=== PATIENT | female | born 2000 | race Caucasian/White ===

== ENCOUNTER 2020-09-11 11:35 | Emergency (ER) | payer MEDICAID, OTHER ==
[~2020-09-11] VITALS: Ht 157.5 cm; Wt 81.6 kg
[2020-09-11 12:52] LABS: Urine Bacteria NONE SEEN /hpf (None Seen); Urine Blood 3+ /uL (Negative); Urine Mucus FEW (None Seen); Urine Specific Gravity 1.015 (1.001-1.035); Urine WBC 3 /hpf (0 - 5)
[2020-09-11 12:57] LABS: Basophils # (auto) 0 10 ^3/uL (0-0.2); Basophils % (auto) 0.2 % (0.0-2.0); Eosinophils # (auto) 0.1 10 ^3/uL (0-0.8); Eosinophils % (auto) 0.6 % (0.0-7.0); Hematocrit 38.5 % (36.0-46.0); Hemoglobin 12.8 g/dL (12.2-16.2); Lymphocytes # (auto) 1.8 10 ^3/uL (0.4-5.4); Lymphocytes % (auto) 18.9 % (10.0-50.0); Mean Corpuscular Hemoglobin 28.5 pg (28.0-32.0); Mean Corpuscular Hgb Conc. 33.3 g/dL (32.0-36.0); Mean Corpuscular Volume 85.5 fL (80.0-100.0); Monocytes # (auto) 0.4 10 ^3/uL (0-1.3); Monocytes % (auto) 4.8 % (0.0-12.0); Neutrophils # (auto) 7.1 10 ^3/uL (1.6-8.6); Neutrophils % (auto) 75.5 % (37.0-80.0); Nucleated Red Blood Cells % 0.1 %; Platelet Count (auto) 277 10^3/uL (140-450); Red Cell Distribution Width 13.2 % (11.8-14.3); White Blood Cell 9.4 10^3/uL (4.4-10.8)
[2020-09-11 13:31] VITALS: BP 108/45
== END 2020-09-11 15:25 | disposition home or self-care (01) ==
LOC: ER 11:35
DX: O41.8X10 Other specified disorders of amniotic fluid and membranes, first trimester, not applicable or unspecified (principal); O46.8X1 Other antepartum hemorrhage, first trimester; Z3A.01 Less than 8 weeks gestation of pregnancy
CPT/HCPCS: 36415; 76801; 81001; 84702; 85025

== ENCOUNTER 2020-09-14 11:51 | Emergency (ER) | payer MEDICAID ==
[~2020-09-14] VITALS: Ht 157.5 cm; Wt 81.6 kg
[2020-09-14 12:23] VITALS: BP 124/66
== END 2020-09-14 13:55 | disposition home or self-care (01) ==
LOC: ER 11:51
DX: O20.8 Other hemorrhage in early pregnancy (principal); Z3A.01 Less than 8 weeks gestation of pregnancy
CPT/HCPCS: 76801

== ENCOUNTER 2021-02-21 12:39 | Observation (INO) | payer MEDICAID ==
[2021-02-21] MEDS ORDERED: PREN-96 PO (13:42)
[2021-02-21 14:26] LABS: Alcohol, Urine < 3.0 mg/dL (0-10); Barbiturate Scree,Urine NEGATIVE (NEGATIVE); Benzodiazephine Screen, Urine NEGATIVE (NEGATIVE); Cannabinoid Screen, Urine POSITIVE (NEGATIVE); Cocaine Screen, Urine NEGATIVE (NEGATIVE); Opiate Scree,Urine NEGATIVE (NEGATIVE); Phencyclidine Screen, Urine NEGATIVE (NEGATIVE)
[2021-02-21 14:34] LABS: Amphetamine Screen, Urine NEGATIVE (NEGATIVE)
== END 2021-02-21 15:48 | disposition home or self-care (01) ==
LOC: LDRP 12:39
PROVIDERS: ADMIT Obstetrics & Gynecology; ATTEND Obstetrics & Gynecology
DX: O26.853 Spotting complicating pregnancy, third trimester (principal); Z3A.32 32 weeks gestation of pregnancy; Z79.899 Other long term (current) drug therapy
CPT/HCPCS: 59025; 76805; 80307; 81002; G0378

== ENCOUNTER 2023-07-13 11:56 | Emergency (ER) | payer MEDICAID ==
[~2023-07-13] VITALS: Ht 157.5 cm; Wt 97.9 kg
[~2023-07-13 11:56] MED LIST: PREN-96 PO
[2023-07-13 12:01] VITALS: BP 106/77; PULSE 89; RESP 18; O2SAT 99
== END 2023-07-13 20:05 | disposition left against medical advice (07) ==
LOC: ER 11:56
DX: M79.675 Pain in left toe(s) (principal); M25.561 Pain in right knee; M25.562 Pain in left knee; Z53.21 Procedure and treatment not carried out due to patient leaving prior to being seen by health care provider

== ENCOUNTER 2025-03-27 11:12 | Emergency (ER) | payer MEDICAID ==
[~2025-03-27] VITALS: Ht 157.5 cm; Wt 72.5 kg
--- NOTE | 2025-03-27 12:12 | ED.PDOC ---
History of Present Illness HPI Comments This is a 24 year old female presenting to the ED with chief complaint of dizziness. Patient reports that she has been experiencing feelings of dizziness/lightheadedness when standing for a few days now along with associated blurred vision, hearing loss, frequent urination, rectal bleeding, leg numbness when sitting, and feeling like bearing down when trying to use the restroom. Patient relays that she is currently an unknown amount of weeks and she has not seen her OBGYN yet. Patient notes she was previously diagnosed last month with Hypokalemia, being prescribed Potassium supplements. Patient denies any nausea, vomiting, diarrhea, abdominal pain, vaginal bleeding, dysuria, headache, syncope, chest pain, SOB, or flank pain. Chief Complaint: Dizziness Time Seen by MD: 12:06 Primary Care Provider: UNKNOWN Reviewed Notes: Nurses Notes, Medications, Allergies Allergies: Coded Allergies: NO KNOWN ALLERGIES (Unverified , 09/14/20) Home Meds Active Scripts Nitrofurantoin Monohydrate Mac (Macrobid) 100 Mg Cap, 100 MG PO BID for 5 Days, #10 CAP Prov:DENILSON HUGHES MD 03/27/25 Reported Medications Vit W/ Ferrous Fumara ( One Daily) Daily Tab, 1 TAB PO DAILY, #90 TAB 3 Refills 02/21/21 Information Source: Patient Mode of Arrival: Ambulatory Severity: Moderate Timing: Days Duration: Since onset Prehospital treatment: None Past Medical History PAST MEDICAL HISTORY: Anxiety Past Medical History (Other): ADHD, PTSD Surgical History: Tonsillectomy POLICE DETECTIVE History: Denies all POLICE DETECTIVE Hx Family History Family History: Reviewed,noncontributory to illness, Family hx of HTN Social History Smoker: Cigarettes Alcohol: Denies ETOH Use Drugs: Marijuana Lives In: Home Constitutional: denies: chills, diaphoresis, fatigue, fever, malaise, sweats, weakness, others EENTM: reports: blurred vision, hearing loss; denies: double vision, ear bleeding, ear discharge, ear drainage, ear pain, ear ringing, eye pain, eye redness, mouth pain, mouth swelling, nasal discharge, nose bleeding, nose congestion, nose pain, photophobia, tearing, throat pain, throat swelling, voice changes, others Respiratory: denies: cough, hemoptysis, orthopnea, SOB at rest, shortness of breath, SOB with excertion, stridor, wheezing, others Cardiovascular: reports: lightheadedness; denies: chest pain, dizzy spells, diaphoresis, Dyspnea on exertion, edema, irregular heart beat, left arm pain, palpitations, PND, syncope, others Gastrointestinal: reports: rectal bleeding; denies: abdomen distended, abdominal pain, blood streaked bowels, constipated, diarrhea, dysphagia, difficulty swallowing, hematemesis, melena, nausea, poor appetite, poor fluid intake, rectal pain, vomiting, others Genitourinary: reports: frequency, ; denies: abnormal vagina bleeding, burning, dyspareunia, dysuria, flank pain, hematuria, incontinence, pain, vagina discharge, urgency, others Neurological: reports: dizziness, numbness; denies: fainting, headache, left sided numbness, left sided weakness, paresthesia, pre-existing deficit, right sided numbness, right sided weakness, seizure, speech problems, tingling, tremors, weakness, others Musculoskeletal: denies: back pain, gout, joint pain, joint swelling, muscle pain, muscle stiffness, neck pain, others Integumetry: denies: bruises, change in color, change in hair/nails, dryness, laceration, lesions, lumps, rash, wounds, others Allergic/Immunocompromised: denies: Difficulty Healing, Frequent Infections, Hives, Itching, others Hematologic/Lymphatic: denies: anemia, blood clots, easy bleeding, easy bruising, swollen glands, others Endocrine: denies: excessive hunger, excessive sweating, excessive thirst, excessive urination, flushing, intolerance to cold, intolerance to heat, unexplained weight gain, unexplained weight loss, others Psychiatric: denies: anxiety, bipolar disorder, depression, hopeless, panic disorder, schizophrenia, sleepless, suicidal, others All Other Systems: Reviewed and Negative Physical Exam General Appearance: Mild Distress HEENT: Normal ENT Inspection, Pharynx Normal, TMs Normal Neck: Full Range of Motion, Non-Tender, Normal, Normal Inspection Respiratory: Chest Non-Tender, Lungs Clear, No Accessory Muscle Use, No R espiratory Distress, Normal Breath Sounds Cardiovascular: No Edema, No JVD, No Murmur, No Gallop, Normal Peripheral Pulses, Regular Rate/Rhythm Breast Exam: Deferred Gastrointestinal: No Organomegaly, Non Tender, No Pulsatile Mass, Normal Bowel Sounds, Soft Genitalia: Deferred Pelvic: Deferred Rectal: Deferred Extremities: No calf tenderness, Normal capillary refill, Normal inspection, Normal range of motion, Non-tender, No pedal edema Musculoskeletal : Apperance: Normal Neurologic: Alert, 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 Was a procedure done?: No EKG EKG : Pulse Rate (adult): 82 [place]: Normal Cardiac Rhythm: NSR Block: None Hypertrophy: None ST: Normal Comments Low voltage Differential Dx Considerations may include: UTI in , generalized weakness X-Ray, Labs, Meds, VS Vital Signs Date Time Temp Pulse Resp B/P (MAP) Pulse Ox O2 Delivery O2 Flow Rate FiO2 03/27/25 13:39 97.9 76 18 103/64 (77) 98 97.9 03/27/25 12:48 82 03/27/25 12:44 82 03/27/25 11:12 98.6 84 16 110/72 (85) 99 98.6 Lab Test 03/27/25 13:59 03/27/25 13:02 03/27/25 12:08 Range/Units Sodium Level 139 136-145 mmol/L Potassium Level 3.7 3.5-5.1 mmol/L Chloride Level 109 H 98-107 mmol/L Carbon Dioxide Level 23 20-31 mmol/L Anion Gap 7 5-15 Blood Urea Nitrogen < 5 L 9-23 mg/dL Creatinine 0.48 L 0.550-1.02 mg/dL Glomerular Filtration Rate Calc 134 >90 mL/min BUN/Creatinine Ratio 10.4 10.0-20.0 Serum Glucose 82 74-106 mg/dL Calcium Level 10.1 8.7-10.4 mg/dL White Blood Count 8.2 4.4-10.8 10^3/uL Red Blood Count 4.67 4.0-5.20 10^6/uL Hemoglobin 13.5 12.2-16.2 g/dL Hematocrit 40.1 36.0-46.0 % Mean Corpuscular Volume 85.8 80.0-100.0 fL Mean Corpuscular Hemoglobin 28.8 28.0-32.0 pg Mean Corpuscular Hemoglobin Concent 33.6 32.0-36.0 g/dL Red Cell Distribution Width 13.8 11.8-14.3 % Platelet Count 315 140-450 10^3/uL Mean Platelet Volume 8.4 6.9-10.8 fL Neutrophils (%) (Auto) 65.9 37.0-80.0 % Lymphocytes (%) (Auto) 26.4 10.0-50.0 % Monocytes (%) (Auto) 5.8 0.0-12.0 % Eosinophils (%) (Auto) 1.6 0.0-7.0 % Basophils (%) (Auto) 0.3 0.0-2.0 % Neutrophils # (Auto) 5.4 1.6-8.6 10 ^3/uL Lymphocytes # (Auto) 2.2 0.4-5.4 10 ^3/uL Monocytes # (Auto) 0.5 0-1.3 10 ^3/uL Eosinophils # (Auto) 0.1 0-0.8 10 ^3/uL Basophils # (Auto) 0 0-0.2 10 ^3/uL Nucleated Red Blood Cells 0.0 % Beta HCG, Quantitative 002421.4 H 1.5-4.2 mIU/mL Urine Color Colorless Yellow Urine Clarity Turbid H Clear Urine pH 6.5 5.0-9.0 Urine Specific [place] 1.011 1.001-1.035 Urine Protein Negative Negative Urine Ketones Negative Negative Urine Blood Negative Negative /uL Urine Nitrite Negative Negative Urine Bilirubin Negative Negative Urine Urobilinogen Normal Negative mg/dL Urine Leukocyte Esterase 2+ Negative /uL Urine RBC 2 0 - 4 /hpf Urine Microscopic WBC 18 H 0-5 /HPF Urine Squamous Epithelial Cells Mod <5 /hpf Urine Bacteria Few H None Seen /hpf Urine Glucose Normal Normal mg/dL The urine test is positive for UTI The quantitative hCG is 307645 The patient's CBC and chemistry panel are within normal limits The pelvic ultrasound shows: IMPRESSION: 1. IUP single live fetus 9 weeks 3 days AUA corresponding to an MARY of 10/27/2025. 2. FHR: 175 beats per minute 3. Small subchorionic hemorrhage measuring 1.5 x 1.1 x 0.8 cm The patient's urine test is positive for UTI The patient is being discharged on Macrobid Patient will return the emergency department's condition worsens Images Reviewed?: Images reviewed and evaluated by me Time of 1ST Reevaluation: 15:51 Reevaluation 1ST: Improved Patient Education/Counseling: Diagnosis, Treatment, Prognosis, Need For Follow Up Family Education/Counseling: No Family Present Additional Information Reviewed patient's previous visit(s): 07/13/23 for left big toe pain The following tests were ordered, and results were reviewed by me: EKG Additional information was gathered from interviewing the following independent historian: I reviewed and agreed with the following test results read by other provider: I discussed treatments and results with medical personnel and: Patient Comprehensive systems review obtained and negative except for what is stated in the HPI. SEPSIS Sepsis Screen Physician Orders Heplock Iv (03/27/25 12:08) Ob Ultrasound Comp Less 14wks (03/27/25 12:08) Electrocardigram (03/27/25 13:02) Vital Signs Date Time Temp Pulse Resp B/P (MAP) Pulse Ox O2 Delivery O2 Flow Rate FiO2 03/27/25 13:39 97.9 76 18 103/64 (77) 98 97.9 03/27/25 12:48 82 03/27/25 12:44 82 03/27/25 11:12 98.6 84 16 110/72 (85) 99 98.6 Laboratory Tests Test 03/27/25 13:02 White Blood Count 8.2 10^3/uL (4.4-10.8) Departure 1 Departure Time of Disposition: 15:51 Impression: Primary Impression: UTI in Qualified Codes: O23.40 - Unspecified infection of urinary tract in preg lidya, unspecified trimester Additional Impression: Threatened Disposition: 01 HOME / SELF CARE / HOMELESS Condition: Fair e-Prescriptions Nitrofurantoin Monohydrate Mac (Macrobid) 100 Mg Cap 100 MG PO BID for 5 Days, #10 CAP Prov: DENILSON HUGHES MD 03/27/25 Discharged With: Self Critical Care Note Critical Care Time?: No Stability Stability form required: No Heart Score Heart Score: Heart Score Response (Comments) Value History N/A 0 EKG N/A 0 Age N/A 0 Risk Factors N/A 0 Troponin N/A 0 Total 0 I personally scribed for DENILSON HUGHES MD ([email or web address]) on 7/8/25 at 12:12. Electronically submitted by Jose Dumont ([email or web address]). I personally scribed for DENILSON HUGHES MD ([email or web address]) on 03/27/25 at 12:48. Electronically submitted by Jose Dumont ([email or web address]). DENILSON HUGHES MD Mar 27, 2025 12:12
[2025-03-27 13:05] LABS: Urine Protein, UAD Negative (Negative)
[2025-03-27 13:20] LABS: Hematocrit 40.1 % (36.0-46.0); Hemoglobin 13.5 g/dL (12.2-16.2); Mean Corpuscular Hemoglobin 28.8 pg (28.0-32.0); Mean Corpuscular Volume 85.8 fL (80.0-100.0); Nucleated Red Blood Cells % 0.0 %
[2025-03-27 13:39] VITALS: BP 103/64; PULSE 76; RESP 18; TEMP 97.9; O2SAT 98
[2025-03-27 14:21] LABS: Anion Gap 7 (5-15)
[2025-03-27 14:22] LABS: Carbon Dioxide 23 mmol/L (20-31); Chloride 109 mmol/L (98-107); Potassium 3.7 mmol/L (3.5-5.1); Sodium 139 mmol/L (136-145)
[2025-03-27 14:23] LABS: Calcium 10.1 mg/dL (8.7-10.4)
[2025-03-27 14:47] LABS: BUN/Creatinine Ratio 10.4 (10.0-20.0); Blood Urea Nitrogen < 5 mg/dL (9-23); Glucose 82 mg/dL (74-106)
--- NOTE | 2025-03-27 14:55 | DVH ---
OB ULTRASOUND <14 WEEKS: HISTORY: pain TECHNIQUE: Ultrasound OB complete <14 weeks. Multiple real-time grayscale sonographic images of the p dayanna with duplex Doppler color flow, spectral and M-mode analysis. TRANSDUCERS: Transabdominal FINDINGS: The uterus measures 9.8 x 7.2 x 8.7 The cervix not measured Right ovary measures 2.6 x 1.5 x 3.1 with normal Doppler color flow Left ovary measures 2.4 x 1.8 x 2.7 with normal Doppler color flow. 1.7 x 1.4 x 1.9 cm anechoic lesi on left ovary consistent with a small follicle. IUP single live fetus at 9 weeks 3 days average ultrasound age based on mean crown-rump length of 2.7 cm and gestational sac size of 3.9 cm heart rate detected at 175 beats per minute. Yolk sac visualized. Amniotic fluid adequate Martina-gestational space: There is a 1.5 x 1.1 x 0.8 cm subchorionic hemorrhage IMPRESSION: 1. IUP single live fetus 9 weeks 3 days AUA corresponding to an MARY of 10/27/2025. 2. FHR: 175 beats per minute 3. Small subchorionic hemorrhage measuring 1.5 x 1.1 x 0.8 cm
[2025-03-27] MEDS ORDERED: NITR-87 PO (15:12)
--- NOTE | 2025-03-28 07:23 | ECG ---
[facility] Test Date: 2025-03-27 Test Time: 12:44:54 Pat Name: DONALD CANTU Department: ER Room: Gender: F Legal Compliance Officer: SABRA : 2000 Requested By: DENILSON HUGHES Order Number: [id number] Reading MD: Micheal Ware Measurements Intervals [place] Rate: 82 P: 64 [place]: 135 QRS: 32 QRSD: 85 T: 12 QT: 368 QTc: 430 Interpretive Statements Sinus rhythm Low voltage, precordial leads Electronically Signed On 03-29-2025 19:03:01 PDT by Micheal Ware Please click the below link to view image of tracing.
== END 2025-03-27 16:33 | disposition home or self-care (01) ==
LOC: ER 11:12
DX: O20.0 Threatened abortion (principal); O23.41 Unspecified infection of urinary tract in pregnancy, first trimester; N39.0 Urinary tract infection, site not specified; F17.210 Nicotine dependence, cigarettes, uncomplicated; Z3A.09 9 weeks gestation of pregnancy; Z90.89 Acquired absence of other organs
CPT/HCPCS: 36415; 76801; 80048; 81001; 84702; 85025; 93005

== ENCOUNTER 2025-05-10 01:09 | Emergency (ER) | payer MEDICAID ==
[~2025-05-10] VITALS: Ht 157.5 cm; Wt 68.3 kg
[~2025-05-10 01:09] MED LIST changes: +NITR-87 PO
--- NOTE | 2025-05-10 02:06 | ED.PDOC ---
Back pain HPI HPI Comments 24-year-old female presents to ER with complaints of back pain x1 week. Patient reports that she has been experiencing intermittent lower back pain x 1 week that got worse with associated "low blood pressure" x 1 day. She rates her current lower back pain a 1/10 without radiation. Patient presents to ER norm otensive, ambulatory, with steady gait, in no distress and states that she did have a miscarriage on 04/14/2025. Denies fever, body aches, chills, shortness of breath, chest pain, palpitations, nausea/vomiting, abdominal/pelvic pain, flank pain, extremity weakness, hematuria/changes in urination, changes in bm or any further symptoms/complaints Chief Complaint: Back Pain Time Seen by MD: :26 Primary Care Provider: UNKNOWN Reviewed Notes: Nurses Notes, Medications, Allergies Allergies: Coded Allergies: NO KNOWN ALLERGIES (Unverified , 09/14/20) Home Meds Active Scripts Nitrofurantoin Monohydrate Mac (Macrobid) 100 Mg Cap, 100 MG PO BID for 5 Days, #10 CAP Prov:DENILSON HUGHES MD 03/27/25 Reported Medications Vit W/ Ferrous Fumara ( One Daily) Daily Tab, 1 TAB PO DAILY, #90 TAB 3 Refills 02/21/21 Information Source: Patient Mode of Arrival: Ambulatory Past Medical History PAST MEDICAL HISTORY: Anxiety Surgical History: Tonsillectomy OIL HEATERMAN History: Denies all OIL HEATERMAN Hx Family History Family History: Unknown Social History Smoker: Cigarettes, Less Than 1 Pack/Day Alcohol: Denies ETOH Use Drugs: Marijuana Lives In: Home Constitutional: denies: chills, diaphoresis, fatigue, fever, malaise, sweats, weakness, others EENTM: denies: blurred vision, double vision, ear bleeding, ear discharge, ear drainage, ear pain, ear ringing, eye pain, eye redness, hearing loss, mouth pain, mouth swelling, nasal discharge, nose bleeding, nose congestion, nose pain, photophobia, tearing, throat pain, throat swelling, voice changes, others Respiratory: denies: cough, hemoptysis, orthopnea, SOB at rest, shortness of breath, SOB with excertion, stridor, wheezing, others Cardiovascular: denies: chest pain, dizzy spells, diaphoresis, Dyspnea on exertion, edema, irregular heart beat, left arm pain, lightheadedness, palpitations, PND, syncope, others Gastrointestinal: denies: abdomen distended, abdominal pain, blood streaked bowels, constipated, diarrhea, dysphagia, difficulty swallowing, hematemesis, melena, nausea, poor appetite, poor fluid intake, rectal bleeding, rectal pain, vomiting, others Genitourinary: reports: others (As stated in HPI) Neurological: denies: dizziness, fainting, headache, left sided numbness, left sided weakness, numbness, paresthesia, pre-existing deficit, right sided numbness, right sided weakness, seizure, speech problems, tingling, tremors, weakness, others Musculoskeletal: reports: others (As stated in HPI) Integumetry: denies: bruises, change in color, change in hair/nails, dryness, laceration, lesions, lumps, rash, wounds, others Allergic/Immunocompromised: denies: Difficulty Healing, Frequent Infections, Hives, Itching, others Hematologic/Lymphatic: denies: anemia, blood clots, easy bleeding, easy bruising, swollen glands, others Endocrine: denies: excessive hunger, excessive sweating, excessive thirst, excessive urination, flushing, intolerance to cold, intolerance to heat, unexplained weight gain, unexplained weight loss, others Psychiatric: denies: anxiety, bipolar disorder, depression, hopeless, panic disorder, schizophrenia, sleepless, suicidal, others Physical Exam General Appearance: No Apparent Distress HEENT: Normal ENT Inspection, PERRL/EOMI, Pharynx Normal, TMs Normal Neck: Full Range of Motion, Non-Tender, Normal Respiratory: Chest Non-Tender, Lungs Clear, No Accessory Muscle Use, No Respira tory Distress, Normal Breath Sounds Cardiovascular: No Murmur, No Gallop, Regular Rate/Rhythm Breast Exam: Deferred Gastrointestinal: Non Tender, No Pulsatile Mass, Soft Genitalia: Deferred Pelvic: Deferred Rectal: Deferred Extremities: Normal capillary refill, Normal range of motion Musculoskeletal : Extremity Location: Back (No CVA tenderness/TTP to flanks noted bilaterally. 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 Was a procedure done?: No Sedation Sedation?: No EKG EKG : Pulse Rate (adult): 91 [place]: Normal Cardiac Rhythm: NSR (SR) Block: None Hypertrophy: None ST: Normal Back Pain Differential Dx Differential Diagnosis: AAA, Ectopic Pregnany, Fracture, Urolithiasis, Other (Neurovascular injury) X-Ray, Labs, Meds, VS Vital Signs Date Time Temp Pulse Resp B/P (MAP) Pulse Ox O2 Delivery O2 Flow Rate FiO2 05/10/25 03:00 Room Air 05/10/25 02:12 91 05/10/25 01:34 91 05/10/25 01:22 98.3 117 16 105/63 99 98.3 Lab Test 05/10/25 03:24 05/10/25 01:52 Range/Units Urine Color Colorless Yellow Urine Clarity Turbid H Clear Urine pH 6.0 5.0-9.0 Urine Specific [place] 1.004 1.001-1.035 Urine Protein Negative Negative Urine Ketones Negative Negative Urine Blood 1+ H Negative /uL Urine Nitrite Negative Negative Urine Bilirubin Negative Negative Urine Urobilinogen Normal Negative mg/dL Urine Leukocyte Esterase 3+ Negative /uL Urine RBC 9 0 - 4 /hpf Urine Microscopic WBC 12 H 0-5 /HPF Urine Squamous Epithelial Cells Mod <5 /hpf Urine Bacteria Few H None Seen /hpf Urine Glucose Normal Normal mg/dL Urine Test See comment A Negative White Blood Count 9.7 4.4-10.8 10^3/uL Red Blood Count 4.53 4.0-5.20 10^6/uL Hemoglobin 13.2 12.2-16.2 g/dL Hematocrit 39.4 36.0-46.0 % Mean Corpuscular Volume 87.0 80.0-100.0 fL Mean Corpuscular Hemoglobin 29.1 28.0-32.0 pg Mean Corpuscular Hemoglobin Concent 33.4 32.0-36.0 g/dL Red Cell Distribution Width 13.6 11.8-14.3 % Platelet Count 300 140-450 10^3/uL Mean Platelet Volume 8.6 6.9-10.8 fL Neutrophils (%) (Auto) 62.0 37.0-80.0 % Lymphocytes (%) (Auto) 30.0 10.0-50.0 % Monocytes (%) (Auto) 6.4 0.0-12.0 % Eosinophils (%) (Auto) 1.3 0.0-7.0 % Basophils (%) (Auto) 0.3 0.0-2.0 % Neutrophils # (Auto) 6.0 1.6-8.6 10 ^3/uL Lymphocytes # (Auto) 2.9 0.4-5.4 10 ^3/uL Monocytes # (Auto) 0.6 0-1.3 10 ^3/uL Eosinophils # (Auto) 0.1 0-0.8 10 ^3/uL Basophils # (Auto) 0 0-0.2 10 ^3/uL Nucleated Red Blood Cells 0.0 % Sodium Level 139 136-145 mmol/L Potassium Level 3.0 L 3.5-5.1 mmol/L Chloride Level 106 98-107 mmol/L Carbon Dioxide Level 25 20-31 mmol/L Anion Gap 8 5-15 Blood Urea Nitrogen < 5 L 9-23 mg/dL Creatinine 0.71 0.550-1.02 mg/dL Glomerular Filtration Rate Calc 120 >90 mL/min BUN/Creatinine Ratio 7.0 L 10.0-20.0 Serum Glucose 96 74-106 mg/dL Calcium Level 9.8 8.7-10.4 mg/dL Current Medications Medications (Trade) Dose Ordered Sig/Cornel Route Start Time Stop Time Status Last Admin Potassium Chloride (Klor-Con Tablet) 40 meq ONCE ONCE PO 05/10/25 02:45 05/10/25 02:46 DC 05/10/25 03:30 CBC reviewed-unremarkable BMP reviewed-potassium 3.0 Potassium 40 mEq p.o. ordered Urinalysis reviewed-urine blood 1+, urine leukocyte esterase 3+, urine nitrites negative Urine reviewed- weak positive - patient reports history of recent miscarriage Patient had improvement in symptoms, denied any pain and in no distress prior to discharge Advised to drink plenty of fluids Advised to follow up with PCP in 1-2 days Patient verbalized understanding and agreeable with current plan of care Advised to return to ER immediately if symptoms worsen Time of 1ST Reevaluation: 02:02 Reevaluation 1ST: N/A Patient Education/Counseling: Diagnosis, Treatment, Prognosis, Need For Follow Up Family Education/Counseling: No Family Present SEPSIS Sepsis Screen Date sepsis recognized/suspect: May 10, 2025 Time Sepsis recognized/suspect: 0122 Recent Procedure: No On Antibiotic Therapy: No Respiratory Rate >20: No Heart Rate >90: Yes Temp<36 C (96.8 F) or >38.3 C: No SBP <90 or MAP <65 mmHG: No New Acute Mental Status Change: No Is the patient on CPAP, BIPAP,: No Physician Orders Electrocardigram (05/10/25 01:29) Vital Signs Date Time Temp Pulse Resp B/P (MAP) Pulse Ox O2 Delivery O2 Flow Rate FiO2 05/10/25 03:00 Room Air 05/10/25 02:12 91 05/10/25 01:34 91 05/10/25 01:22 98.3 117 16 105/63 99 98.3 Laboratory Tests Test 05/10/25 01:52 White Blood Count 9.7 10^3/uL (4.4-10.8) Medications Medications Dose Ordered Sig/Cornel Route Start Time Stop Time Status Last Admin Dose Admin Potassium Chloride 40 meq ONCE ONCE PO 05/10/25 02:45 05/10/25 02:46 DC 05/10/25 03:30 Departure 1 Departure Time of Disposition: 04:32 Impression: Primary Impression: UTI (urinary tract infection) Qualified Codes: N30.01 - Acute cystitis with hematuria Disposition: 01 HOME / SELF CARE / HOMELESS Condition: Stable e-Prescriptions Acetaminophen (Acetaminophen) 500 Mg Tab 500 MG PO Q4HPRN, #30 TAB 0 Refills Prov: LEXI NOLASCO 05/10/25 Nitrofurantoin Monohydrate Mac (Macrobid) 100 Mg Cap 100 MG PO BID for 7 Days, #14 CAP 0 Refills Prov: LEXI NOLASCO 05/10/25 Critical Care Note Critical Care Time?: No Stability Stability form required: No Heart Score Heart Score: Heart Score Response (Comments) Value History N/A 0 EKG N/A 0 Age N/A 0 Risk Factors N/A 0 Troponin N/A 0 Total 0 LEXI NOLASCO May 10, 2025 02:06
[2025-05-10 02:27] LABS: Hematocrit 39.4 % (36.0-46.0); Hemoglobin 13.2 g/dL (12.2-16.2); Mean Corpuscular Hemoglobin 29.1 pg (28.0-32.0); Mean Corpuscular Volume 87.0 fL (80.0-100.0); Nucleated Red Blood Cells % 0.0 %
[2025-05-10 02:28] LABS: Chloride 106 mmol/L (98-107); Sodium 139 mmol/L (136-145)
[2025-05-10 02:29] LABS: Anion Gap 8 (5-15); Calcium 9.8 mg/dL (8.7-10.4); Carbon Dioxide 25 mmol/L (20-31)
[2025-05-10 02:31] LABS: Potassium 3.0 mmol/L (3.5-5.1)
[2025-05-10 02:34] LABS: Glucose 96 mg/dL (74-106)
[2025-05-10 02:38] LABS: BUN/Creatinine Ratio 7.0 (10.0-20.0); Blood Urea Nitrogen < 5 mg/dL (9-23)
[2025-05-10] MEDS: POTASSIUM CHL 20 Meq TABLET PO ONE (03:30)
[2025-05-10 04:29] LABS: Urine Protein, UAD Negative (Negative)
[2025-05-10] MEDS ORDERED: NITR-87 PO (04:37)
[2025-05-10] MEDS ORDERED: ACET500T58 PO (04:37)
[2025-05-10] MEDS: cefTRIAXone SOD 1,000 MG VL IM ONE (04:45)
[2025-05-10 06:04] VITALS: BP 112/73; PULSE 84; RESP 18; TEMP 98.9; O2SAT 98
--- NOTE | 2025-05-10 07:02 | ECG ---
[facility] Test Date: 2025-05-10 Test Time: 01:34:06 Pat Name: DONALD CANTU Department: ED Room: Gender: F No Experience: CINTHYA : 2000 Requested By: LEXI NOLASCO Order Number: [id number] Reading MD: Measurements Intervals [place] Rate: 91 P: 69 [place]: 135 QRS: 66 QRSD: 91 T: 35 QT: 354 QTc: 436 Interpretive Statements Sinus rhythm Please click the below link to view image of tracing.
== END 2025-05-10 06:51 | disposition home or self-care (01) ==
LOC: ER 01:09
DX: N39.0 Urinary tract infection, site not specified (principal); F17.210 Nicotine dependence, cigarettes, uncomplicated; F12.90 Cannabis use, unspecified, uncomplicated; F41.9 Anxiety disorder, unspecified; Z79.899 Other long term (current) drug therapy; Z90.89 Acquired absence of other organs
CPT/HCPCS: 36415; 80048; 81001; 81025; 85025; 93005; J0696

== ENCOUNTER 2025-05-18 12:36 | Emergency (ER) | payer MEDICAID ==
[~2025-05-18] VITALS: Ht 157.5 cm; Wt 70.2 kg
[~2025-05-18 12:36] MED LIST changes: +ACET500T58 PO
[2025-05-18 13:21] VITALS: BP 109/59; PULSE 56; RESP 14; TEMP 98.2; O2SAT 99
[2025-05-18 13:35] LABS: Hematocrit 41.8 % (36.0-46.0); Hemoglobin 13.9 g/dL (12.2-16.2); Mean Corpuscular Hemoglobin 28.9 pg (28.0-32.0); Mean Corpuscular Volume 86.9 fL (80.0-100.0); Nucleated Red Blood Cells % 0.1 %
[2025-05-18 13:49] LABS: Alanine Aminotransferase 15 U/L (7-40); Alkaline Phosphatase 68 U/L (46-116); Anion Gap 6 (5-15); Calcium 9.8 mg/dL (8.7-10.4); Carbon Dioxide 25 mmol/L (20-31); Glucose 82 mg/dL (74-106); Magnesium 2.1 mg/dL (1.6-2.6); Potassium 4.2 mmol/L (3.5-5.1); Sodium 143 mmol/L (136-145); Total Protein 7.6 g/dL (5.7-8.2)
[2025-05-18 13:50] LABS: Bilirubin, Total 0.3 mg/dL (0.2-1.0)
[2025-05-18 14:05] LABS: Albumin 5.0 g/dL (3.2-4.8); BUN/Creatinine Ratio 7.5 (10.0-20.0); Blood Urea Nitrogen < 5 mg/dL (9-23); Chloride 112 mmol/L (98-107)
[2025-05-18 14:11] LABS: Urine Protein, UAD Negative (Negative)
[2025-05-18] MEDS: LORazepam 0.5 MG TAB PO ONE (14:56)
--- NOTE | 2025-05-18 15:08 | DVH ---
EXAM DESCRIPTION: TRANSABDOMINAL PELVIC ULTRASOUND CLINICAL HISTORY: Hx of Miscarriage, vaginal bleeding COMPARISON: US OB ULTRASOUND COMP LESS 14WKS on DOS: 03/27/25, OB ULTRASOUND COMP GTR 14 WKS on DOS: 02/21/21 TECHNIQUE: Transabdominal ultrasound examination of the pelvis was performed. FINDINGS: Uterus: 8.9 X 7.3 X 5.5 Cm. No uterine masses. Endometrial echo complex: Small amount of free fluid in the endometrial canal. There is focal hetero genous thickening and vascularity of the endometrial complex at the fundus measuring 2.8 cm. Right ovary: 1.7 X 1.5 X 1.9 Cm. No right adnexal masses. Normal Doppler flow in the right ovary. Left ovary: 2.9 X 1.7 X 2.2 Cm. No left adnexal masses. Normal Doppler flow on the left ovary. Intrapelvic free fluid: None. IMPRESSION: 1. Focal endometrial thickening with vascularity at the uterine fundus, suspicious for retained produ cts of conception. Recommend OBGYN consultation.
[2025-05-18 15:11] LABS: Benzodiazephine Screen, Urine Neg (NEGATIVE); Cannabinoid Screen, Urine Pos (NEGATIVE)
[2025-05-18 15:13] LABS: Amphetamine Screen, Urine Neg (NEGATIVE); Barbiturate Scree,Urine Neg (NEGATIVE); Cocaine Screen, Urine Neg (NEGATIVE); Opiate Scree,Urine Neg (NEGATIVE); Phencyclidine Screen, Urine Neg (NEGATIVE)
--- NOTE | 2025-05-18 16:59 | ED.PDOC ---
History of Present Illness HPI Comments This is a 24-year-old female with past medical history of seizure, PTSD, and miscarriage (1 month back), came to the hospital due to restlessness and vaginal bleeding. Per patient, she had miscarriage 1 month back and subsequently had stopped bleeding but since 2 days she developed back vaginal bleeding. She also reports of lower abdominal pain. Per patient, she has history of anxiety (previously was using hydroxyzine, Ativan and clonidine), but recently has not been using any medicine. She she also reports that recently has been high stress (underwent to break ups within last month with boyfriend and girlfriend), last night went to crisis Center, by taking hydroxyzine was feeling better, today morning she was still feeling stress, was not able to see a psychiatrist and crisis Center, which prompted ER visit. She also reports of sleep disturbance, decreased oral intake, hopelessness, but denies suicidal ideation or hurting herself. PMHx: Miscarriage, anxiety, PTSD Social history: Smokes marijuana and cigarettes Home medication: Does not take any medicine Chief Complaint: Anxiety Time Seen by MD: 12:39 Primary Care Provider: UNKNOWN Allergies: Coded Allergies: NO KNOWN ALLERGIES (Unverified , 09/14/20) Home Meds Active Scripts Misoprostol (Cytotec) 200 Mcg Tab, 4 TAB VG ONCE, #4 TAB Prov:AIDA CASTILLO RESDIENT 05/18/25 Cephalexin Monohydrate (Cephalexin) 500 Mg Tab, 500 MG PO BID for 5 Days, #10 TAB Prov:HEAIDA MCCAIN RESDIENT 05/18/25 Ibuprofen Micronized (Ibuprofen) 400 Mg Tab, 400 MG PO BID for 5 Days, #10 TAB Prov:ALEXIS CASTILLOWAD RESDIENT 05/18/25 Acetaminophen (Acetaminophen) 500 Mg Tab, 500 MG PO Q4HPRN, #30 TAB 0 Refills Prov:LEXI NOLASCO 05/10/25 Nitrofurantoin Monohydrate Mac (Macrobid) 100 Mg Cap, 100 MG PO BID for 7 Days, #14 CAP 0 Refills Prov:LEXI NOLASCO 05/10/25 Nitrofurantoin Monohydrate Mac (Macrobid) 100 Mg Cap, 100 MG PO BID for 5 Days, #10 CAP Prov:DENILSON HUGHES MD 03/27/25 Reported Medications Vit W/ Ferrous Fumara ( One Daily) Daily Tab, 1 TAB PO DAILY, #90 TAB 3 Refills 02/21/21 Mode of Arrival: Ambulatory Severity: Mild Timing: Months Past Medical History PAST MEDICAL HISTORY: Anxiety Past Medical History (Other): PTSD, miscarriage Surgical History: Tonsillectomy FRINGE KNOTTER History: Denies all FRINGE KNOTTER Hx Family History Family History: Unknown Social History Smoker: Cigarettes, Less Than 1 Pack/Day Alcohol: Denies ETOH Use Drugs: Marijuana Lives In: Home Constitutional: denies: chills, diaphoresis, fatigue, fever, malaise, sweats, weakness, others EENTM: denies: blurred vision, double vision, ear bleeding, ear discharge, ear drainage, ear pain, ear ringing, eye pain, eye redness, hearing loss, mouth pain, mouth swelling, nasal discharge, nose bleeding, nose congestion, nose pa in, photophobia, tearing, throat pain, throat swelling, voice changes, others Respiratory: denies: cough, hemoptysis, orthopnea, SOB at rest, shortness of breath, SOB with excertion, stridor, wheezing, others Gastrointestinal: reports: abdominal pain; denies: abdomen distended, blood streaked bowels, constipated, diarrhea, dysphagia, difficulty swallowing, hematemesis, melena, nausea, poor appetite, poor fluid intake, rectal bleeding, rectal pain, vomiting, others Genitourinary: reports: abnormal vagina bleeding, vagina discharge Neurological: denies: dizziness, fainting, headache, left sided numbness, left sided weakness, numbness, paresthesia, pre-existing deficit, right sided numbness, right sided weakness, seizure, speech problems, tingling, tremors, w eakness, others Musculoskeletal: denies: back pain, gout, joint pain, joint swelling, muscle pain, muscle stiffness, neck pain, others Integumetry: denies: bruises, change in color, change in hair/nails, dryness, laceration, lesions, lumps, rash, wounds, others Allergic/Immunocompromised: denies: Difficulty Healing, Frequent Infections, Hives, Itching, others Hematologic/Lymphatic: denies: anemia, blood clots, easy bleeding, easy bruising, swollen glands, others Endocrine: denies: excessive hunger, excessive sweating, excessive thirst, excessive urination, flushing, intolerance to cold, intolerance to heat, unexplained weight gain, unexplained weight loss, others Psychiatric: denies: anxiety, bipolar disorder, depression, hopeless, panic disorder, schizophrenia, sleepless, suicidal, others Physical Exam General Appearance: No Apparent Distress, Normal HEENT: Normal ENT Inspection, Pharynx Normal, TMs Normal Neck: Full Range of Motion, Non-Tender, Normal, Normal Inspection Respiratory: Chest Non-Tender, Lungs Clear, No Accessory Muscle Use, No Respiratory Distress, Normal Breath Sounds Cardiovascular: No Edema, No JVD, No Murmur, No Gallop, Normal Peripheral Pulses, Regular Rate/Rhythm Breast Exam: Deferred Gastrointestinal: Tenderness Genitalia: Deferred Pelvic: Deferred Rectal: Deferred Extremities: No calf tenderness, Normal capillary refill, Normal inspection, Normal range of motion, Non-tender, No pedal edema Neurologic: Alert, dehydration plant operator II-XII 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 Was a procedure done?: No Differential Dx Considerations may include: Miscarriage Anxiety PTSD UTI X-Ray, Labs, Meds, VS Vital Signs Date Time Temp Pulse Resp B/P (MAP) Pulse Ox O2 Delivery O2 Flow Rate FiO2 05/18/25 13:24 Room Air* 0 21 05/18/25 13:21 98.2 56 14 109/59 (76) 99 98.2 05/18/25 12:38 98.2 76 16 113/77 100 98.2 Lab Test 05/18/25 13:40 05/18/25 13:39 05/18/25 13:17 Range/Units Urine Opiates Screen Neg NEGATIVE Urine Fentanyl Screen Neg NEGATIVE Urine Barbiturates Screen Neg NEGATIVE Urine Phencyclidine Screen Neg NEGATIVE Urine Amphetamines Screen Neg NEGATIVE Urine Benzodiazepines Screen Neg NEGATIVE Urine Cocaine Screen Neg NEGATIVE Urine Cannabinoids Screen Pos NEGATIVE Urine Color Colorless Yellow Urine Clarity Turbid H Clear Urine pH 6.5 5.0-9.0 Urine Specific [place] 1.004 1.001-1.035 Urine Protein Negative Negative Urine Ketones Negative Negative Urine Blood 3+ H Negative /uL Urine Nitrite Negative Negative Urine Bilirubin Negative Negative Urine Urobilinogen Normal Negative mg/dL Urine Leukocyte Esterase 3+ Negative /uL Urine RBC 20 0 - 4 /hpf Urine Microscopic WBC 40 H 0-5 /HPF Urine Squamous Epithelial Cells Mod <5 /hpf Urine Bacteria Few H None Seen /hpf Urine Glucose Normal Normal mg/dL White Blood Count 7.2 4.4-10.8 10^3/uL Red Blood Count 4.81 4.0-5.20 10^6/uL Hemoglobin 13.9 12.2-16.2 g/dL Hematocrit 41.8 36.0-46.0 % Mean Corpuscular Volume 86.9 80.0-100.0 fL Mean Corpuscular Hemoglobin 28.9 28.0-32.0 pg Mean Corpuscular Hemoglobin Concent 33.2 32.0-36.0 g/dL Red Cell Distribution Width 13.8 11.8-14.3 % Platelet Count 283 140-450 10^3/uL Mean Platelet Volume 8.5 6.9-10.8 fL Neutrophils (%) (Auto) 67.0 37.0-80.0 % Lymphocytes (%) (Auto) 23.6 10.0-50.0 % Monocytes (%) (Auto) 7.3 0.0-12.0 % Eosinophils (%) (Auto) 1.9 0.0-7.0 % Basophils (%) (Auto) 0.2 0.0-2.0 % Neutrophils # (Auto) 4.8 1.6-8.6 10 ^3/uL Lymphocytes # (Auto) 1.7 0.4-5.4 10 ^3/uL Monocytes # (Auto) 0.5 0-1.3 10 ^3/uL Eosinophils # (Auto) 0.1 0-0.8 10 ^3/uL Basophils # (Auto) 0 0-0.2 10 ^3/uL Nucleated Red Blood Cells 0.1 % Sodium Level 143 136-145 mmol/L Potassium Level 4.2 3.5-5.1 mmol/L Chloride Level 112 H 98-107 mmol/L Carbon Dioxide Level 25 20-31 mmol/L Anion Gap 6 5-15 Blood Urea Nitrogen < 5 L 9-23 mg/dL Creatinine 0.67 0.550-1.02 mg/dL Glomerular Filtration Rate Calc 124 >90 mL/min BUN/Creatinine Ratio 7.5 L 10.0-20.0 Serum Glucose 82 74-106 mg/dL Calcium Level 9.8 8.7-10.4 mg/dL Magnesium Level 2.1 1.6-2.6 mg/dL Total Bilirubin 0.3 0.2-1.0 mg/dL Aspartate Amino Transferase (AST) 19 13-40 U/L Alanine Aminotransferase (ALT) 15 7-40 U/L Alkaline Phosphatase 68 46-116 U/L Total Protein 7.6 5.7-8.2 g/dL Albumin 5.0 H 3.2-4.8 g/dL Beta HCG, Quantitative 27.0 H 1.5-4.2 mIU/mL Current Medications Medications (Trade) Dose Ordered Sig/Cornel Route Start Time Stop Time Status Last Admin Lorazepam (Ativan Tablet) 0.5 mg ONCE ONCE PO 05/18/25 13:45 05/18/25 14:22 DC 05/18/25 14:56 Time of 1ST Reevaluation: 16:00 Reevaluation 1ST: Unchanged Time of 2ND Reevaluation: 17:00 Reevaluation 2ND: Unchanged Patient Education/Counseling: Diagnosis, Treatment, Prognosis, Need For Follow Up, Other Family Education/Counseling: No Family Present Comments Patient came to the hospital due to anxiety and vaginal bleeding. CBC and CMP ordered, and within normal limit Pelvic ultrasound performed, showed focal endometrial thickening 4, shows possible retained products of conception. Spoken with gynecology (Dr. Yepez) on phone, recommended misoprostol stool 800 mcg vaginal 1 time, Keflex and pain killer and outpatient follow up. For the anxiety patient is given Benadryl 25 mg during the night for 5 days. Patient was consulted regarding the plan and recommended outpatient follow up. Patient discharged home. SEPSIS Sepsis Screen Date sepsis recognized/suspect: May 18, 2025 Time Sepsis recognized/suspect: 1240 Recent Procedure: No On Antibiotic Therapy: No Respiratory Rate >20: No Heart Rate >90: No Temp<36 C (96.8 F) or >38.3 C: No SBP <90 or MAP <65 mmHG: No New Acute Mental Status Change: No Is the patient on CPAP, BIPAP,: No Physician Orders Pelvic (05/18/25 12:42) Vital Signs Date Time Temp Pulse Resp B/P (MAP) Pulse Ox O2 Delivery O2 Flow Rate FiO2 05/18/25 13:24 Room Air* 0 21 05/18/25 13:21 98.2 56 14 109/59 (76) 99 98.2 05/18/25 12:38 98.2 76 16 113/77 100 98.2 Laboratory Tests Test 05/18/25 13:17 White Blood Count 7.2 10^3/uL (4.4-10.8) Medications Medications Dose Ordered Sig/Cornel Route Start Time Stop Time Status Last Admin Dose Admin Lorazepam 0.5 mg ONCE ONCE PO 05/18/25 13:45 05/18/25 14:22 DC 05/18/25 14:56 Departure 1 Departure Time of Disposition: 17:30 Impression: Primary Impression: UTI (urinary tract infection) Additional Impressions: Miscarriage Anxiety Disposition: 01 HOME / SELF CARE / HOMELESS Condition: Fair e-Prescriptions Misoprostol (Cytotec) 200 Mcg Tab 4 TAB VG ONCE, #4 TAB Prov: AIDA CASTILLO RESDIENT 05/18/25 Cephalexin Monohydrate (Cephalexin) 500 Mg Tab 500 MG PO BID for 5 Days, #10 TAB Prov: AIDA CASTILLO RESDIENT 05/18/25 Ibuprofen Micronized (Ibuprofen) 400 Mg Tab 400 MG PO BID for 5 Days, #10 TAB Prov: AIDA CASTILLO RESDIENT 05/18/25 Critical Care Note Critical Care Time?: No Stability Stability form required: No Heart Score Heart Score: Heart Score Response (Comments) Value History N/A 0 EKG N/A 0 Age <45 0 Risk Factors No known risk factors 0 Troponin N/A 0 Total 0 AIDA CASTILLO RESDIENT May 18, 2025 16:59
[2025-05-18] MEDS ORDERED: CEPH500T PO (17:08)
[2025-05-18] MEDS ORDERED: IBUP1TAB4 PO (17:08)
[2025-05-18] MEDS ORDERED: MISO200T67 VG (17:08)
[2025-05-18] MEDS ORDERED: DIPH25CA51 PO ×2 (17:18→18:14)
[2025-05-18] MEDS ORDERED: LORA-655 PO ×2 (17:37→18:07)
== END 2025-05-18 18:06 | disposition home or self-care (01) ==
LOC: ER 12:36
DX: N39.0 Urinary tract infection, site not specified (principal); F41.9 Anxiety disorder, unspecified; F12.90 Cannabis use, unspecified, uncomplicated; F17.210 Nicotine dependence, cigarettes, uncomplicated; Z90.89 Acquired absence of other organs; Z79.899 Other long term (current) drug therapy; Z98.890 Other specified postprocedural states
CPT/HCPCS: 36415; 76856; 80053; 80307; 81001; 83735; 84702; 85025

== ENCOUNTER 2025-05-30 19:02 | Emergency (ER) | payer MEDICAID ==
[~2025-05-30] VITALS: Ht 157.5 cm; Wt 70.4 kg
[~2025-05-30 19:02] MED LIST changes: +CEPH500T PO; +DIPH25CA51 PO; +IBUP1TAB4 PO; +LORA-655 PO; +MISO200T67 VG
[2025-05-30 20:37] LABS: Hematocrit 31.0 % (36.0-46.0); Hemoglobin 10.4 g/dL (12.2-16.2); Mean Corpuscular Hemoglobin 29.1 pg (28.0-32.0); Mean Corpuscular Volume 86.7 fL (80.0-100.0); Nucleated Red Blood Cells % 0.0 %
--- NOTE | 2025-05-30 20:37 | ED.PDOC ---
ARCH SUPPORT MAKER HPI Comments 24y F who presents to the ED for chief complaint of vaginal bleeding. Pt states she has been having vaginal bleeding and states she recently had miscarriage at [facility]. Pt states and states since and specifically over the past 2 days, she has been having vaginal bleeding with associated passing of retained products of conception and associated blood clots. Pt states she has been having increased fatigue and associated dizziness but otherwise denies any other symptoms. Pt otherwise has stable vitals in the ED. Pt denies any other symptoms at this time. Chief Complaint: Vaginal Bleed Time Seen by MD: 20:32 Reviewed Notes: Medications, Allergies Allergies: Coded Allergies: NO KNOWN ALLERGIES (Unverified , 09/14/20) Home Meds Active Scripts Acetaminophen (Acetaminophen Extra Stren) 500 Mg Tab, 500 MG PO QID PRN for 10 Days, #40 TAB Prov:JACKY GODOY MD 05/30/25 Sulfamethoxazole W/Trimethopri (Bactrim Ds Tablet) 1 Tab Tb, 1 TAB PO BID for 7 Days, #14 TAB Prov:JACKY GODOY MD 05/30/25 Clindamycin Hcl (CLEOCIN) 150 Mg Cap, 1 CAP PO QID for 10 Days, #40 CAP Prov:JACKY GODOY MD 05/30/25 Misoprostol (Cytotec) 200 Mcg Tab, 4 TAB PO ONCE for 1 Day, #4 TAB Prov:JACKY GODOY MD 05/30/25 Diphenhydramine Hcl (BENADRYL CAPSULE) 25 Mg Cp, 25 MG PO HS for 5 Days, #10 CAP Prov:HEWADMAL,HEWAD RESDIENT 05/18/25 Misoprostol (Cytotec) 200 Mcg Tab, 4 TAB VG ONCE, #4 TAB Prov:HEWADMAL,HEWAD RESDIENT 05/18/25 Cephalexin Monohydrate (Cephalexin) 500 Mg Tab, 500 MG PO BID for 5 Days, #10 TAB Prov:HEWADMAL,HEWAD RESDIENT 05/18/25 Ibuprofen Micronized (Ibuprofen) 400 Mg Tab, 400 MG PO BID for 5 Days, #10 TAB Prov:HEWADMAL,HEWAD RESDIENT 05/18/25 Acetaminophen (Acetaminophen) 500 Mg Tab, 500 MG PO Q4HPRN, #30 TAB 0 Refills Prov:LEXI NOLASCO 05/10/25 Nitrofurantoin Monohydrate Mac (Macrobid) 100 Mg Cap, 100 MG PO BID for 7 Days, #14 CAP 0 Refills Prov:LEXI NOLASCO 05/10/25 Nitrofurantoin Monohydrate Mac (Macrobid) 100 Mg Cap, 100 MG PO BID for 5 Days, #10 CAP Prov:DENILSON HUGHES MD 03/27/25 Reported Medications Lorazepam (Ativan) 0.5 Mg Tab, 0.5 MG PO HS for 5 Days, #5 TAB 05/18/25 Lorazepam (Ativan) 0.5 Mg Tab, 0.5 MG PO HS for 5 Days, #5 TAB 05/18/25 Lorazepam (Ativan) 0.5 Mg Tab, 1 TAB PO HS for 5 Days, #5 TAB 05/18/25 Vit W/ Ferrous Fumara ( One Daily) Daily Tab, 1 TAB PO DAILY, #90 TAB 3 Refills 02/21/21 Information Source: Patient Mode of Arrival: Ambulatory Past Medical History PAST MEDICAL HISTORY: Anxiety Surgical History: Tonsillectomy FOREMAN/PILE DRIVING AND ERECTION History: Denies all FOREMAN/PILE DRIVING AND ERECTION Hx Family History Family History: Unknown Social History Smoker: Cigarettes, Less Than 1 Pack/Day Alcohol: Denies ETOH Use Drugs: Marijuana Lives In: Home All Other Systems: Reviewed and Negative (see HPI) Physical Exam General Appearance: Mild Distress HEENT: Normal ENT Inspection, PERRL/EOMI Neck: Full Range of Motion, Non-Tender, Normal, Normal Inspection Respiratory: Chest Non-Tender, Lungs Clear, No Accessory Muscle Use, No Respiratory Distress, Normal Breath Sounds Cardiovascular: No Edema, No JVD, No Murmur, No Gallop, Normal Peripheral Pulses, Regular Rate/Rhythm Breast Exam: Deferred Gastrointestinal: No Organomegaly, Non Tender, No Pulsatile Mass, Normal Bowel Sounds, Soft Genitalia: Deferred Pelvic: Deferred, Vaginal Bleeding Rectal: Deferred Extremities: No calf tenderness, Normal capillary refill, Normal inspection, Normal range of motion, Non-tender, No pedal edema Neurologic: Alert, icer air conditioning II-XII nml as Tested, No Motor Deficits, Normal Affect, Normal Mood, No Sensory Deficits Cerebellar Function: Normal Reflexes: Normal Skin: Dry, Normal Color, Warm Peripheral Pulses: 1+ carotid (R), 1+ carotid (L) Lymphatic: No Adenopathy Was a procedure done? Was a procedure done?: No Differential Diagnosis (FOREMAN/PILE DRIVING AND ERECTION) Vaginal Bleeding: - Incomplete, Blood Loss Anemia, Cervicitis, Dysmenorrhea, Hormonal, Menstrual Bleeding, Myomatous Uterus, PID, Trauma, UTI, Vaginitis, Other (retained products of conception) Mass / Lesion: PID, N/A Vaginal Discharge: X-Ray, Labs, Meds, VS Vital Signs Date Time Temp Pulse Resp B/P (MAP) Pulse Ox O2 Delivery O2 Flow Rate FiO2 05/30/25 22:40 98.1 101 16 106/62 (77) 98 98.1 05/30/25 19:04 99.8 110 22 112/79 99 99.8 Lab Test 05/30/25 20:13 05/30/25 20:03 Range/Units White Blood Count 10.7 4.4-10.8 10^3/uL Red Blood Count 3.57 L 4.0-5.20 10^6/uL Hemoglobin 10.4 L 12.2-16.2 g/dL Hematocrit 31.0 L 36.0-46.0 % Mean Corpuscular Volume 86.7 80.0-100.0 fL Mean Corpuscular Hemoglobin 29.1 28.0-32.0 pg Mean Corpuscular Hemoglobin Concent 33.6 32.0-36.0 g/dL Red Cell Distribution Width 14.0 11.8-14.3 % Platelet Count 340 140-450 10^3/uL Mean Platelet Volume 8.0 6.9-10.8 fL Neutrophils (%) (Auto) 68.0 37.0-80.0 % Lymphocytes (%) (Auto) 26.2 10.0-50.0 % Monocytes (%) (Auto) 4.4 0.0-12.0 % Eosinophils (%) (Auto) 1.3 0.0-7.0 % Basophils (%) (Auto) 0.1 0.0-2.0 % Neutrophils # (Auto) 7.2 1.6-8.6 10 ^3/uL Lymphocytes # (Auto) 2.8 0.4-5.4 10 ^3/uL Monocytes # (Auto) 0.5 0-1.3 10 ^3/uL Eosinophils # (Auto) 0.1 0-0.8 10 ^3/uL Basophils # (Auto) 0 0-0.2 10 ^3/uL Nucleated Red Blood Cells 0.0 % Prothrombin Time 10.1 9.3-11.8 sec Prothrombin Time INR 0.95 0.9-1.15 Activated Partial Thromboplast Time 27.6 24.5-34.5 SEC Sodium Level 144 136-145 mmol/L Potassium Level 3.7 3.5-5.1 mmol/L Chloride Level 110 H 98-107 mmol/L Carbon Dioxide Level 27 20-31 mmol/L Anion Gap 7 5-15 Blood Urea Nitrogen 6 L 9-23 mg/dL Creatinine 0.68 0.550-1.02 mg/dL Glomerular Filtration Rate Calc 123 >90 mL/min BUN/Creatinine Ratio 8.8 L 10.0-20.0 Serum Glucose 98 74-106 mg/dL Calcium Level 9.1 8.7-10.4 mg/dL Total Bilirubin 0.2 0.2-1.0 mg/dL Aspartate Amino Transferase (AST) 12 L 13-40 U/L Alanine Aminotransferase (ALT) 10 7-40 U/L Alkaline Phosphatase 59 46-116 U/L Total Protein 6.8 5.7-8.2 g/dL Albumin 4.6 3.2-4.8 g/dL Beta HCG, Quantitative 10.9 H 1.5-4.2 mIU/mL Urine Color Yellow Yellow Urine Clarity Clear Clear Urine pH 6.0 5.0-9.0 Urine Specific [place] 1.022 1.001-1.035 Urine Protein Trace H Negative Urine Ketones Trace Negative Urine Blood 3+ H Negative /uL Urine Nitrite Negative Negative Urine Bilirubin Negative Negative Urine Urobilinogen 2 H Negative mg/dL Urine Leukocyte Esterase 2+ Negative /uL Urine RBC 10 0 - 4 /hpf Urine Microscopic WBC 45 H 0-5 /HPF Urine Squamous Epithelial Cells Few <5 /hpf Urine Bacteria Few H None Seen /hpf Urine Mucus Few None Seen Urine Glucose Normal Normal mg/dL [address] [address] Ph: [phone] DIAGNOSTIC IMAGING Diagnostic Imaging Report : [id number] Signed PATIENT: DONALD CANTU ACCT: [id number] UNIT: [id number] : 2000 LOC: ER ROOM / BED: / AGE / SEX: 24 / F ADM STATUS: REG ER SERVICE 02 ORDERING PHYSICIAN: JACKY GODOY MD PROCEDURE(s): OB4US - OB ULTRASOUND COMP LESS 14WKS REASON: Retained products of conception ORDER NUMBER(s): [id number], ACCESSION NUMBER(s): [id number] OB ULTRASOUND <14 WEEKS: HISTORY: Retained products of conception TECHNIQUE: Multiple real-time grayscale sonographic images of the pelvis with duplex Doppler color flow, spectral and M-mode analysis. FINDINGS: The uterus measures 9.2 x 5.5 x 6.0 cm. The endometrium measures 14 mm with irregularity and slight vascularity. Right ovary was not visualized. Left ovary was not visualized. IMPRESSION: 1. Thickened endometrium with suggestion of slight vascularity, decreased in size compared to the prior study. Retained products of conception cannot be excluded in the appropriate clinical setting. ATED BY: RAJAN RODRIGUEZ MD DICTATED DATE/TIME: 05/30/252207 SIGNED BY: RAJAN RODRIGUEZ MD SIGNED DATE/TIME: 05/30/252207 CC: X-Ray, Labs, Meds, VS Comment Course in the emergency department eventful patient came because of vaginal blee ding fatigue dizziness fever she received Cytotec four tablets at one point but she still not feeling well she has also has fever and she continues to bleed With 68% neutrophils 10 and H&H 10.5 and 31 BNP normal Urine shows 3+ blood 2+ leukocyte and bacteria INR is 99.5 and Beta hCG 10.9 I consulted with the doctors and the patient will be going home we will repeat the Cytotec and some antibiotic CBC [id number] Time of 1ST Reevaluation: 21:00 Reevaluation 1ST: Unchanged Time of 2ND Reevaluation: 22:26 Reevaluation 2ND: Unchanged Consultation: PCP, railroad mechanic Patient Education/Counseling: Diagnosis, Treatment, Prognosis, Need For Follow Up Family Education/Counseling: Diagnosis, Treatment, Prognosis, Need For Follow Up Departure 1 Departure Time of Disposition: 22:26 Impression: Primary Impression: Retained products of conception Additional Impression: UTI (urinary tract infection) Qualified Codes: N30.01 - Acute cystitis with hematuria Disposition: 01 HOME / SELF CARE / HOMELESS Condition: Fair Additional Instructions: Push fluids take your medication as directed and follow up with an fish grader e-Prescriptions Acetaminophen (Acetaminophen Extra Stren) 500 Mg Tab 500 MG PO QID PRN for 10 Days, #40 TAB Prov: JACKY GODOY MD 05/30/25 Sulfamethoxazole W/Trimethopri (Bactrim Ds Tablet) 1 Tab Tb 1 TAB PO BID for 7 Days, #14 TAB Prov: JACKY GODOY MD 05/30/25 Clindamycin Hcl (CLEOCIN) 150 Mg Cap 1 CAP PO QID for 10 Days, #40 CAP Prov: JACKY GODOY MD 05/30/25 Misoprostol (Cytotec) 200 Mcg Tab 4 TAB PO ONCE for 1 Day, #4 TAB Prov: JACKY GODOY MD 05/30/25 Discharged With: Self Critical Care Note Critical Care Time?: No Stability Stability form required: No Heart Score Heart Score: Heart Score Response (Comments) Value History N/A 0 EKG N/A 0 Age <45 0 Risk Factors No known risk factors 0 Troponin N/A 0 Total 0 I personally scribed for JACKY GODOY MD ([email or web address]) on 05/30/25 at 20:37. Electronically submitted by Osiris Owens ([facility] [email or web address] I personally scribed for JACKY GODOY MD ([email or web address]) on 05/30/25 at 22:22. Electronically submitted by Osiris Owens ([facility] [place]). JACKY GODOY MD May 30, 2025 20:37
[2025-05-30 20:49] LABS: Alanine Aminotransferase 10 U/L (7-40); Albumin 4.6 g/dL (3.2-4.8); Alkaline Phosphatase 59 U/L (46-116); Anion Gap 7 (5-15); BUN/Creatinine Ratio 8.8 (10.0-20.0); Calcium 9.1 mg/dL (8.7-10.4); Carbon Dioxide 27 mmol/L (20-31); Glucose 98 mg/dL (74-106); Potassium 3.7 mmol/L (3.5-5.1); Sodium 144 mmol/L (136-145); Total Protein 6.8 g/dL (5.7-8.2)
[2025-05-30 20:52] LABS: INR 0.95 (0.9-1.15); Partial Thromboplastin Time 27.6 SEC (24.5-34.5); Prothrombin Time 10.1 sec (9.3-11.8)
[2025-05-30 20:57] LABS: Bilirubin, Total 0.2 mg/dL (0.2-1.0); Blood Urea Nitrogen 6 mg/dL (9-23); Chloride 110 mmol/L (98-107)
[2025-05-30 21:12] LABS: Urine Protein, UAD TRACE (Negative)
--- NOTE | 2025-05-30 22:11 | DVH ---
OB ULTRASOUND <14 WEEKS: HISTORY: Retained products of conception TECHNIQUE: Multiple real-time grayscale sonographic images of the pelvis with duplex Doppler color f low, spectral and M-mode analysis. FINDINGS: The uterus measures 9.2 x 5.5 x 6.0 cm. The endometrium measures 14 mm with irregularity and slight v ascularity. Right ovary was not visualized. Left ovary was not visualized. IMPRESSION: 1. Thickened endometrium with suggestion of slight vascularity, decreased in size compared to the lesvia or study. Retained products of conception cannot be excluded in the appropriate clinical setting.
[2025-05-30] MEDS ORDERED: MISO200T67 PO (22:31)
[2025-05-30] MEDS ORDERED: CLIN150C PO (22:31)
[2025-05-30] MEDS ORDERED: BACDST PO (22:31)
[2025-05-30] MEDS ORDERED: ACET-6 PO (22:38)
[2025-05-30 22:40] VITALS: BP 106/62; PULSE 101; RESP 16; TEMP 98.1; O2SAT 98
[2025-05-30] MEDS: SODIUM CHLORIDE 0.9% 500 ML IV ONE (23:17)
[2025-05-30] MEDS: cefTRIAXone W LIDOCAINE 1 GM IM IM ONE ×2 (23:17)
[2025-05-30] MEDS: cefTRIAXone SOD 1,000 MG VL ONE (23:17)
[2025-05-31] MEDS ORDERED: HYDR-4902 PO (22:16)
[2025-05-31] MEDS ORDERED: CEPH500C PO (22:16)
[2025-05-31] MEDS ORDERED: IBUP-1456 PO (22:16)
== END 2025-05-30 23:41 | disposition home or self-care (01) ==
LOC: ER 19:06
DX: O02.1 Missed abortion (principal); F41.9 Anxiety disorder, unspecified; F17.210 Nicotine dependence, cigarettes, uncomplicated; N39.0 Urinary tract infection, site not specified; Z90.89 Acquired absence of other organs; Z79.899 Other long term (current) drug therapy; Z98.890 Other specified postprocedural states
CPT/HCPCS: 36415; 76801; 76817; 80053; 81001; 84702; 85025; 85610; 85730; 86850; 86900; 86901; 96372; 99285; J0696

== ENCOUNTER 2025-05-31 14:32 | Inpatient (IN) | payer MEDICAID ==
[~2025-05-31] VITALS: Ht 157.5 cm; Wt 70.9 kg
[~2025-05-31 14:32] MED LIST changes: +ACET-6 PO; +BACDST PO; +CLIN150C PO; +MISO200T67 PO
--- NOTE | 2025-05-31 14:45 | ED.PDOC ---
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 Patient reports that she had a miscarriage in March, however, she has continued to have intermittent vaginal bleeding with clots present since then. Patient relays that she was seen on 05/18 for the same complaint and an US showed products of conception, so she was prescribed Cytotec. Patient states that she has not had a D&C performed yet, but despite using Cytotec, she has continued to bleed, so she came back to the ED last night. Patient notes that the US still showed products of conception, so she was again prescribed Cytotec. Patient reports that she has associated 3/10 lower abdominal pain and vaginal bleeding with clots present at this time. Patient denies any N/V, dysuria, or vaginal discharge. Time Seen by MD: 14:41 Reviewed Notes: Nurses Notes, Linux Solar[employer] Administrator Notes, Medications Allergies: Coded Allergies: NO KNOWN ALLERGIES (Unverified , 09/14/20) Home Meds Active Scripts Acetaminophen (Acetaminophen Extra Stren) 500 Mg Tab, 500 MG PO QID PRN for 10 Days, #40 TAB Prov:JACKY GODOY MD 05/30/25 Sulfamethoxazole W/Trimethopri (Bactrim Ds Tablet) 1 Tab Tb, 1 TAB PO BID for 7 Days, #14 TAB Prov:JACKY GODOY MD 05/30/25 Clindamycin Hcl (CLEOCIN) 150 Mg Cap, 1 CAP PO QID for 10 Days, #40 CAP Prov:JACKY GODOY MD 05/30/25 Misoprostol (Cytotec) 200 Mcg Tab, 4 TAB PO ONCE for 1 Day, #4 TAB Prov:JACKY GODOY MD 05/30/25 Diphenhydramine Hcl (BENADRYL CAPSULE) 25 Mg Cp, 25 MG PO HS for 5 Days, #10 CAP Prov:HEWADMAL,HEWAD RESDIENT 05/18/25 Misoprostol (Cytotec) 200 Mcg Tab, 4 TAB VG ONCE, #4 TAB Prov:HEWADMALHEWAD RESDIENT 05/18/25 Cephalexin Monohydrate (Cephalexin) 500 Mg Tab, 500 MG PO BID for 5 Days, #10 TAB Prov:HEWADMTIMOTHYHEWAD RESDIENT 05/18/25 Ibuprofen Micronized (Ibuprofen) 400 Mg Tab, 400 MG PO BID for 5 Days, #10 TAB Prov:AIDA CASTILLO RESDIENT 05/18/25 Acetaminophen (Acetaminophen) 500 Mg Tab, 500 MG PO Q4HPRN, #30 TAB 0 Refills Prov:LEXI NOLASCO 05/10/25 Nitrofurantoin Monohydrate Mac (Macrobid) 100 Mg Cap, 100 MG PO BID for 7 Days, #14 CAP 0 Refills Prov:LEXI NOLASCO 05/10/25 Nitrofurantoin Monohydrate Mac (Macrobid) 100 Mg Cap, 100 MG PO BID for 5 Days, #10 CAP Prov:DENILSON HUGHES MD 03/27/25 Reported Medications Lorazepam (Ativan) 0.5 Mg Tab, 0.5 MG PO HS for 5 Days, #5 TAB 05/18/25 Lorazepam (Ativan) 0.5 Mg Tab, 0.5 MG PO HS for 5 Days, #5 TAB 05/18/25 Lorazepam (Ativan) 0.5 Mg Tab, 1 TAB PO HS for 5 Days, #5 TAB 05/18/25 Vit W/ Ferrous Fumara ( One Daily) Daily Tab, 1 TAB PO DAILY, #90 TAB 3 Refills 02/21/21 Information Source: Patient, Emergency Med Personnel Mode of Arrival: EMS Timing: Months Prehospital treatment: None Severity: Moderate Bleeding Quality: Dark, Clotted, Products of Conception Onset Of Mass/Bleeding: Other (Miscarriage) Associated Signs and Symptoms: Vaginal Bleeding, Abdominal Pain Past Medical History PAST MEDICAL HISTORY: Anxiety Surgical History: Tonsillectomy 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 Hx Family History Family History: Unknown Social History Smoker: Cigarettes, Less Than 1 Pack/Day Alcohol: Denies ETOH Use Drugs: Marijuana Lives In: Home Constitutional: denies: chills, diaphoresis, fatigue, fever, malaise, sweats, weakness, others EENTM: denies: blurred vision, double vision, ear bleeding, ear discharge, ear drainage, ear pain, ear ringing, eye pain, eye redness, hearing loss, mouth pain, mouth swelling, nasal discharge, nose bleeding, nose congestion, nose pain, photophobia, tearing, throat pain, throat swelling, voice changes, others Respiratory: denies: cough, hemoptysis, orthopnea, SOB at rest, shortness of breath, SOB with excertion, stridor, wheezing, others Cardiovascular: denies: chest pain, dizzy spells, diaphoresis, Dyspnea on exertion, edema, irregular heart beat, left arm pain, lightheadedness, palpitations, PND, syncope, others Gastrointestinal: reports: abdominal pain; denies: abdomen distended, blood streaked bowels, constipated, diarrhea, dysphagia, difficulty swallowing, hematemesis, melena, nausea, poor appetite, poor fluid intake, rectal bleeding, rectal pain, vomiting, others Genitourinary: reports: abnormal vagina bleeding; denies: burning, dyspareunia, dysuria, flank pain, frequency, hematuria, incontinence, pain, , vagina discharge, urgency, others Neurological: denies: dizziness, fainting, headache, left sided numbness, left sided weakness, numbness, paresthesia, pre-existing deficit, right sided numbness, right sided weakness, seizure, speech problems, tingling, tremors, weakness, others Musculoskeletal: denies: back pain, gout, joint pain, joint swelling, muscle pain, muscle stiffness, neck pain, others Integumetry: denies: bruises, change in color, change in hair/nails, dryness, laceration, lesions, lumps, rash, wounds, others Allergic/Immunocompromised: denies: Difficulty Healing, Frequent Infections, Hives, Itching, others Hematologic/Lymphatic: denies: anemia, blood clots, easy bleeding, easy bruising, swollen glands, others Endocrine: denies: excessive hunger, excessive sweating, excessive thirst, excessive urination, flushing, intolerance to cold, intolerance to heat, unexplained weight gain, unexplained weight loss, others Psychiatric: denies: anxiety, bipolar disorder, depression, hopeless, panic disorder, schizophrenia, sleepless, suicidal, others All Other Systems: Reviewed and Negative Physical Exam General Appearance: Moderate Distress HEENT: Pale Conjuntivae (L), Pale Conjuntivae (R), Pharynx Normal, TMs Normal Neck: Full Range of Motion, Non-Tender, Normal, Normal Inspection Respiratory: Chest Non-Tender, Lungs Clear, No Accessory Muscle Use, No Respiratory Distress, Normal Breath Sounds Cardiovascular: No Edema, No JVD, No Murmur, No Gallop, Normal Peripheral Pulses, Regular Rate/Rhythm Breast Exam: Deferred Gastrointestinal: No Organomegaly, Non Tender, No Pulsatile Mass, Normal Bowel Sounds, Soft Genitalia: Deferred Pelvic: Deferred Rectal: Deferred Extremities: No calf tenderness, Normal capillary refill, No pedal edema Musculoskeletal : Apperance: Normal Neurologic: Alert, clinical practitioner II-XII nml as Tested, Motor Weakness, Normal Affect, Normal Mood, No Sensory Deficits Cerebellar Function: Normal Reflexes: Normal Skin: Dry, Normal Color, Warm Lymphatic: No Adenopathy Was a procedure done? Was a procedure done?: No Differential Diagnosis (ANDROID FRAMEWORK DEVELOPER) Vaginal Bleeding: - Complete, - Incomplete, Menorrhagia X-Ray, Labs, Meds, VS Vital Signs Date Time Temp Pulse Resp B/P (MAP) Pulse Ox O2 Delivery O2 Flow Rate FiO2 05/31/25 15:30 87 18 104/56 (72) 98 05/31/25 15:30 84 16 98 Room Air* 0 21 05/31/25 15:12 98.8 101 18 130/87 100 98.8 Lab Test 05/31/25 15:49 Range/Units White Blood Count 9.1 4.4-10.8 10^3/uL Red Blood Count 3.46 L 4.0-5.20 10^6/uL Hemoglobin 10.2 L 12.2-16.2 g/dL Hematocrit 30.3 L 36.0-46.0 % Mean Corpuscular Volume 87.7 80.0-100.0 fL Mean Corpuscular Hemoglobin 29.6 28.0-32.0 pg Mean Corpuscular Hemoglobin Concent 33.8 32.0-36.0 g/dL Red Cell Distribution Width 14.3 11.8-14.3 % Platelet Count 315 140-450 10^3/uL Mean Platelet Volume 8.1 6.9-10.8 fL Neutrophils (%) (Auto) 67.1 37.0-80.0 % Lymphocytes (%) (Auto) 26.6 10.0-50.0 % Monocytes (%) (Auto) 4.3 0.0-12.0 % Eosinophils (%) (Auto) 1.7 0.0-7.0 % Basophils (%) (Auto) 0.3 0.0-2.0 % Neutrophils # (Auto) 6.1 1.6-8.6 10 ^3/uL Lymphocytes # (Auto) 2.4 0.4-5.4 10 ^3/uL Monocytes # (Auto) 0.4 0-1.3 10 ^3/uL Eosinophils # (Auto) 0.2 0-0.8 10 ^3/uL Basophils # (Auto) 0 0-0.2 10 ^3/uL Nucleated Red Blood Cells 0.0 % Beta HCG, Quantitative 10.4 H 1.5-4.2 mIU/mL IV Hep-Lock is being established The patient was given normal saline as a bolus. We called Dr. Yepez in at this time we repeated the quantitative hCG and is 10.4. The patient's CBC shows anemia with a hemoglobin of 10.2 The patient is going to be admitted secondary to persistent bleeding. A pelvic ultrasound has been ordered. The patient will undergo a D&C most likely tomorrow. The patient will remain NPO after midnight We have discussed the findings with the patient The patient has remained somewhat hypotensive with a blood pressure now at 98/57 Time of 1ST Reevaluation: 17:10 Reevaluation 1ST: Unchanged Patient Education/Counseling: Diagnosis, Treatment, Prognosis Family Education/Counseling: No Family Present Departure 1 Departure Time of Disposition: 17:09 Impression: Primary Impression: Retained products of conception Additional Impressions: Hypotension Qualified Codes: I95.0 - Idiopathic hypotension Vaginal bleeding Disposition: ADMITTED INPATIENT Admit to: Med Surg Condition: Fair Critical Care Note Critical Care Time?: No Stability Stability form required: Yes Unstable for transfer: ED Physician Assesment (Clinical assesment) Heart Score Heart Score: Heart Score Response (Comments) Value History N/A 0 EKG N/A 0 Age N/A 0 Risk Factors N/A 0 Troponin N/A 0 Total 0 I personally scribed for DENILSON HUGHES MD ([email or web address]) on 05/31/25 at 14:45. Electronically submitted by Jose Dumont ([email or web address]). DENILSON HUGHES MD May 31, 2025 14:45
[2025-05-31 15:30] VITALS: PULSE 84; RESP 16; O2SAT 98
[2025-05-31 16:13] LABS: Hematocrit 30.3 % (36.0-46.0); Hemoglobin 10.2 g/dL (12.2-16.2); Mean Corpuscular Hemoglobin 29.6 pg (28.0-32.0); Mean Corpuscular Volume 87.7 fL (80.0-100.0); Nucleated Red Blood Cells % 0.0 %
[2025-05-31] MEDS: SODIUM CHLORIDE 0.9% 1,000 ML IV ONE (17:25)
--- NOTE | 2025-05-31 18:06 | DVH ---
Technique: Real-time ultrasound images through the pelvis using a transabdominal transducer. For bett er evaluation of the ovaries and endometrial stripe, an endovaginal transducer was used. Indication: Pain and bleeding Comparison: US OB ULTRASOUND COMP LESS 14WKS on DOS: 05/30/25 Findings: The uterus measures 8.6 cm. The endometrial stripe measures 24 mm. Endometrium is extremely heterog eneous in appearance. There is significantly decreased vascularity within the endometrial complex. T here is a heterogeneous lesion in the lower endometrial segment/ endocervical region measuring 4.2 x 3.2 cm with some internal vascularity Right ovary measures 3.6 x 2.8 x 1. cm. Normal flow on color doppler images. No focal masses are iden tified. Left ovary measures 1.9 x 1.6 x 1.8 cm. Normal flow on color doppler images. No focal masses are ale ntified. There is no significant free fluid in the pelvis. Impression: Abnormally thickened endometrial complex up to 24 mm with significantly increased vascularity which c ould be secondary to retained products conception, AV malformation. Correlate clinically. Overall t his appears more pronounced than on the previous examination. 4.2 x 3.2 cm heterogeneous lesion with internal vascularity in the lower endometrial/ endocervical re gion could represent passing products conception. Recommend boiler service technician consultation for further evaluation
[2025-05-31 18:21] LABS: Hematocrit 33.1 % (36.0-46.0); Hemoglobin 11.0 g/dL (12.2-16.2); Mean Corpuscular Hemoglobin 28.7 pg (28.0-32.0); Mean Corpuscular Volume 86.5 fL (80.0-100.0); Nucleated Red Blood Cells % 0.1 %
[2025-05-31 18:29] LABS: Potassium 3.7 mmol/L (3.5-5.1); Sodium 143 mmol/L (136-145)
[2025-05-31 18:30] LABS: Anion Gap 9 (5-15); Calcium 9.3 mg/dL (8.7-10.4); Carbon Dioxide 23 mmol/L (20-31); Chloride 111 mmol/L (98-107)
[2025-05-31 18:35] LABS: Glucose 97 mg/dL (74-106)
[2025-05-31 18:36] LABS: INR 0.97 (0.9-1.15); Partial Thromboplastin Time 28.3 SEC (24.5-34.5); Prothrombin Time 10.3 sec (9.3-11.8)
[2025-05-31 18:37] LABS: BUN/Creatinine Ratio 7.4 (10.0-20.0); Blood Urea Nitrogen < 5 mg/dL (9-23)
[2025-05-31] MEDS: ACETAMINOPHEN 325 MG TAB PO ONE (18:47)
[2025-05-31 19:30] VITALS: PULSE 74; RESP 15; O2SAT 99
[2025-05-31 19:38] LABS: Cannabinoid Screen, Urine Pos (NEGATIVE)
[2025-05-31] MEDS ORDERED: LACT. RINGERS/OXYTOCIN 20UNITS 1,000 ML IV ONE (20:00)
[2025-05-31 20:27] LABS: Amphetamine Screen, Urine Neg (NEGATIVE); Barbiturate Scree,Urine Neg (NEGATIVE); Benzodiazephine Screen, Urine Neg (NEGATIVE); Cocaine Screen, Urine Neg (NEGATIVE); Opiate Scree,Urine Neg (NEGATIVE); Phencyclidine Screen, Urine Neg (NEGATIVE)
[2025-05-31] MEDS: LACT. RINGERS/OXYTOCIN 20UNITS 1,000 ML IV ONE ×2 (20:27→23:15)
[2025-05-31 20:48] LABS: Hematocrit 26.9 % (36.0-46.0); Hemoglobin 9.1 g/dL (12.2-16.2); Mean Corpuscular Hemoglobin 29.4 pg (28.0-32.0); Mean Corpuscular Volume 86.9 fL (80.0-100.0); Nucleated Red Blood Cells % 0.0 %
[2025-05-31] MEDS: TRANEXAMIC ACID 1,000 MG in SODIUM CHL 0.9% 100 ML IV ONE (20:53)
[2025-05-31] MEDS ORDERED: ACETAMINOPHEN 325 MG TAB PO PRN (21:00)
[2025-05-31] MEDS: LACTATED RINGER'S 1,000 ML IV SCH (21:00)
[2025-05-31] MEDS: ONDANSETRON HCL 4 MG/2 ML VIAL IV PRN (21:31)
[2025-05-31] MEDS: ONDANSETRON HCL 4 MG/2 ML VIAL ONE (21:32)
[2025-05-31 21:48] VITALS: BP 107/69; PULSE 70; RESP 23; TEMP 98.1
[2025-05-31] MEDS ORDERED: MIDAZOLAM HCL 2MG/2ML 2ml VIAL (1mg/ml) ONE (22:09)
[2025-05-31] MEDS ORDERED: LIDOCAINE 1% INJ PF 5ML AMP ONE (22:09)
[2025-05-31] MEDS ORDERED: PROPOFOL 10 MG/ML 20 ML IV ONE (22:09)
[2025-05-31] MEDS ORDERED: fentaNYL CITRATE 100 MCG/2 ML VL ONE (22:09)
[2025-05-31] MEDS ORDERED: KETAMINE 50mg/ML 1ml syringe ONE (22:09)
[2025-05-31] MEDS ORDERED: SODIUM CHLORIDE LOCK 10 ML ONE (22:09)
[2025-05-31 22:15] VITALS: BP 101/57; PULSE 64; RESP 12; TEMP 98.5
[2025-05-31] MEDS ORDERED: HYDR-4902 PO ×2 (22:16)
[2025-05-31] MEDS ORDERED: IBUP-1456 PO ×2 (22:16)
[2025-05-31] MEDS ORDERED: CEPH500C PO ×2 (22:16)
--- NOTE | 2025-05-31 22:18 | DVHHP2 ---
History of Present Illness Reason for Visit: Retained products of conception History of Present Illness The patient is a 24-year-old female with past medical history of anxiety who presented to [facility] ED with complaint of vaginal bleeding. Patient reports that she had a miscarriage in March, however, she has continued to have intermittent vaginal bleeding with clots present since then. Patient states that she was seen on 05/18/25 for the same complaint and an US showed products of conception, so she was prescribed Cytotec. Patient states that she has not had a D&C performed yet, but despite using Cytotec, she has continued to bleed, so she came back to the ED last night. Patient was seen and evaluated in the ED, laboratory data shows WBC 10.4, hemoglobin 9.1, hematocrit 26.9, platelets 307, sodium 143, potassium 3.7, BUN 5, creatinine 0.68, glucose 97, calcium 9.3, hCG 10.4, blood pressure 105/72, heart rate 66, temperature 98.6 F, O2 saturation 99% on room air. Obstetric ultrasound revealing abnormally thickened endometrial complex up to 24 mm with significantly increased vascularity which could be secondary to retained products conception. Please see medication orders section in the computer. On my assessment, patient denied chest pain, no headache, no dizziness, no diaphoresis, no shortness of breaths, no nausea, no vomiting, no fever, no chills. Patient was admitted for further evaluation and medical management. Past Medical History Anxiety Past Surgical History Tonsillectomy Family History Reviewed, noncontributory to the management of this case. Past Social History The patient lives at home, smokes cigarettes less than 1 pack per day, denies alcohol use, uses marijuana. Review of Systems Constitutional: No: Fever, Chills, Sweats, Weakness, Malaise, Other Eyes: No: Pain, Vision change, Conjunctivae inflammation, Eyelid inflammation, Other, Redness ENT: No: Ear pain, Ear discharge, Nose pain, Nose discharge, Nose congestion, Mouth pain, Mouth swelling, Throat pain, Throat swelling, Other Respiratory: No: Cough, Dry, Shortness of breath, SOB with excertion, Wheezing, Hemoptysis, Pleuritic Pain, Sputum, Wheezing, Other Cardiovascular: No: Chest Pain, Palpitations, Orthopnea, Paroxysmal Noc. Dyspnea, Edema, Lt Headedness, Other Gastrointestinal: Abdominal Pain; No: Nausea, Vomiting, Diarrhea, Constipation, Melena, Hematochezia, Other Genitourinary: No Dysuria, No Frequency, No Incontinence, No Hematuria, No Retention; Other (Abdominal vaginal bleeding) Musculoskeletal: No: other, neck pain, shoulder pain, arm pain, back pain, hand pain, leg pain, foot pain Skin: No: Rash, Lesions, Jaundice, Bruising, Other Neurological: No: Weakness, Numbness, Incoordination, Change in speech, Confusion, Seizures, Other Allergies: Coded Allergies: NO KNOWN ALLERGIES (Unverified , 09/14/20) Medications Current Medications Medications Dose Ordered Sig/Cornel Route Start Time Stop Time Status Last Admin Dose Admin Lactated Ringer's 1,000 ml @ 75 mls/hr [id number] IV 05/31/25 21:00 Acetaminophen/ Hydrocodone Bitart 1 tab Q4HP PRN PO 05/31/25 21:00 Ondansetron HCl 4 mg Q4HP PRN IV 05/31/25 21:00 05/31/25 21:32 4 MG Acetaminophen 650 mg Q6HP PRN PO 05/31/25 21:00 Exam Vital Signs Vital Signs Date Time Temp Pulse Resp B/P (MAP) Pulse Ox O2 Delivery O2 Flow Rate FiO2 05/31/25 22:15 98.5 64 12 101/57 98.5 05/31/25 21:48 100 05/31/25 19:30 Room Air* 0 21 General Appearance: Alert, Oriented X3, Cooperative, No acute distress HEENT: Atraumatic, PERRLA, EOMI, Mucous membr. moist/pink Respiratory: Clear to auscultation, Normal air movement Cardiovascular: Regular rate, Normal S1, Normal S2, No murmurs Abdominal: Normal bowel sounds, Soft, No hepatospenomegaly, No masses, Other (Reports tenderness) Extremities: No clubbing, No cyanosis, No edema, Normal pulses, No tenderness/swelling Skin: No rashes, No breakdown, No significant lesion Neuro: Normal gait, Normal speech, Strength at 5/5 X4 ext, Normal tone, Sensation intact, Cranial nerves 3-12 NL, Reflexes 2+ Psych/Mental Status: Mental status NL, Mood NL Labs/Xrays Labs Test 05/31/25 20:25 05/31/25 18:00 05/31/25 17:57 05/31/25 15:49 Range/Units White Blood Count 10.4 4.4-10.8 10^3/uL Red Blood Count 3.09 L 4.0-5.20 10^6/uL Hemoglobin 9.1 #L 12.2-16.2 g/dL Hematocrit 26.9 #L 36.0-46.0 % Mean Corpuscular Volume 86.9 80.0-100.0 fL Mean Corpuscular Hemoglobin 29.4 28.0-32.0 pg Mean Corpuscular Hemoglobin Concent 33.9 32.0-36.0 g/dL Red Cell Distribution Width 13.9 11.8-14.3 % Platelet Count 307 140-450 10^3/uL Mean Platelet Volume 8.3 6.9-10.8 fL Neutrophils (%) (Auto) 64.3 37.0-80.0 % Lymphocytes (%) (Auto) 30.3 10.0-50.0 % Monocytes (%) (Auto) 3.8 0.0-12.0 % Eosinophils (%) (Auto) 1.2 0.0-7.0 % Basophils (%) (Auto) 0.4 0.0-2.0 % Neutrophils # (Auto) 6.7 1.6-8.6 10 ^3/uL Lymphocytes # (Auto) 3.1 0.4-5.4 10 ^3/uL Monocytes # (Auto) 0.4 0-1.3 10 ^3/uL Eosinophils # (Auto) 0.1 0-0.8 10 ^3/uL Basophils # (Auto) 0 0-0.2 10 ^3/uL Nucleated Red Blood Cells 0.0 % Urine Opiates Screen Neg NEGATIVE Urine Fentanyl Screen Neg NEGATIVE Urine Barbiturates Screen Neg NEGATIVE Urine Phencyclidine Screen Neg NEGATIVE Urine Amphetamines Screen Neg NEGATIVE Urine Benzodiazepines Screen Neg NEGATIVE Urine Cocaine Screen Neg NEGATIVE Urine Cannabinoids Screen Pos NEGATIVE Prothrombin Time 10.3 9.3-11.8 sec Prothrombin Time INR 0.97 0.9-1.15 Activated Partial Thromboplast Time 28.3 24.5-34.5 SEC Sodium Level 143 136-145 mmol/L Potassium Level 3.7 3.5-5.1 mmol/L Chloride Level 111 H 98-107 mmol/L Carbon Dioxide Level 23 20-31 mmol/L Anion Gap 9 5-15 Blood Urea Nitrogen < 5 L 9-23 mg/dL Creatinine 0.68 0.550-1.02 mg/dL Glomerular Filtration Rate Calc 123 >90 mL/min BUN/Creatinine Ratio 7.4 L 10.0-20.0 Serum Glucose 97 74-106 mg/dL Calcium Level 9.3 8.7-10.4 mg/dL Beta HCG, Quantitative 10.4 H 1.5-4.2 mIU/mL PATIENT: DONALD CANTU ACCT: [id number] UNIT: [id number] : 2000 LOC: ER ROOM / BED: / AGE / SEX: 24 / F ADM STATUS: REG ER SERVICE [id number] ORDERING PHYSICIAN: DENILSON HUGHES MD PROCEDURE(s): OB4US - OB ULTRASOUND COMP LESS 14WKS REASON: Pain and bleeding ORDER NUMBER(s): [id number], ACCESSION NUMBER(s): [id number] Technique: Real-time ultrasound images through the pelvis using a transabdominal transducer. For better evaluation of the ovaries and endometrial stripe, an endovaginal transducer was used. Indication: Pain and bleeding Comparison: US OB ULTRASOUND COMP LESS 14WKS on DOS: 05/30/25 Findings: The uterus measures 8.6 cm. The endometrial stripe measures 24 mm. Endometrium is extremely heterogeneous in appearance. There is significantly decreased vascularity within the endometrial complex. There is a heterogeneous lesion in the lower endometrial segment/endocervical region measuring 4.2 x 3.2 cm with some internal vascularity Right ovary measures 3.6 x 2.8 x 1. cm. Normal flow on color doppler images. No focal masses are identified. Left ovary measures 1.9 x 1.6 x 1.8 cm. Normal flow on color doppler images. No focal masses are identified. There is no significant free fluid in the pelvis. Impression: Abnormally thickened endometrial complex up to 24 mm with significantly increased vascularity which could be secondary to retained products conception, AV malformation. Correlate clinically. Overall this appears more pronounced than on the previous examination. 4.2 x 3.2 cm heterogeneous lesion with internal vascularity in the lower endometrial/ endocervical region could represent passing products conception. Recommend commercial lending assistant consultation for further evaluation SEPSIS Sepsis Screen Date sepsis recognized/suspect: May 31, 2025 Time Sepsis recognized/suspect: 1929 Recent Procedure: No On Antibiotic Therapy: No Respiratory Rate >20: No Heart Rate >90: No Temp<36 C (96.8 F) or >38.3 C: No SBP <90 or MAP <65 mmHG: No New Acute Mental Status Change: No Is the patient on CPAP, BIPAP,: No Physician Orders Type And Screen (05/31/25 17:05) Npo (Nothing By Mouth) Diet (06/01/25 Breakfast) Ob Ultrasound Comp Less 14wks (05/31/25 17:05) Obtain Consent For: (05/31/25 17:54) Obtain Consent For Anesthesia (05/31/25 17:54) Lact. Ringers/Oxytocin 20units (Oxytocin (05/31/25 20:00) Vital Signs .PER UNIT PROTOCOL (05/31/25 20:17) Administer Blood Products UD (05/31/25 20:17) * Parole Director Consultation (05/31/25 20:59) Lactated Ringer's (05/31/25 21:00) Allergies (05/31/25 20:59) Code Status (05/31/25 20:59) Oxygen Per Hour (05/31/25 20:59) Hydrocodone-Acet 5/325mg Tab ([place] 5/32 (05/31/25 21:00) Ondansetron Hcl (Zofran) (05/31/25 21:00) Complete Blood Count (06/01/25 04:00) Comprehensive Metabolic Panel (06/01/25 04:00) Condition: Serious (05/31/25 20:59) Acetaminophen Tablet (Tylenol Tablet) (05/31/25 21:00) Bedrest With Bathroom Privileg (05/31/25 20:59) Sequential Compression Device (05/31/25 ) Admit (05/31/25 22:17) Nitroglycerin Sublingual (Ntrostat Subli (05/31/25 22:30) Morphine Sulfate Injection (05/31/25 22:30) Stat Ekg For Chest Pain (05/31/25 22:17) Notify Md Of Changes From Base (05/31/25 22:17) Copyright Expert For 24 Hours (05/31/25 22:17) Emergency Dysrhythmia Protocol (05/31/25 22:17) Rhythm Strips Once Every Shift (05/31/25 22:17) Oxygen By Nasal Cannula (05/31/25 22:17) Vital Signs Date Time Temp Pulse Resp B/P (MAP) Pulse Ox O2 Delivery O2 Flow Rate FiO2 05/31/25 22:15 98.5 64 12 101/57 98.5 05/31/25 21:48 98.1 70 23 107/69 98.1 05/31/25 21:48 98.1 70 23 107/69 (82) 100 98.1 05/31/25 19:47 98.6 05/31/25 19:30 98.6 66 23 105/72 (83) 99 98.6 05/31/25 19:30 74 15 99 Room Air* 0 21 05/31/25 17:30 98.2 80 16 104/62 (76) 97 98.2 05/31/25 15:30 87 18 104/56 (72) 98 05/31/25 15:30 84 16 98 Room Air* 0 05/31/25 15:12 98.8 101 18 130/87 100 98.8 Laboratory Tests Test 05/31/25 15:49 05/31/25 17:57 05/31/25 20:25 White Blood Count 9.1 10^3/uL (4.4-10.8) 10.9 10^3/uL (4.4-10.8) H 10.4 10^3/uL (4.4-10.8) Medications Medications Dose Ordered Sig/Cornel Route Start Time Stop Time Status Last Admin Dose Admin Acetaminophen 650 mg ONCE ONCE PO 05/31/25 18:45 05/31/25 18:46 DC 05/31/25 18:47 650 MG Ondansetron HCl 4 mg Q4HP PRN IV 05/31/25 21:00 05/31/25 21:32 4 MG Oxytocin 1,000 ml @ 150 mls/hr Q6H40M ONCE IV 05/31/25 20:00 06/01/25 02:39 05/31/25 20:27 150 MLS/HR Sodium Chloride 1,000 ml @ 1,000 mls/hr Q1H ONCE IV 05/31/25 17:15 05/31/25 18:14 DC 05/31/25 17:25 1,000 MLS/HR Tranexamic Acid 1000 mg/Sodium Chloride 110 ml @ 300 mls/hr ONCE ONCE IV 05/31/25 20:30 05/31/25 20:51 DC 05/31/25 20:53 300 MLS/HR Assessment/Plan Assessment/Plan Retained products of conception Vaginal bleeding Hypotension Idiopathic hypotension Plan 1. Admit to the telemetry unit 2. Breathing treatment 3. Pain control management 4. Management of fluids and electrolytes 5. Consultation for surgery 6. Diagnostic tests obstetric ultrasound 7. DVT prophylaxis-on SCDs 8. Repeat labs CBC, CMP in a.m. 9. Continue with current medical management 10. Treatment plan discussed with patient and RN. Patient verbalized understanding. Plan discussed with: Patient, Other (RN) My Orders Orders - MICHAEL CHOU DNP Procedure Category Date Status Time * Parole Director Consultation CONS 05/31/25 Transmitted 20:59 Lactated Ringer's PHA 05/31/25 In Process 21:00 Allergies MARLA 05/31/25 In Process 20:59 Code Status CODE 05/31/25 Transmitted 20:59 Oxygen Per Hour RT 05/31/25 Transmitted 20:59 Hydrocodone-Acet PHA 05/31/25 In Process 5/325mg Tab ([place] 21:00 Ondansetron Hcl PHA 05/31/25 In Process (Zofran) 21:00 Complete Blood Count LAB 06/01/25 Verified 04:00 Comprehensive LAB 06/01/25 Verified Metabolic Panel 04:00 Condition: Serious MARLA 05/31/25 In Process 20:59 Acetaminophen Tablet PHA 05/31/25 In Process (Tylenol Tablet) 21:00 Bedrest With Bathroom MARLA 05/31/25 In Process Privileg 20:59 Sequential MARLA 05/31/25 In Process Compression Device Admit ADMIT 05/31/25 Verified 22:17 Nitroglycerin [facility] 05/31/25 Verified Sublingual (Ntrostat 22:30 Morphine Sulfate PHA 05/31/25 Verified Injection 22:30 Stat Ekg For Chest [facility] 05/31/25 Verified Pain 22:17 Notify Md Of Changes [facility] 05/31/25 Verified From Base 22:17 Copyright Expert For [facility] 05/31/25 Verified 24 Hours 22:17 Emergency Dysrhythmia [facility] 05/31/25 Verified Protocol 22:17 Rhythm Strips Once [facility] 05/31/25 Verified Every Shift 22:17 Oxygen By Nasal RT 05/31/25 Verified Cannula 22:17 Problem List: (1) Retained products of conception (2) Vaginal bleeding (3) Hypotension (4) Idiopathic hypotension Date of Service: May 31, 2025 Billing Provider: MICHAEL CHOU DNP Common Visit Codes: [id number] INP/OBS CARE (HIGH) MICHAEL CHOU DNP May 31, 2025 22:18
[2025-05-31] MEDS ORDERED: HYDROmorphone HCL 2 MG/ML VL/or syr IV PRN ×2 (22:30)
[2025-05-31] MEDS ORDERED: METOCLOPRAMIDE HCL 5MG/ml INJ 2ml VIAL IV PRN (22:30)
[2025-05-31] MEDS ORDERED: MORPHINE SULFATE 4 MG/ML SYR/VIAL IV PRN (22:30)
[2025-05-31] MEDS ORDERED: MORPHINE SULFATE INJ 2 MG/ml SYRG IV PRN ×2 (22:30)
[2025-05-31] MEDS ORDERED: NITROGLYCERIN 0.4 MG SL TAB SL PRN (22:30)
[2025-05-31] MEDS: KETOROLAC TROMETH 30 MG/ML 1ML VIAL IV ONE (22:30)
--- NOTE | 2025-05-31 22:33 | DVHHP ---
ADMIT DATE: 05/31/2025 CHIEF COMPLAINT: Heavy vaginal bleeding. HISTORY OF PRESENT ILLNESS: This is a 24-year-old female brought into the Emergency Room by ambulance with complaint of vaginal bleeding. The patient states she had miscarriage in March; however, continues to have intermittent vaginal bleeding with clots. She was seen on 05/18. Sono showed products of conception. She took Cytotec and was continued with vaginal bleeding. She is requesting having a D and C. Ultrasound reveals vascularity consistent with products of conception. Beta hCG was 10. The patient started bleeding heavy. Subsequently was given TXA and Pitocin despite which she continued bleeding. Subsequently, the patient is taken for D and C. PAST MEDICAL HISTORY: Anxiety, ADHD, post traumatic syndrome. PAST SURGICAL HISTORY: Tonsillectomy. SOCIAL HISTORY: Heavy smoker, marijuana use. ALLERGIES: No known drug allergies. REVIEW OF SYSTEMS: Consistent with HPI. PHYSICAL EXAMINATION: VITAL SIGNS: Stable. Afebrile. HEENT: Pale conjunctivae. CARDIOVASCULAR: Regular rate and rhythm. LUNGS: Clear to auscultation. BREASTS: Symmetrical, no masses. ABDOMEN: Soft. PELVIC: Cervix 1 cm, uterus, 8 to 9 weeks size. Adnexa, nonpalpable. EXTREMITIES: No clubbing, cyanosis or edema. IMPRESSION: Incomplete bleeding. PLAN: D and C suction curettage. Informed consent obtained. Risks and complications of surgery including infection, perforation of the uterus, bleeding, discussed with the patient. Options reviewed. All questions answered to the satisfaction of the patient. She wishes to proceed with planned procedure. DO GENOVEVA Chilel/KEMAR TID: [id number] RECEIPT: [id number]
--- NOTE | 2025-05-31 23:10 | DVHOP2 ---
Operative Report DATE OF OPERATION: 05/31/25 PREOPERATIVE DIAGNOSES: Incomplete POSTOPERATIVE DIAGNOSES: Incomplete SURGEON: Josue Yepez D.O. ANESTHESIOLOGIST: laila TYPE OF ANESTHESIA : MAC CONSENT: The patient was informed of the risks and benefits of the procedure. The patient was informed of the risks and benefits of the procedure. These include but are not limited to , complications of anesthesia, postoperative infection, incomplete relief of symptoms, recurrence of symptoms, damage to blood vessels, nerves and tendons, deep venous thrombosis, pulmonary embolism and possible need for repeat surgery in the future. FINDINGS: Cervix is 1 cm and uterus 9 weeks' size. Adnexa nonpalpable. TISSUE TO PATHOLOGY: POC. PROCEDURES: Dilatation and curettage and suction curettage. PROCEDURE IN DETAIL: The patient was taken to the operating room where she was placed under MAC anesthesia. The patient was then prepped and draped in the usual sterile manner in dorsal lithotomy position. Bladder was emptied using straight catheter. Examination under anesthesia revealed the above findings. A weighted speculum was placed in the vagina. Anterior lip of the cervix was grasped using a single-tooth tenaculum. Cervix was dilated. Uterus was sounded to 9 cm. Products of conception were evacuated using suction curette, size #7, sharp curetting of endometrial cavity was done. The patient tolerated the procedure well. All the instruments were removed from vagina and cervix. The patient was taken to the recovery room in a stable condition. ESTIMATED BLOOD LOSS: 200 mL Visit Coding OBGYN Date of Service: May 31, 2025 Billing Provider: JOSUE YEPEZ DO CLAIMS REPRESENTATIVE Common Visit Codes: 72219-[id number] INP/OBS CARE (HIGH) CLAIMS REPRESENTATIVE Procedure Codes: 51900-YN OF INCOMP AB,ANY TRIMESTER JOSUE YEPEZ DO May 31, 2025 23:10
--- NOTE | 2025-05-31 23:11 | POSTOP ---
Post-Operative Note Post-Operative Note Preop Diagnosis incompelet ab Postop Diagnosis: same Operation performed d and c,suction currettage Specimen poc Anesthesia: Mac Anesthesiologist: laila Blood Loss(fluid mgmt) 200ml Surgeon Josue Yepez Implant na Complications & Mgmt none Date 05/31/25 Time 23:10 Visit Coding OBGYN Date of Service: May 31, 2025 Billing Provider: JOSUE YEPEZ DO PHYSICIAN Common Visit Codes: [id number] INP/OBS CARE (HIGH) PHYSICIAN Procedure Codes: 04571-YG OF INCOMP AB,ANY TRIMESTER JOSUE YEPEZ DO May 31, 2025 23:11
[2025-05-31] MEDS ORDERED: ONDANSETRON HCL 4 MG/2 ML VIAL IV PRN (23:15)
[2025-05-31 23:16] VITALS: RESP 13; O2SAT 98
[2025-05-31] MEDS ORDERED: OXYTOCIN 10UNIT/ML 1ML VIAL ONE (23:17)
[2025-06-01] VITALS (7 sets, daily range): BP systolic 89–109; BP diastolic 51–60; PULSE 60–91; RESP 14–18; TEMP 97.5–97.8; O2SAT 96–100
[2025-06-01] MEDS: HYDROcodone-ACET 5/325MG TAB PO PRN (01:03)
[2025-06-01] MEDS: ceFAZolin 1GM/50ML 50 ML IV SCH (05:26)
[2025-06-01 05:35] LABS: Albumin 3.5 g/dL (3.2-4.8); Anion Gap 7 (5-15); Carbon Dioxide 23 mmol/L (20-31); Glucose 94 mg/dL (74-106); Potassium 3.6 mmol/L (3.5-5.1); Sodium 142 mmol/L (136-145)
[2025-06-01 05:36] LABS: Bilirubin, Total 0.3 mg/dL (0.2-1.0)
[2025-06-01 05:37] LABS: Hematocrit 27.2 % (36.0-46.0); Hemoglobin 9.2 g/dL (12.2-16.2); Mean Corpuscular Hemoglobin 29.2 pg (28.0-32.0); Mean Corpuscular Volume 86.2 fL (80.0-100.0); Nucleated Red Blood Cells % 0.0 %
[2025-06-01 05:40] LABS: Alanine Aminotransferase < 9 U/L (7-40); Alkaline Phosphatase 43 U/L (46-116); BUN/Creatinine Ratio 9.1 (10.0-20.0); Blood Urea Nitrogen < 5 mg/dL (9-23); Calcium 8.3 mg/dL (8.7-10.4); Chloride 112 mmol/L (98-107); Total Protein 5.4 g/dL (5.7-8.2)
--- NOTE | 2025-06-01 11:32 | DVHPN2 ---
Chief Complaints Patient reports: No new complaints, Feels better Nursing reports: No new complaints Objective Vitals Vital Signs Date Time Temp Pulse Resp B/P (MAP) Pulse Ox O2 Delivery O2 Flow Rate FiO2 06/01/25 08:30 97.5 91 18 89/54 (66) 96 97.5 06/01/25 07:38 Room Air* 0 21 Medications Current Medications Medications (Trade) Dose Ordered Sig/Cornel Route PRN Reason Start Time Stop Time Status Last Admin Acetaminophen (Tylenol Tablet) 650 mg Q6HP PRN PO PAIN SCALE 1-3 OR TEMP>100.4 05/31/25 21:00 Acetaminophen/ Hydrocodone Bitart ([place] 5/325MG Tab) 1 tab Q4HP PRN PO MODERATE PAIN (4-6 PAIN SCALE) 05/31/25 21:00 06/01/25 05:27 Cefazolin Sodium 50 ml @ 100 mls/hr Q8HR IV 06/01/25 06:00 06/01/25 05:26 Lactated Ringer's 1,000 ml @ 75 mls/hr [id number] IV 05/31/25 21:00 Morphine Sulfate 2 mg Q30M PRN IV FOR CHEST PAIN 05/31/25 22:30 Nitroglycerin (Ntrostat Sublingual) 0.4 mg Q5MINP PRN SL FOR CHEST PAIN 05/31/25 22:30 Ondansetron HCl (Zofran) 4 mg Q4HP PRN IV NAUSEA / VOMITING 05/31/25 21:00 05/31/25 21:32 Ondansetron HCl (Zofran) 4 mg Q4HPRN PRN IV NAUSEA / VOMITING 05/31/25 23:15 Lungs: Normal Cardiovascular: Normal Abdominal: Soft Extremities: Normal Studies Laboratory Tests 06/01/25 04:19 Test 06/01/25 04:19 Range/Units Serum Glucose 94 74-106 mg/dL Ass/Plan Assessment s/p d and c,suction Plan dc home fu in 2wks Visit Coding OBGYN Date of Service: Jun 01, 2025 Billing Provider: JOSUE SR DO HUMAN RESOURCES PSYCHOLOGIST Common Visit Codes: [id number] INP/OBS CARE (HIGH) HUMAN RESOURCES PSYCHOLOGIST Procedure Codes: 91415-WU OF INCOMP AB,ANY TRIMESTER JOSUE SR DO Jun 01, 2025 11:32
--- NOTE | 2025-06-01 11:35 | DVHDS2 ---
Physician Discharge Progress N Final Diagnosis: s/p d and c,suction Operations or Procedures: Operations or Procedures d and c,suction currettage Condition on Discharge: Good Disposition: Home Discharge Instructions: Diet: Regular Activity: No Restrictions, As Tolerated Medications: zofran Follow Up Care: Specialist: 1w Discharge Statement: "Patient was advised to return to the ER or call 911 if any headaches, dizziness, shortness of breath, chest pain, abdominal pain, bleeding, fevers, or worsening of medical condition. Patient was counseled about treatment plan, medications, possible side effects, patientverbalized understanding. All questions were answered to the best of my ability. This discharge took greater then 30 minutes in planning, reviewing documentation, counseling the patient, and discussing with other team members." Visit Coding OBGYN Date of Service: Jun 01, 2025 Billing Provider: JOSUE SR DO INTERVENTIONAL SALE CONSULTANT Common Visit Codes: 77838-[id number] OBS CARE (HIGH), 17409-OWX/OBS DISCH DAY >30MIN INTERVENTIONAL SALE CONSULTANT Procedure Codes: 30531-TG OF INCOMP AB,ANY TRIMESTER JOSUE SR DO Jun 01, 2025 11:35
--- NOTE | 2025-06-01 11:42 | DVHDS2 ---
Discharge Summary Date of Admission May 31, 2025 at 22:17 Date of Discharge: Jun 01, 2025 Admitting Diagnosis Incomplete Labs/Diagnostic Data: Laboratory Results Test 06/01/25 04:19 05/31/25 18:00 05/31/25 17:57 05/31/25 15:49 White Blood Count 8.0 10^3/uL (4.4-10.8) Red Blood Count 3.15 10^6/uL (4.0-5.20) Hemoglobin 9.2 g/dL (12.2-16.2) Hematocrit 27.2 % (36.0-46.0) Mean Corpuscular Volume 86.2 fL (80.0-100.0) Mean Corpuscular Hemoglobin 29.2 pg (28.0-32.0) Mean Corpuscular Hemoglobin Concent 33.8 g/dL (32.0-36.0) Red Cell Distribution Width 14.8 % (11.8-14.3) Platelet Count 253 10^3/uL (140-450) Mean Platelet Volume 8.6 fL (6.9-10.8) Neutrophils (%) (Auto) 60.2 % (37.0-80.0) Lymphocytes (%) (Auto) 34.0 % (10.0-50.0) Monocytes (%) (Auto) 4.6 % (0.0-12.0) Eosinophils (%) (Auto) 0.9 % (0.0-7.0) Basophils (%) (Auto) 0.3 % (0.0-2.0) Neutrophils # (Auto) 4.8 10 ^3/uL (1.6-8.6) Lymphocytes # (Auto) 2.7 10 ^3/uL (0.4-5.4) Monocytes # (Auto) 0.4 10 ^3/uL (0-1.3) Eosinophils # (Auto) 0.1 10 ^3/uL (0-0.8) Basophils # (Auto) 0 10 ^3/uL (0-0.2) Nucleated Red Blood Cells 0.0 % Sodium Level 142 mmol/L (136-145) Potassium Level 3.6 mmol/L (3.5-5.1) Chloride Level 112 mmol/L (98-107) Carbon Dioxide Level 23 mmol/L (20-31) Anion Gap 7 (5-15) Blood Urea Nitrogen < 5 mg/dL (9-23) Creatinine 0.55 mg/dL (0.550-1.02) Glomerular Filtration Rate Calc 130 mL/min (>90) BUN/Creatinine Ratio 9.1 (10.0-20.0) Serum Glucose 94 mg/dL (74-106) Calcium Level 8.3 mg/dL (8.7-10.4) Total Bilirubin 0.3 mg/dL (0.2-1.0) Aspartate Amino Transferase (AST) 16 U/L (13-40) Alanine Aminotransferase (ALT) < 9 U/L (7-40) Alkaline Phosphatase 43 U/L (46-116) Total Protein 5.4 g/dL (5.7-8.2) Albumin 3.5 g/dL (3.2-4.8) Urine Opiates Screen Neg (NEGATIVE) Urine Fentanyl Screen Neg (NEGATIVE) Urine Barbiturates Screen Neg (NEGATIVE) Urine Phencyclidine Screen Neg (NEGATIVE) Urine Amphetamines Screen Neg (NEGATIVE) Urine Benzodiazepines Screen Neg (NEGATIVE) Urine Cocaine Screen Neg (NEGATIVE) Urine Cannabinoids Screen Pos (NEGATIVE) Prothrombin Time 10.3 sec (9.3-11.8) Prothrombin Time INR 0.97 (0.9-1.15) Activated Partial Thromboplast Time 28.3 SEC (24.5-34.5) Beta HCG, Quantitative 10.4 mIU/mL (1.5-4.2) Other Laboratory Tests 06/01/25 04:19 Brief Hx & Hospital Course: The patient is a 24-year-old female with past medical history of anxiety who presented to [facility] ED with complaint of vaginal bleeding. Patient reports that she had a miscarriage in March, however, she has continued to have intermittent vaginal bleeding with clots present since then. Patient states that she was seen on 05/18/25 for the same complaint and an US showed products of conception, so she was prescribed Cytotec. Patient states that she has not had a D&C performed yet, but despite using Cytotec, she has continued to bleed, so she came back to the ED last night. Patient was seen and evaluated in the ED, laboratory data shows WBC 10.4, hemoglobin 9.1, hematocrit 26.9, platelets 307, sodium 143, potassium 3.7, BUN 5, creatinine 0.68, glucose 97, calcium 9.3, hCG 10.4, blood pressure 105/72, heart rate 66, temperature 98.6 F, O2 saturation 99% on room air. Obstetric ultrasound revealing abnormally thickened endometrial complex up to 24 mm with significantly increased vascularity which could be secondary to retained products conception. Patient underwent surgery, tolerated procedure well. Will be discharged home. Operations or Procedures Operative Report DATE OF OPERATION: 05/31/25 PREOPERATIVE DIAGNOSES: Incomplete POSTOPERATIVE DIAGNOSES: Incomplete SURGEON: Sandhya Yepez D.O. ANESTHESIOLOGIST: laila TYPE OF ANESTHESIA : MAC CONSENT: The patient was informed of the risks and benefits of the procedure. The patient was informed of the risks and benefits of the procedure. These include but are not limited to , complications of anesthesia, postoperative infection, incomplete relief of symptoms, recurrence of symptoms, damage to blood vessels, nerves and tendons, deep venous thrombosis, pulmonary embolism and possible need for repeat surgery in the future. FINDINGS: Cervix is 1 cm and uterus 9 weeks' size. Adnexa nonpalpable. TISSUE TO PATHOLOGY: POC. PROCEDURES: Dilatation and curettage and suction curettage. PROCEDURE IN DETAIL: The patient was taken to the operating room where she was placed under MAC anesthesia. The patient was then prepped and draped in the usual sterile manner in dorsal lithotomy position. Bladder was emptied using straight catheter. Examination under anesthesia revealed the above findings. A weighted speculum was placed in the vagina. Anterior lip of the cervix was grasped using a single-tooth tenaculum. Cervix was dilated. Uterus was sounded to 9 cm. Products of conception were evacuated using suction curette, size #7, sharp curetting of endometrial cavity was done. The patient tolerated the procedure well. All the instruments were removed from vagina and cervix. The patient was taken to the recovery room in a stable condition. ESTIMATED BLOOD LOSS: 200 mL Condition at Discharge: Poor Final Diagnosis/Problems List Incomplete Vaginal bleeding Hypotension Idiopathic hypotension Discharge Disposition: Home Discharge Instruct/Medications Diet: Regular Activity: No Restrictions, As Tolerated Follow Up/Referral: 2wks OB clinic DC clinic Medications: see med recc Scheduled Acetaminophen (Acetaminophen), 500 MG PO Q4HPRN Cephalexin Monohydrate (Cephalexin), 500 MG PO BID Cephalexin Monohydrate (Cephalexin), 500 MG PO QID Clindamycin Hcl (Cleocin), 1 CAP PO QID Diphenhydramine Hcl (Benadryl Capsule), 25 MG PO HS Ibuprofen Micronized (Ibuprofen), 400 MG PO BID Lorazepam (Ativan), 1 TAB PO HS, (Reported) Lorazepam (Ativan), 0.5 MG PO HS, (Reported) Lorazepam (Ativan), 0.5 MG PO HS, (Reported) Misoprostol (Cytotec), 4 TAB VG ONCE Misoprostol (Cytotec), 4 TAB PO ONCE Nitrofurantoin Monohydrate Mac (Macrobid), 100 MG PO BID Nitrofurantoin Monohydrate Mac (Macrobid), 100 MG PO BID Vit W/ Ferrous Fumara ( One Daily), 1 TAB PO DAILY, (Reported) Sulfamethoxazole W/Trimethopri (Bactrim Ds Tablet), 1 TAB PO BID Scheduled PRN Acetaminophen (Acetaminophen Extra Stren), 500 MG PO QID PRN Hydrocodone-Acetaminophen (Hydrocodone Bitartrate/AC 5-325 mg), 1 TAB PO Q6HPRN PRN Ibuprofen (Ibuprofen), 800 MG PO TID PRN Discharge Statement: "Patient was advised to return to the ER or call 911 if any headaches, dizziness, shortness of breath, chest pain, abdominal pain, bleeding, fevers, or worsening of medical condition. Patient was counseled about treatment plan, medications, possible side effects, patientverbalized understanding. All questions were answered to the best of my ability. This discharge took greater then 30 minutes in planning, reviewing documentation, counseling the patient, and discussing with other team members." ASSESSMENT ASSESSMENT Assessment s/p d and c,suction Date of Service: Jun 01, 2025 Billing Provider: SEAN CLEMONS MD Common Visit Codes: 05505-HXP/OBS DISCH DAY >30min SEAN CLEMONS MD Jun 01, 2025 11:42
[2025-06-02] MEDS ORDERED: CIPR-173 PO (22:10)
[2025-06-02] MEDS ORDERED: HYDR-4902 PO (22:10)
[2025-06-02] MEDS ORDERED: PERCOT PO (23:10)
== END 2025-06-01 13:10 | disposition home or self-care (01) | DRG 543 ==
LOC: EDBD 14:32 → ER 14:32 → OVERFLOW 22:17 → TELE-CENTR 06-01 00:14
PROVIDERS: ADMIT Internal Medicine; ATTEND Internal Medicine
PROC: 30233N1 Transfusion of Nonautologous Red Blood Cells into Peripheral Vein, Percutaneous Approach (ICD-10-PCS; 2025-05-31)
PROC: 10D17ZZ Extraction of Products of Conception, Retained, Via Natural or Artificial Opening (ICD-10-PCS; principal; 2025-05-31 22:45)
DX: O03.4 Incomplete spontaneous abortion without complication (principal); R71.0 Precipitous drop in hematocrit; F17.210 Nicotine dependence, cigarettes, uncomplicated; I95.0 Idiopathic hypotension; F41.9 Anxiety disorder, unspecified; F90.9 Attention-deficit hyperactivity disorder, unspecified type; Z79.899 Other long term (current) drug therapy
CPT/HCPCS: 36415; 36430; 76801; 76817; 80048; 80053; 80307; 84702; 85025; 85610; 85730; 86850; 86900; 86901; 86920; 96365; 96375; G0378; J1885; J2250; J2405; J2704

== ENCOUNTER 2025-06-02 18:22 | Emergency (ER) | payer MEDICAID ==
[~2025-06-02] VITALS: Ht 157.5 cm; Wt 68.2 kg
[~2025-06-02 18:22] MED LIST changes: +CEPH500C PO; +HYDR-4902 PO; +IBUP-1456 PO
[2025-06-02 18:58] LABS: Hematocrit 28.4 % (36.0-46.0); Hemoglobin 9.7 g/dL (12.2-16.2); Mean Corpuscular Hemoglobin 29.3 pg (28.0-32.0); Mean Corpuscular Volume 86.0 fL (80.0-100.0); Nucleated Red Blood Cells % 0.1 %
[2025-06-02 19:05] LABS: Potassium 3.8 mmol/L (3.5-5.1); Sodium 143 mmol/L (136-145)
[2025-06-02 19:06] LABS: Anion Gap 9 (5-15); Carbon Dioxide 23 mmol/L (20-31)
[2025-06-02 19:07] LABS: Calcium 9.0 mg/dL (8.7-10.4)
[2025-06-02 19:11] LABS: Glucose 82 mg/dL (74-106)
[2025-06-02 19:12] LABS: BUN/Creatinine Ratio 8.8 (10.0-20.0); Blood Urea Nitrogen 7 mg/dL (9-23); Chloride 111 mmol/L (98-107)
--- NOTE | 2025-06-02 19:12 | ED.PDOC ---
DONOR SERVICES SPECIALIST HPI Comments This is a 24 year old female who presents to the ED via EMS with a chief complaint of headache, lower back pain, and pelvic pressure for X1 day. Patient states she was discharged from [facility] yesterday after having a Dilation and Curettage procedure done X2 days ago via Dr. Yepez. Patient reports syjmptoms onset since. Patient presents to the ED A&Ox4, moderately photophobic. Patient Photophobic Chief Complaint: Headache Allergies: Coded Allergies: NO KNOWN ALLERGIES (Unverified , 09/14/20) Home Meds Active Scripts Ibuprofen (Ibuprofen) 800 Mg Tab, 800 MG PO TID PRN for 4 Days, #21 TAB Prov:REMBERTOJOSUE DO 05/31/25 Hydrocodone-Acetaminophen (Hydrocodone Bitartrate/AC 5-325 mg) 1 Tab Tab, 1 TAB PO Q6HPRN PRN for 3 Days, #12 TAB Prov:REMBERTOJOSUE DO 05/31/25 Cephalexin Monohydrate (Cephalexin) 500 Mg Cap, 500 MG PO QID for 7 Days, CAP Prov:ABEBE YEPEZAM 05/31/25 Acetaminophen (Acetaminophen Extra Stren) 500 Mg Tab, 500 MG PO QID PRN for 10 Days, #40 TAB Prov:JACKY GODOY MD 05/30/25 Sulfamethoxazole W/Trimethopri (Bactrim Ds Tablet) 1 Tab Tb, 1 TAB PO BID for 7 Days, #14 TAB Prov:JACKY GODOY MD 05/30/25 Clindamycin Hcl (CLEOCIN) 150 Mg Cap, 1 CAP PO QID for 10 Days, #40 CAP Prov:JACKY GODOY MD 05/30/25 Misoprostol (Cytotec) 200 Mcg Tab, 4 TAB PO ONCE for 1 Day, #4 TAB Prov:JACKY GODOY MD 05/30/25 Diphenhydramine Hcl (BENADRYL CAPSULE) 25 Mg Cp, 25 MG PO HS for 5 Days, #10 CAP Prov:HEWADMALEXIS AGUIRREWAD RESDIENT 05/18/25 Misoprostol (Cytotec) 200 Mcg Tab, 4 TAB VG ONCE, #4 TAB Prov:AIDA CASTILLO RESDIENT 05/18/25 Cephalexin Monohydrate (Cephalexin) 500 Mg Tab, 500 MG PO BID for 5 Days, #10 TAB Prov:AIDA CASTILLO RESDIENT 05/18/25 Ibuprofen Micronized (Ibuprofen) 400 Mg Tab, 400 MG PO BID for 5 Days, #10 TAB Prov:AIAD CASTILLO RESDIENT 05/18/25 Acetaminophen (Acetaminophen) 500 Mg Tab, 500 MG PO Q4HPRN, #30 TAB 0 Refills Prov:LEXI NOLASCO 05/10/25 Nitrofurantoin Monohydrate Mac (Macrobid) 100 Mg Cap, 100 MG PO BID for 7 Days, #14 CAP 0 Refills Prov:LEXI NOLASCO 05/10/25 Nitrofurantoin Monohydrate Mac (Macrobid) 100 Mg Cap, 100 MG PO BID for 5 Days, #10 CAP Prov:DENILSON HUGHES MD 03/27/25 Reported Medications Lorazepam (Ativan) 0.5 Mg Tab, 0.5 MG PO HS for 5 Days, #5 TAB 05/18/25 Lorazepam (Ativan) 0.5 Mg Tab, 0.5 MG PO HS for 5 Days, #5 TAB 05/18/25 Lorazepam (Ativan) 0.5 Mg Tab, 1 TAB PO HS for 5 Days, #5 TAB 05/18/25 Vit W/ Ferrous Fumara ( One Daily) Daily Tab, 1 TAB PO DAILY, #90 TAB 3 Refills 02/21/21 Past Medical History PAST MEDICAL HISTORY: Anxiety Surgical History: Tonsillectomy WINE MAKER History: Denies all WINE MAKER Hx Family History Family History: Unknown Social History Smoker: Cigarettes, Less Than 1 Pack/Day Alcohol: Denies ETOH Use Drugs: Marijuana Lives In: Home X-Ray, Labs, Meds, VS Vital Signs Date Time Temp Pulse Resp B/P (MAP) Pulse Ox O2 Delivery O2 Flow Rate FiO2 06/02/25 18:24 98.6 133 22 123/84 100 98.6 Lab Test 06/02/25 18:46 06/02/25 18:45 Range/Units Lactic Acid Level Pending White Blood Count 7.5 4.4-10.8 10^3/uL Red Blood Count 3.30 L 4.0-5.20 10^6/uL Hemoglobin 9.7 L 12.2-16.2 g/dL Hematocrit 28.4 L 36.0-46.0 % Mean Corpuscular Volume 86.0 80.0-100.0 fL Mean Corpuscular Hemoglobin 29.3 28.0-32.0 pg Mean Corpuscular Hemoglobin Concent 34.0 32.0-36.0 g/dL Red Cell Distribution Width 15.0 H 11.8-14.3 % Platelet Count 309 140-450 10^3/uL Mean Platelet Volume 7.9 6.9-10.8 fL Neutrophils (%) (Auto) 58.9 37.0-80.0 % Lymphocytes (%) (Auto) 35.3 10.0-50.0 % Monocytes (%) (Auto) 3.6 0.0-12.0 % Eosinophils (%) (Auto) 1.9 0.0-7.0 % Basophils (%) (Auto) 0.3 0.0-2.0 % Neutrophils # (Auto) 4.4 1.6-8.6 10 ^3/uL Lymphocytes # (Auto) 2.6 0.4-5.4 10 ^3/uL Monocytes # (Auto) 0.3 0-1.3 10 ^3/uL Eosinophils # (Auto) 0.1 0-0.8 10 ^3/uL Basophils # (Auto) 0 0-0.2 10 ^3/uL Nucleated Red Blood Cells 0.1 % Sodium Level 143 136-145 mmol/L Potassium Level 3.8 3.5-5.1 mmol/L Chloride Level 111 H 98-107 mmol/L Carbon Dioxide Level 23 20-31 mmol/L Anion Gap 9 5-15 Blood Urea Nitrogen 7 L 9-23 mg/dL Creatinine 0.80 # 0.550-1.02 mg/dL Glomerular Filtration Rate Calc 104 >90 mL/min BUN/Creatinine Ratio 8.8 L 10.0-20.0 Serum Glucose 82 74-106 mg/dL Calcium Level 9.0 8.7-10.4 mg/dL I personally scribed for MAYUR SMART PAC ([employer]) on 06/02/25 at 19:12. Electronically submitted by Nilam Mercedes ([employer]). I personally scribed for MAYUR SMART PAC ([employer]) on 06/02/25 at 19:14. Electronically submitted by Nilam Mercedes ([employer]). MAYUR SMART PAC Jun 02, 2025 19:12
[2025-06-02 19:16] LABS: Lactic Acid w/Reflex 2.3 mmol/L (0.4-2.0)
--- NOTE | 2025-06-02 19:16 | ED.PDOC ---
History of Present Illness HPI Comments This is a 24 year old female who presents to the ED via EMS with a chief complaint of headache, lower back pain, and pelvic pressure for X1 day. Patient states she was discharged from [facility] yesterday after having a Dilation and Curettage procedure done X2 days ago via Dr. Yepez. Patient reports symptoms onset since. Patient presents to the ED A&Ox4, moderately photophobic. Patient has no further complaints at this time and otherwise denies N/V/D, abdominal pain, dysuria, hematuria, fever, or chills. Patient was tachycardic and tachypneic at arrival. Chief Complaint: Headache Time Seen by MD: 18:53 Primary Care Provider: UNKNOWN Reviewed Notes: Nurses Notes, Mail Superintendent Notes, Medications, Allergies Allergies: Coded Allergies: NO KNOWN ALLERGIES (Unverified , 09/14/20) Home Meds Active Scripts Hydrocodone-Acetaminophen (Hydrocodone Bitartrate/AC 5-325 mg) 1 Tab Tab, 1 TAB PO Q6HP PRN, #20 TAB Prov:MAYUR SMART PAC 06/02/25 Ciprofloxacin Hcl (Cipro) 500 Mg Tab, 1 TAB PO BID for 7 Days, #14 TAB Prov:MAYUR SMART PAC 06/02/25 Ibuprofen (Ibuprofen) 800 Mg Tab, 800 MG PO TID PRN for 4 Days, #21 TAB Prov:REMBERTOABEBEJOSUE DO 05/31/25 Hydrocodone-Acetaminophen (Hydrocodone Bitartrate/AC 5-325 mg) 1 Tab Tab, 1 TAB PO Q6HPRN PRN for 3 Days, #12 TAB Prov:JOSUE YEPEZ DO 05/31/25 Cephalexin Monohydrate (Cephalexin) 500 Mg Cap, 500 MG PO QID for 7 Days, CAP Prov:REMBERTOJOSUE DO 05/31/25 Acetaminophen (Acetaminophen Extra Stren) 500 Mg Tab, 500 MG PO QID PRN for 10 Days, #40 TAB Prov:JACKY GODOY MD 05/30/25 Sulfamethoxazole W/Trimethopri (Bactrim Ds Tablet) 1 Tab Tb, 1 TAB PO BID for 7 Days, #14 TAB Prov:JACKY GODOY MD 05/30/25 Clindamycin Hcl (CLEOCIN) 150 Mg Cap, 1 CAP PO QID for 10 Days, #40 CAP Prov:JACKY GODOY MD 05/30/25 Misoprostol (Cytotec) 200 Mcg Tab, 4 TAB PO ONCE for 1 Day, #4 TAB Prov:JACKY GODOY MD 05/30/25 Diphenhydramine Hcl (BENADRYL CAPSULE) 25 Mg Cp, 25 MG PO HS for 5 Days, #10 CAP Prov:MARIA LUISADMMARIA LUISA AGUIRRED RESDIENT 05/18/25 Misoprostol (Cytotec) 200 Mcg Tab, 4 TAB VG ONCE, #4 TAB Prov:MARIA LUISA CASTILLOD RESDIENT 05/18/25 Cephalexin Monohydrate (Cephalexin) 500 Mg Tab, 500 MG PO BID for 5 Days, #10 TAB Prov:MARIA LUISA CASTILLOD RESDIENT 05/18/25 Ibuprofen Micronized (Ibuprofen) 400 Mg Tab, 400 MG PO BID for 5 Days, #10 TAB Prov:MARIA LUISA CASTILLOD RESDIENT 05/18/25 Acetaminophen (Acetaminophen) 500 Mg Tab, 500 MG PO Q4HPRN, #30 TAB 0 Refills Prov:LEXI NOLASCO 05/10/25 Nitrofurantoin Monohydrate Mac (Macrobid) 100 Mg Cap, 100 MG PO BID for 7 Days, #14 CAP 0 Refills Prov:LEXI NOLASCO 05/10/25 Nitrofurantoin Monohydrate Mac (Macrobid) 100 Mg Cap, 100 MG PO BID for 5 Days, #10 CAP Prov:DENILSON HUGHES MD 03/27/25 Reported Medications Lorazepam (Ativan) 0.5 Mg Tab, 0.5 MG PO HS for 5 Days, #5 TAB 05/18/25 Lorazepam (Ativan) 0.5 Mg Tab, 0.5 MG PO HS for 5 Days, #5 TAB 05/18/25 Lorazepam (Ativan) 0.5 Mg Tab, 1 TAB PO HS for 5 Days, #5 TAB 05/18/25 Vit W/ Ferrous Fumara ( One Daily) Daily Tab, 1 TAB PO DAILY, #90 TAB 3 Refills 02/21/21 Information Source: Patient, Emergency Med Personnel Mode of Arrival: EMS Severity: Moderate Timing: Days Duration: Since onset Prehospital treatment: None Past Medical History PAST MEDICAL HISTORY: Anxiety Surgical History: Tonsillectomy 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 Hx Family History Family History: Unknown Social History Smoker: Cigarettes, Less Than 1 Pack/Day Alcohol: Denies ETOH Use Drugs: Marijuana Lives In: Home Constitutional: denies: chills, diaphoresis, fatigue, fever, malaise, sweats, weakness, others EENTM: denies: blurred vision, double vision, ear bleeding, ear discharge, ear drainage, ear pain, ear ringing, eye pain, eye redness, hearing loss, mouth pain, mouth swelling, nasal discharge, nose bleeding, nose congestion, nose pain, photophobia, tearing, throat pain, throat swelling, voice changes, others Respiratory: denies: cough, hemoptysis, orthopnea, SOB at rest, shortness of breath, SOB with excertion, stridor, wheezing, others Cardiovascular: denies: chest pain, dizzy spells, diaphoresis, Dyspnea on exertion, edema, irregular heart beat, left arm pain, lightheadedness, palpitations, PND, syncope, others Gastrointestinal: denies: abdomen distended, abdominal pain, blood streaked bowels, constipated, diarrhea, dysphagia, difficulty swallowing, hematemesis, melena, nausea, poor appetite, poor fluid intake, rectal bleeding, rectal pain, vomiting, others Genitourinary: reports: others (pelvic pressure ); denies: abnormal vagina bleeding, burning, dyspareunia, dysuria, flank pain, frequency, hematuria, incontinence, pain, , vagina discharge, urgency Neurological: reports: headache; denies: dizziness, fainting, left sided numbness, left sided weakness, numbness, paresthesia, pre-existing deficit, right sided numbness, right sided weakness, seizure, speech problems, tingling, tremors, weakness, others Musculoskeletal: reports: back pain; denies: gout, joint pain, joint swelling, muscle pain, muscle stiffness, neck pain, others Integumetry: denies: bruises, change in color, change in hair/nails, dryness, laceration, lesions, lumps, rash, wounds, others Allergic/Immunocompromised: denies: Difficulty Healing, Frequent Infections, Hives, Itching, others Hematologic/Lymphatic: denies: anemia, blood clots, easy bleeding, easy bruising, swollen glands, others Endocrine: denies: excessive hunger, excessive sweating, excessive thirst, excessive urination, flushing, intolerance to cold, intolerance to heat, unexplained weight gain, unexplained weight loss, others Psychiatric: denies: anxiety, bipolar disorder, depression, hopeless, panic disorder, schizophrenia, sleepless, suicidal, others All Other Systems: Reviewed and Negative Physical Exam General Appearance: Moderate Distress (Patient is a moderate distress at time of evaluation due to headache and pelvic concerns.), Normal HEENT: Normal ENT Inspection, Pharynx Normal, TMs Normal Neck: Full Range of Motion, Non-Tender, Normal, Normal Inspection Respiratory: Chest Non-Tender, Lungs Clear, No Accessory Muscle Use, No Respiratory Distress, Normal Breath Sounds Cardiovascular: No Edema, No JVD, No Murmur, No Gallop, Normal Peripheral Pulses, Regular Rate/Rhythm Breast Exam: Deferred Gastrointestinal: Other (Diffuse bilateral lower pelvic tenderness to palpation that has relatively nonspecific. No signs of trauma. Abdomen reasonably soft.) Genitalia: Deferred Pelvic: Deferred Rectal: Deferred Extremities: No calf tenderness, Normal capillary refill, Normal inspection, Normal range of motion, Non-tender, No pedal edema Neurologic: Alert, No Motor Deficits, Normal Affect, Normal Mood, No Sensory Deficits Cerebellar Function: NOT DONE Reflexes: NOT DONE Skin: Dry, Normal Color, Warm Lymphatic: No Adenopathy Was a procedure done? Was a procedure done?: No Differential Dx Considerations may include: Postoperative complication, sepsis, electrolyte abnormality, UTI, headache X-Ray, Labs, Meds, VS Vital Signs Date Time Temp Pulse Resp B/P (MAP) Pulse Ox O2 Delivery O2 Flow Rate FiO2 06/02/25 19:43 Room Air* 0 21 06/02/25 19:41 98.2 106 16 101/60 (74) 99 98.2 06/02/25 18:24 98.6 133 22 123/84 100 98.6 Lab Test 06/02/25 20:44 06/02/25 20:00 06/02/25 18:46 06/02/25 18:45 Range/Units Lactic Acid Level 1.1 2.3 *H 0.4-2.0 mmol/L Urine Color Colorless Yellow Urine Clarity Turbid H Clear Urine pH 6.0 5.0-9.0 Urine Specific [place] 1.008 1.001-1.035 Urine Protein Negative Negative Urine Ketones Negative Negative Urine Blood 3+ H Negative /uL Urine Nitrite Negative Negative Urine Bilirubin Negative Negative Urine Urobilinogen Normal Negative mg/dL Urine Leukocyte Esterase 3+ Negative /uL Urine RBC 12 0 - 4 /hpf Urine Microscopic WBC 36 H 0-5 /HPF Urine Squamous Epithelial Cells Mod <5 /hpf Urine Bacteria Few H None Seen /hpf Urine Mucus Few None Seen Urine Glucose Normal Normal mg/dL White Blood Count 7.5 4.4-10.8 10^3/uL Red Blood Count 3.30 L 4.0-5.20 10^6/uL Hemoglobin 9.7 L 12.2-16.2 g/dL Hematocrit 28.4 L 36.0-46.0 % Mean Corpuscular Volume 86.0 80.0-100.0 fL Mean Corpuscular Hemoglobin 29.3 28.0-32.0 pg Mean Corpuscular Hemoglobin Concent 34.0 32.0-36.0 g/dL Red Cell Distribution Width 15.0 H 11.8-14.3 % Platelet Count 309 140-450 10^3/uL Mean Platelet Volume 7.9 6.9-10.8 fL Neutrophils (%) (Auto) 58.9 37.0-80.0 % Lymphocytes (%) (Auto) 35.3 10.0-50.0 % Monocytes (%) (Auto) 3.6 0.0-12.0 % Eosinophils (%) (Auto) 1.9 0.0-7.0 % Basophils (%) (Auto) 0.3 0.0-2.0 % Neutrophils # (Auto) 4.4 1.6-8.6 10 ^3/uL Lymphocytes # (Auto) 2.6 0.4-5.4 10 ^3/uL Monocytes # (Auto) 0.3 0-1.3 10 ^3/uL Eosinophils # (Auto) 0.1 0-0.8 10 ^3/uL Basophils # (Auto) 0 0-0.2 10 ^3/uL Nucleated Red Blood Cells 0.1 % Sodium Level 143 136-145 mmol/L Potassium Level 3.8 3.5-5.1 mmol/L Chloride Level 111 H 98-107 mmol/L Carbon Dioxide Level 23 20-31 mmol/L Anion Gap 9 5-15 Blood Urea Nitrogen 7 L 9-23 mg/dL Creatinine 0.80 # 0.550-1.02 mg/dL Glomerular Filtration Rate Calc 104 >90 mL/min BUN/Creatinine Ratio 8.8 L 10.0-20.0 Serum Glucose 82 74-106 mg/dL Calcium Level 9.0 8.7-10.4 mg/dL Current Medications Medications (Trade) Dose Ordered Sig/Cornel Route Start Time Stop Time Status Last Admin Acetaminophen/ Hydrocodone Bitart ([place] 10/325MG Tab) 1 tab ONCE ONCE PO 06/02/25 18:30 06/02/25 18:35 DC 06/02/25 20:20 Ondansetron HCl (Zofran Po) 4 mg ONCE ONCE PO 06/02/25 18:30 06/02/25 18:35 DC 06/02/25 20:18 Sodium Chloride 1,000 ml @ 1,000 mls/hr Q1H ONCE IV 06/02/25 19:30 06/02/25 20:29 DC 06/02/25 20:18 X-Ray, Labs, Meds, VS Comment All studies performed the ED were evaluated by me personally. Serum studies were unremarkable for any systemic concerns, but urinalysis confirmed a urinary tract infection. Patient had good response to symptoms status post medication dispensed. Advised patient utilize antibiotics as directed until completion and additionally, patient should follow up with her arranging funeral director on Wednesday for discussions related to today's visit. 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 Patient Education/Counseling: Diagnosis, Treatment Family Education/Counseling: Diagnosis, Treatment, No Family Present Medical Screening: No EMC Exist At This Time SEPSIS Sepsis Screen Date sepsis recognized/suspect: Jun 02, 2025 Time Sepsis recognized/suspect: 1835 Recent Procedure: Yes On Antibiotic Therapy: Yes Respiratory Rate >20: Yes Heart Rate >90: Yes Temp<36 C (96.8 F) or >38.3 C: No SBP <90 or MAP <65 mmHG: No New Acute Mental Status Change: No Is the patient on CPAP, BIPAP,: No Physician Orders Heplock Iv (06/02/25 ) Hydromorphone Injection (Dilaudid Inject (06/02/25 23:15) Vital Signs Date Time Temp Pulse Resp B/P (MAP) Pulse Ox O2 Delivery O2 Flow Rate FiO2 06/02/25 19:43 Room Air* 0 21 9/13/25 19:41 98.2 106 16 101/60 (74) 99 98.2 06/02/25 18:24 98.6 133 22 123/84 100 98.6 Laboratory Tests Test 06/02/25 18:45 06/02/25 18:46 06/02/25 20:44 White Blood Count 7.5 10^3/uL (4.4-10.8) Lactic Acid Level 2.3 mmol/L (0.4-2.0) *H 1.1 mmol/L (0.4-2.0) Medications Medications Dose Ordered Sig/Cornel Route Start Time Stop Time Status Last Admin Dose Admin Acetaminophen/ Hydrocodone Bitart 1 tab ONCE ONCE PO 06/02/25 18:30 06/02/25 18:35 DC 06/02/25 20:20 Ondansetron HCl 4 mg ONCE ONCE PO 06/02/25 18:30 06/02/25 18:35 DC 06/02/25 20:18 Sodium Chloride 1,000 ml @ 1,000 mls/hr Q1H ONCE IV 06/02/25 19:30 06/02/25 20:29 DC 06/02/25 20:18 Departure 1 Departure Time of Disposition: 22:08 Impression: Primary Impression: UTI (urinary tract infection) Additional Impression: Headache Disposition: 01 HOME / SELF CARE / HOMELESS Condition: Stable Additional Instructions: Advised patient utilize antibiotics as directed until completion as well as pain medication as needed. Patient should follow up with her OB on Wednesday for discussions related to today's visit. e-Prescriptions Oxycodone W/ Acetaminophen (Percocet 5/325MG) 1 Tab Tb 1 TAB PO Q8HP PRN, #15 TAB Prov: MAYUR SMART PAC 06/02/25 Ciprofloxacin Hcl (Cipro) 500 Mg Tab 1 TAB PO BID for 7 Days, #14 TAB Prov: MAYUR SMART PAC 06/02/25 Discharged With: Self, Friend Critical Care Note Critical Care Time?: No Stability Stability form required: No Heart Score Heart Score: Heart Score Response (Comments) Value History N/A 0 EKG N/A 0 Age N/A 0 Risk Factors N/A 0 Troponin N/A 0 Total 0 I personally scribed for MAUYR SMART PAC ([email or web address]) on 06/02/25 at 19:15. Electronically submitted by Nilam Mercedes ([email or web address]). MAYUR SMART PAC Jun 02, 2025 19:15
[2025-06-02] MEDS: SODIUM CHLORIDE 0.9% 1,000 ML IV ONE (20:18)
[2025-06-02] MEDS: HYDROcodone-ACET 10/325MG TAB PO ONE ×2 (20:18→20:20)
[2025-06-02] MEDS: ONDANSETRON ODT 4 MG TAB PO ONE ×2 (20:18→20:21)
[2025-06-02] MEDS ORDERED: HYDROcodone-ACET 5/325MG TAB ONE (20:19)
[2025-06-02] MEDS ORDERED: ONDANSETRON ODT 4 MG TAB ONE (20:19)
[2025-06-02 21:35] LABS: Urine Protein, UAD Negative (Negative)
[2025-06-02] MEDS ORDERED: HYDR-4902 PO (22:10)
[2025-06-02] MEDS ORDERED: CIPR-173 PO (22:10)
[2025-06-02 23:09] VITALS: TEMP 98.8
[2025-06-02] MEDS ORDERED: PERCOT PO (23:10)
[2025-06-02] MEDS ORDERED: HYDROmorphone HCL 2 MG/ML VL/or syr ONE (23:49)
[2025-06-02] MEDS ORDERED: CIPROFLOXACIN HCL 500 MG TAB PO ONE (23:50)
[2025-06-02] MEDS: HYDROmorphone HCL 2 MG/ML VL/or syr IM ONE (23:53)
[2025-06-02] MEDS: CIPROFLOXACIN HCL 500 MG TAB PO ONE (23:53)
[2025-06-03 00:05] VITALS: BP 134/72; PULSE 81; RESP 18; O2SAT 100
== END 2025-06-03 00:13 | disposition home or self-care (01) ==
LOC: ER 18:22 → EDSEX 18:22 → EDBD 18:22 → ER 06-03 00:13
DX: N39.0 Urinary tract infection, site not specified (principal); R51.9 Headache, unspecified; F41.9 Anxiety disorder, unspecified; F17.210 Nicotine dependence, cigarettes, uncomplicated; Z90.89 Acquired absence of other organs; Z79.899 Other long term (current) drug therapy
CPT/HCPCS: 36415; 80048; 81001; 83605; 85025; 96360; 96372; 99285; J1171; J7030; Q0162

== ENCOUNTER 2025-06-08 11:09 | Emergency (ER) | payer MEDICAID ==
[~2025-06-08] VITALS: Ht 157.5 cm; Wt 69.3 kg
[~2025-06-08 11:09] MED LIST changes: +CIPR-173 PO; +PERCOT PO
[2025-06-08 11:24] VITALS: BP 142/73; PULSE 106; RESP 18; TEMP 98.1; O2SAT 99
[2025-06-08] MEDS ORDERED: PERCOT PO (12:11)
--- NOTE | 2025-06-08 12:16 | ED.PDOC ---
History of Present Illness HPI Comments 24-year-old female who comes in with chief complaint of status post D&C after retained products. The patient states that she went to see her OBGYN today and is now having some pain. The patient states that she needs medication for the pain. She states that she typically takes Percocet so she is here for a p ossible refill of her medication. The patient denies any nausea, vomiting or diarrhea. The patient states that the pain is about a 3/10. Chief Complaint: Pelvic Pain Time Seen by MD: 11:14 Primary Care Provider: UNKNOWN Reviewed Notes: Nurses Notes, Medications, Allergies (No allergies to medi cations) Allergies: Coded Allergies: NO KNOWN ALLERGIES (Unverified , 09/14/20) Home Meds Active Scripts Oxycodone W/ Acetaminophen (Percocet 5/325MG) 1 Tab Tb, 1 TAB PO Q8HP PRN, #15 TAB Prov:DENILSON HUGHES MD 06/08/25 Ciprofloxacin Hcl (Cipro) 500 Mg Tab, 1 TAB PO BID for 7 Days, #14 TAB Prov:MAYUR SMART 06/02/25 Ibuprofen (Ibuprofen) 800 Mg Tab, 800 MG PO TID PRN for 4 Days, #21 TAB Prov:JOSUE SR DO 05/31/25 Hydrocodone-Acetaminophen (Hydrocodone Bitartrate/AC 5-325 mg) 1 Tab Tab, 1 TAB PO Q6HPRN PRN for 3 Days, #12 TAB Prov:JOSUE SR DO 05/31/25 Cephalexin Monohydrate (Cephalexin) 500 Mg Cap, 500 MG PO QID for 7 Days, CAP Prov:JOSUE SR DO 05/31/25 Acetaminophen (Acetaminophen Extra Stren) 500 Mg Tab, 500 MG PO QID PRN for 10 Days, #40 TAB Prov:JACKY GODOY MD 05/30/25 Sulfamethoxazole W/Trimethopri (Bactrim Ds Tablet) 1 Tab Tb, 1 TAB PO BID for 7 Days, #14 TAB Prov:JACKY GODOY MD 05/30/25 Clindamycin Hcl (CLEOCIN) 150 Mg Cap, 1 CAP PO QID for 10 Days, #40 CAP Prov:JACKY GODOY MD 05/30/25 Misoprostol (Cytotec) 200 Mcg Tab, 4 TAB PO ONCE for 1 Day, #4 TAB Prov:JACKY GODOY MD 05/30/25 Diphenhydramine Hcl (BENADRYL CAPSULE) 25 Mg Cp, 25 MG PO HS for 5 Days, #10 CAP Prov:AIDA CASTILLO RESDIENT 05/18/25 Misoprostol (Cytotec) 200 Mcg Tab, 4 TAB VG ONCE, #4 TAB Prov:AIDA CASTILLO RESDIENT 05/18/25 Cephalexin Monohydrate (Cephalexin) 500 Mg Tab, 500 MG PO BID for 5 Days, #10 TAB Prov:AIDA CASTILLO RESDIENT 05/18/25 Ibuprofen Micronized (Ibuprofen) 400 Mg Tab, 400 MG PO BID for 5 Days, #10 TAB Prov:AIDA CASTILLO RESDIENT 05/18/25 Acetaminophen (Acetaminophen) 500 Mg Tab, 500 MG PO Q4HPRN, #30 TAB 0 Refills Prov:LEXI NOLASCO 05/10/25 Nitrofurantoin Monohydrate Mac (Macrobid) 100 Mg Cap, 100 MG PO BID for 7 Days, #14 CAP 0 Refills Prov:LEXI NOLASCO 05/10/25 Nitrofurantoin Monohydrate Mac (Macrobid) 100 Mg Cap, 100 MG PO BID for 5 Days, #10 CAP Prov:DENILSON HUGHES MD 03/27/25 Reported Medications Lorazepam (Ativan) 0.5 Mg Tab, 0.5 MG PO HS for 5 Days, #5 TAB 05/18/25 Lorazepam (Ativan) 0.5 Mg Tab, 0.5 MG PO HS for 5 Days, #5 TAB 05/18/25 Lorazepam (Ativan) 0.5 Mg Tab, 1 TAB PO HS for 5 Days, #5 TAB 05/18/25 Vit W/ Ferrous Fumara ( One Daily) Daily Tab, 1 TAB PO DAILY, #90 TAB 3 Refills 02/21/21 Information Source: Patient Mode of Arrival: Ambulatory Severity: Mild Timing: Days Duration: Since onset Prehospital treatment: None Associated signs and symptoms Suprapubic type pain Past Medical History PAST MEDICAL HISTORY: Anxiety Surgical History: Tonsillectomy Surgical History (Other): History of D&C 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) Family History Family History: Family hx of Cancer Social History Smoker: Cigarettes, Less Than 1 Pack/Day Alcohol: Denies ETOH Use Drugs: Marijuana Lives In: Home Constitutional: denies: chills, diaphoresis, fatigue, fever, malaise, sweats, weakness, others EENTM: denies: blurred vision, double vision, ear bleeding, ear discharge, ear drainage, ear pain, ear ringing, eye pain, eye redness, hearing loss, mouth pain, mouth swelling, nasal discharge, nose bleeding, nose congestion, nose pain, photophobia, tearing, throat pain, throat swelling, voice changes, others Respiratory: denies: cough, hemoptysis, orthopnea, SOB at rest, shortness of breath, SOB with excertion, stridor, wheezing, others Cardiovascular: denies: chest pain, dizzy spells, diaphoresis, Dyspnea on exertion, edema, irregular heart beat, left arm pain, lightheadedness, palpitations, PND, syncope, others Gastrointestinal: denies: abdomen distended, abdominal pain, blood streaked bowels, constipated, diarrhea, dysphagia, difficulty swallowing, hematemesis, melena, nausea, poor appetite, poor fluid intake, rectal bleeding, rectal pain, vomiting, others Genitourinary: reports: pain; denies: abnormal vagina bleeding, burning, dyspareunia, dysuria, flank pain, frequency, hematuria, incontinence, , vagina discharge, urgency, others Neurological: denies: dizziness, fainting, headache, left sided numbness, left sided weakness, numbness, paresthesia, pre-existing deficit, right sided numbness, right sided weakness, seizure, speech problems, tingling, tremors, weakness, others Musculoskeletal: denies: back pain, gout, joint pain, joint swelling, muscle pain, muscle stiffness, neck pain, others Integumetry: denies: bruises, change in color, change in hair/nails, dryness, laceration, lesions, lumps, rash, wounds, others Allergic/Immunocompromised: denies: Difficulty Healing, Frequent Infections, Hives, Itching, others Hematologic/Lymphatic: denies: anemia, blood clots, easy bleeding, easy bruising, swollen glands, others Endocrine: denies: excessive hunger, excessive sweating, excessive thirst, excessive urination, flushing, intolerance to cold, intolerance to heat, unexplained weight gain, unexplained weight loss, others Psychiatric: denies: anxiety, bipolar disorder, depression, hopeless, panic disorder, schizophrenia, sleepless, suicidal, others Physical Exam General Appearance: No Apparent Distress HEENT: Normal ENT Inspection, Pharynx Normal, TMs Normal Neck: Full Range of Motion, Non-Tender, Normal, Normal Inspection Respiratory: Chest Non-Tender, Lungs Clear, No Accessory Muscle Use, No Respiratory Distress, Normal Breath Sounds Cardiovascular: No Edema, No JVD, No Murmur, No Gallop, Normal Peripheral Pulses, Regular Rate/Rhythm Breast Exam: Deferred Gastrointestinal: No Organomegaly, Non Tender, No Pulsatile Mass, Normal Bowel Sounds, Soft Genitalia: Deferred Pelvic: Deferred Rectal: Deferred Extremities: No calf tenderness, Normal capillary refill, Normal inspection, Normal range of motion, Non-tender, No pedal edema Musculoskeletal : Apperance: Normal 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 Was a procedure done?: No Differential Dx Considerations may include: Status post D&C, abdominal pain, medication refill X-Ray, Labs, Meds, VS Vital Signs Date Time Temp Pulse Resp B/P (MAP) Pulse Ox O2 Delivery O2 Flow Rate FiO2 06/08/25 11:24 98.1 106 18 142/73 99 98.1 The patient was given a prescription of Percocet The patient will return to the emergency department's condition worsens The patient understands and agrees with the management Time of 1ST Reevaluation: 12:15 Reevaluation 1ST: Improved Patient Education/Counseling: Diagnosis, Treatment, Prognosis, Need For Follow Up Family Education/Counseling: No Family Present SEPSIS Sepsis Screen Date sepsis recognized/suspect: Jun 08, 2025 Time Sepsis recognized/suspect: 1126 Recent Procedure: Yes On Antibiotic Therapy: No Respiratory Rate >20: No Heart Rate >90: Yes Temp<36 C (96.8 F) or >38.3 C: No SBP <90 or MAP <65 mmHG: No New Acute Mental Status Change: No Is the patient on CPAP, BIPAP,: No Vital Signs Date Time Temp Pulse Resp B/P (MAP) Pulse Ox O2 Delivery O2 Flow Rate FiO2 06/08/25 11:24 98.1 106 18 142/73 99 98.1 Departure 1 Departure Time of Disposition: 12:15 Impression: Primary Impression: Medication refill Additional Impressions: Status post D&C Pelvic pain Disposition: HOME / SELF CARE / HOMELESS Condition: Fair e-Prescriptions Oxycodone W/ Acetaminophen (Percocet 5/325MG) 1 Tab Tb 1 TAB PO Q8HP PRN, #15 TAB Prov: DENILSON HUGHES MD 06/08/25 Discharged With: Self Critical Care Note Critical Care Time?: No Stability Stability form required: No Heart Score Heart Score: Heart Score Response (Comments) Value History N/A 0 EKG N/A 0 Age N/A 0 Risk Factors N/A 0 Troponin N/A 0 Total 0 DENILSON HUGHES MD Jun 08, 2025 12:16
== END 2025-06-08 12:24 | disposition home or self-care (01) ==
LOC: ER 11:09
DX: R10.2 Pelvic and perineal pain (principal); F17.210 Nicotine dependence, cigarettes, uncomplicated; Z48.817 Encounter for surgical aftercare following surgery on the skin and subcutaneous tissue; Z90.89 Acquired absence of other organs; Z76.0 Encounter for issue of repeat prescription

== ENCOUNTER 2025-09-06 22:55 | Inpatient (IN) | payer MEDICAID ==
[~2025-09-06] VITALS: Ht 157.5 cm; Wt 68.9 kg
--- NOTE | 2025-09-06 23:42 | ED.PDOC ---
History of Present Illness HPI Comments 24-year-old female who came to ER via EMS for generalized weakness. Patient does have history of hypokalemia and anxiety. States she has been feeling generally weak all day, lethargic, dizzy, with loss of appetite. Also complaining of left-sided chest pain radiating to the back. On arrival paramedics, with a systolic blood pressure went down to 84, so 300 cc of IV fluids were given while on the way to the emergency room. Patient does have history of blood transfusions in the past secondary to dilatation and curettage the May 2025 REVIEW OF SYSTEMS: General: No fever, no chills, or fatigue HEENT: No sore throat, no earache, no congestion, no neck pain. Cardiac: (+) chest pain. No palpitations. Lungs: No shortness of breath, no cough. GI: No nausea, no vomiting, no diarrhea, no constipation, no abdominal pain : No dysuria, frequency, or urgency. No hematuria. Musculoskeletal: No joint pain , no joint swelling, no extremity edema. Skin: No rash, no itching. Neuro: No headache, no dizziness, (+) weakness EXAM: General: Awake, alert and oriented. No acute distress. Skin: Skin in warm, dry and intact. Appropriate color for ethnicity. HEENT: The head is normocephalic and atraumatic. Conjunctivae are clear without exudates or hemorrhage. Sclera is non-icteric. EOM are intact. No signs of nystagmus. Eyelids are normal in appearance without swelling or lesions. Oral mucosa is pink and moist Neck: The neck is supple with normal range of motion. No JVD. Cardiac: Heart rate and rhythm are normal. No murmurs, gallops, or rubs are auscultated. Respiratory: No signs of respiratory distress. Lung sounds are clear in all lobes bilaterally without rales, rhonchi, or wheezes. Abdominal: Abdomen is soft, non-tender without distention. Bowel sounds are present and normoactive in all four quadrants. Extremities: Upper and lower extremities are atraumatic in appearance without deformity or edema. Neurological: The patient is awake, alert and oriented to person, place, and time with normal speech. Speech is clear. There is no facial asymmetry. Psychiatric: Appropriate mood and affect. Good judgement and insight Chief Complaint: General Weakness Time Seen by MD: 23:42 Primary Care Provider: UNKNOWN Reviewed Notes: Nurses Notes Allergies: Coded Allergies: NO KNOWN ALLERGIES (Unverified , 09/14/20) Home Meds Active Scripts Oxycodone W/ Acetaminophen (Percocet 5/325MG) 1 Tab Tb, 1 TAB PO Q8HP PRN, #15 TAB Prov:DENILSON HUGHES MD 06/08/25 Ciprofloxacin Hcl (Cipro) 500 Mg Tab, 1 TAB PO BID for 7 Days, #14 TAB Prov:MAYUR SMART PAC 06/02/25 Ibuprofen (Ibuprofen) 800 Mg Tab, 800 MG PO TID PRN for 4 Days, #21 TAB Prov:JOSUE SR DO 05/31/25 Hydrocodone-Acetaminophen (Hydrocodone Bitartrate/AC 5-325 mg) 1 Tab Tab, 1 TAB PO Q6HPRN PRN for 3 Days, #12 TAB Prov:JOSUE SR DO 05/31/25 Cephalexin Monohydrate (Cephalexin) 500 Mg Cap, 500 MG PO QID for 7 Days, CAP Prov:JOSUE SR DO 05/31/25 Acetaminophen (Acetaminophen Extra Stren) 500 Mg Tab, 500 MG PO QID PRN for 10 Days, #40 TAB Prov:JACKY GODOY MD 05/30/25 Sulfamethoxazole W/Trimethopri (Bactrim Ds Tablet) 1 Tab Tb, 1 TAB PO BID for 7 Days, #14 TAB Prov:JACKY GODOY MD 05/30/25 Clindamycin Hcl (CLEOCIN) 150 Mg Cap, 1 CAP PO QID for 10 Days, #40 CAP Prov:JACKY GODOY MD 05/30/25 Misoprostol (Cytotec) 200 Mcg Tab, 4 TAB PO ONCE for 1 Day, #4 TAB Prov:JACKY GODOY MD 05/30/25 Diphenhydramine Hcl (BENADRYL CAPSULE) 25 Mg Cp, 25 MG PO HS for 5 Days, #10 CAP Prov:HEWADMALHEWAD RESDIENT 05/18/25 Misoprostol (Cytotec) 200 Mcg Tab, 4 TAB VG ONCE, #4 TAB Prov:HEWADMALALEXISWAD RESDIENT 05/18/25 Cephalexin Monohydrate (Cephalexin) 500 Mg Tab, 500 MG PO BID for 5 Days, #10 TAB Prov:AIDA CASTILLO RESDIENT 05/18/25 Ibuprofen Micronized (Ibuprofen) 400 Mg Tab, 400 MG PO BID for 5 Days, #10 TAB Prov:AIDA CASTILLO RESDIENT 05/18/25 Acetaminophen (Acetaminophen) 500 Mg Tab, 500 MG PO Q4HPRN, #30 TAB 0 Refills Prov:LEXI NOLASCO 05/10/25 Nitrofurantoin Monohydrate Mac (Macrobid) 100 Mg Cap, 100 MG PO BID for 7 Days, #14 CAP 0 Refills Prov:LEXI NOLASCO 05/10/25 Nitrofurantoin Monohydrate Mac (Macrobid) 100 Mg Cap, 100 MG PO BID for 5 Days, #10 CAP Prov:DENILSON HUGHES MD 03/27/25 Reported Medications Lorazepam (Ativan) 0.5 Mg Tab, 0.5 MG PO HS for 5 Days, #5 TAB 05/18/25 Lorazepam (Ativan) 0.5 Mg Tab, 0.5 MG PO HS for 5 Days, #5 TAB 05/18/25 Lorazepam (Ativan) 0.5 Mg Tab, 1 TAB PO HS for 5 Days, #5 TAB 05/18/25 Vit W/ Ferrous Fumara ( One Daily) Daily Tab, 1 TAB PO DAILY, #90 TAB 3 Refills 02/21/21 Information Source: Patient Mode of Arrival: EMS Past Medical History PAST MEDICAL HISTORY: Anxiety Past Medical History (Other): Hypokalemia Surgical History: Tonsillectomy Surgical History (Other): Dilatation and curettage status post blood transfusion May 2025 [facility] History: Denies all [facility] Hx, Other Family History Family History: Reviewed,noncontributory to illness Social History Smoker: Cigarettes, Less Than 1 Pack/Day Alcohol: Denies ETOH Use Drugs: Marijuana Lives In: Home Was a procedure done? Was a procedure done?: No Differential Dx Considerations may include: Anemia, electrolyte imbalance, weakness, hypotension X-Ray, Labs, Meds, VS Vital Signs Date Time Temp Pulse Resp B/P (MAP) Pulse Ox O2 Delivery O2 Flow Rate FiO2 09/07/25 04:29 64 15 92/57 (69) 95 09/07/25 02:34 63 14 97/55 (69) 09/07/25 00:44 59 09/07/25 00:23 98.2 75 16 118/73 (88) 99 98.2 09/06/25 23:00 98.6 86 18 102/71 98 98.6 09/06/25 22:59 Room Air* 0 21 Lab Test 09/07/25 02:16 09/07/25 01:55 09/07/25 00:56 09/06/25 23:56 Range/Units Influenza Type A Antigen Negative Negative Influenza Type B Antigen Negative Negative SARS-CoV-2 Antigen (Rapid) Negative NEGATIVE Urine Color Yellow Yellow Urine Clarity Clear Clear Urine pH 7.0 5.0-9.0 Urine Specific [place] 1.014 1.001-1.035 Urine Protein Negative Negative Urine Ketones Negative Negative Urine Blood Negative Negative /uL Urine Nitrite Negative Negative Urine Bilirubin Negative Negative Urine Urobilinogen Normal Negative mg/dL Urine Leukocyte Esterase 1+ Negative /uL Urine RBC None seen 0 - 4 /hpf Urine Microscopic WBC 14 H 0-5 /HPF Urine Squamous Epithelial Cells Few <5 /hpf Urine Bacteria None seen None Seen /hpf Urine Mucus Few None Seen Urine Glucose Normal Normal mg/dL Urine Test Negative Negative Urine Opiates Screen Neg NEGATIVE Urine Fentanyl Screen Neg NEGATIVE Urine Barbiturates Screen Neg NEGATIVE Urine Phencyclidine Screen Neg NEGATIVE Urine Amphetamines Screen Neg NEGATIVE Urine Benzodiazepines Screen Pos NEGATIVE Urine Cocaine Screen Neg NEGATIVE Urine Cannabinoids Screen Pos NEGATIVE Magnesium Level 2.0 1.6-2.6 mg/dL Total Bilirubin 0.2 0.2-1.0 mg/dL Aspartate Amino Transferase (AST) 18 13-40 U/L Alanine Aminotransferase (ALT) 18 7-40 U/L Alkaline Phosphatase 55 46-116 U/L Troponin I High Sensitivity < 3 L < 3 L </=34 ng/L White Blood Count 10.0 4.4-10.8 10^3/uL Red Blood Count 4.62 4.0-5.20 10^6/uL Hemoglobin 11.9 L 12.2-16.2 g/dL Hematocrit 37.1 36.0-46.0 % Mean Corpuscular Volume 80.3 80.0-100.0 fL Mean Corpuscular Hemoglobin 25.8 L 28.0-32.0 pg Mean Corpuscular Hemoglobin Concent 32.1 32.0-36.0 g/dL Red Cell Distribution Width 17.2 H 11.8-14.3 % Platelet Count 305 140-450 10^3/uL Mean Platelet Volume 8.1 6.9-10.8 fL Neutrophils (%) (Auto) 55.5 37.0-80.0 % Lymphocytes (%) (Auto) 35.7 10.0-50.0 % Monocytes (%) (Auto) 6.6 0.0-12.0 % Eosinophils (%) (Auto) 1.9 0.0-7.0 % Basophils (%) (Auto) 0.3 0.0-2.0 % Neutrophils # (Auto) 5.5 1.6-8.6 10 ^3/uL Lymphocytes # (Auto) 3.6 0.4-5.4 10 ^3/uL Monocytes # (Auto) 0.7 0-1.3 10 ^3/uL Eosinophils # (Auto) 0.2 0-0.8 10 ^3/uL Basophils # (Auto) 0 0-0.2 10 ^3/uL Nucleated Red Blood Cells 0.0 % Sodium Level 140 136-145 mmol/L Potassium Level 3.8 3.5-5.1 mmol/L Chloride Level 109 H 98-107 mmol/L Carbon Dioxide Level 23 20-31 mmol/L Anion Gap 8 5-15 Blood Urea Nitrogen < 5 L 9-23 mg/dL Creatinine 0.59 0.550-1.02 mg/dL Glomerular Filtration Rate Calc 127 >90 mL/min BUN/Creatinine Ratio 8.5 L 10.0-20.0 Serum Glucose 93 74-106 mg/dL Calcium Level 9.1 8.7-10.4 mg/dL Current Medications Medications (Trade) Dose Ordered Sig/Cornel Route Start Time Stop Time Status Last Admin Acetaminophen (Tylenol Tablet) 1,000 mg ONCE ONCE PO 09/07/25 00:45 09/07/25 00:46 DC 09/07/25 01:06 Sodium Chloride 1,000 ml @ 1,000 mls/hr Q1H ONCE IV 09/07/25 02:45 09/07/25 03:44 DC 09/07/25 02:47 Nitrofurantoin Macrocrystals (Macrobid) 100 mg ONCE ONCE PO 09/07/25 04:15 09/07/25 04:16 DC 09/07/25 04:30 CHEST RADIOGRAPH INDICATION: Chest pain TECHNIQUE: Single frontal view of the chest was obtained COMPARISON: None FINDINGS: Lungs and pleural spaces are clear. Cardiac silhouette and nehal are within normal limits. Bones and soft tissues demonstrate no significant abnormality. IMPRESSION: No acute disease. Time of 1ST Reevaluation: 23:38 Reevaluation 1ST: Unchanged Patient Education/Counseling: Need For Follow Up Family Education/Counseling: No Family Present SEPSIS Sepsis Screen Date sepsis recognized/suspect: Sep 06, 2025 Time Sepsis recognized/suspect: 2299 Recent Procedure: No On Antibiotic Therapy: No Respiratory Rate >20: No Heart Rate >90: No Temp<36 C (96.8 F) or >38.3 C: No SBP <90 or MAP <65 mmHG: No New Acute Mental Status Change: No Is the patient on CPAP, BIPAP,: No Physician Orders Electrocardigram (09/06/25 23:33) Chest Xray 1 View (09/06/25 23:33) Electrocardigram (09/07/25 02:33) Vital Signs Date Time Temp Pulse Resp B/P (MAP) Pulse Ox O2 Delivery O2 Flow Rate FiO2 09/07/25 04:29 64 15 92/57 (69) 95 09/07/25 02:34 63 14 97/55 (69) 09/07/25 00:44 59 09/07/25 00:23 98.2 75 16 118/73 (88) 99 98.2 09/06/25 23:00 98.6 86 18 102/71 98 98.6 09/06/25 22:59 Room Air* 0 21 Laboratory Tests Test 09/06/25 23:56 White Blood Count 10.0 10^3/uL (4.4-10.8) Departure 1 Departure Time of Disposition: 04:12 Impression: Primary Impression: Symptomatic hypotension Additional Impression: UTI (urinary tract infection) Disposition: ADMITTED INPATIENT Condition: Stable Comments Patient remains hypotensive asymptomatic despite treatment in the emergency department. Patient admitted to hospitalist service for further treatment, evaluation and monitoring. Critical Care Note Critical Care Time?: No Stability Stability form required: No Heart Score Heart Score: Heart Score Response (Comments) Value History N/A 0 EKG N/A 0 Age N/A 0 Risk Factors N/A 0 Troponin N/A 0 Total 0 I personally scribed for ASHLEY MENDOZA MD ([email or web address]) on 09/06/25 at 23:42. Electronically submitted by Isrrael Quarles ([employer]). I personally scribed for ASHLEY MENDOZA MD ([email or web address]) on 09/07/25 at 00:23. Electronically submitted by Isrrael Quarles ([employer]). ASHLEY MENDOZA MD Sep 06, 2025 23:42
--- NOTE | 2025-09-07 00:10 | DVH ---
CHEST RADIOGRAPH INDICATION: Chest pain TECHNIQUE: Single frontal view of the chest was obtained COMPARISON: None FINDINGS: Lungs and pleural spaces are clear. Cardiac silhouette and nehal are within normal limits. Bones and soft tissues demonstrate no significant abnormality. IMPRESSION: No acute disease.
[2025-09-07 00:11] LABS: Potassium 3.8 mmol/L (3.5-5.1); Sodium 140 mmol/L (136-145)
[2025-09-07 00:12] LABS: Anion Gap 8 (5-15); Carbon Dioxide 23 mmol/L (20-31); Chloride 109 mmol/L (98-107)
[2025-09-07 00:13] LABS: Calcium 9.1 mg/dL (8.7-10.4)
[2025-09-07 00:14] LABS: Hematocrit 37.1 % (36.0-46.0); Hemoglobin 11.9 g/dL (12.2-16.2); Mean Corpuscular Hemoglobin 25.8 pg (28.0-32.0); Mean Corpuscular Volume 80.3 fL (80.0-100.0); Nucleated Red Blood Cells % 0.0 %
[2025-09-07 00:17] LABS: Glucose 93 mg/dL (74-106)
[2025-09-07 00:18] LABS: BUN/Creatinine Ratio 8.5 (10.0-20.0); Blood Urea Nitrogen < 5 mg/dL (9-23)
[2025-09-07] MEDS: ACETAMINOPHEN 325 MG TAB PO ONE (01:06)
--- NOTE | 2025-09-07 01:17 | ECG ---
[facility] Test Date: 2025-09-07 Test Time: 00:44:18 Pat Name: DONALD CANTU Department: [facility] ED Room: 0280 Gender: F Telephone Sterilizer: DOMENIC : 2000 Requested By: ASHLEY MENDOZA Order Number: [id number] Reading MD: Micheal Ware Measurements Intervals [place] Rate: 59 P: 51 ME: 133 QRS: 64 QRSD: 95 T: 46 QT: 412 QTc: 409 Interpretive Statements Sinus rhythm Electronically Signed On 09-10-2025 15:21:57 PST by Micheal Ware Please click the below link to view image of tracing.
[2025-09-07 02:11] LABS: Urine Protein, UAD Negative (Negative)
[2025-09-07] MEDS: SODIUM CHLORIDE 0.9% 1,000 ML IV ONE ×2 (02:47→06:20)
[2025-09-07 03:07] LABS: COVID19 ANTIGEN SOFIA FIA NEGATIVE (NEGATIVE)
[2025-09-07 04:59] LABS: Alanine Aminotransferase 18.0 U/L (7-40); Alkaline Phosphatase 55.0 U/L (46-116); Magnesium 2.0 mg/dL (1.6-2.6)
[2025-09-07 05:03] LABS: Bilirubin, Total 0.2 mg/dL (0.2-1.0)
[2025-09-07] MEDS ORDERED: ACETAMINOPHEN 325 MG TAB PO PRN (06:00)
[2025-09-07] MEDS ORDERED: KETOROLAC TROMETH 30 MG/ML 1ML VIAL IV PRN (06:15)
--- NOTE | 2025-09-07 06:22 | DVHHPRES ---
History of Present Illness Resident Creating Document: TRE RYAN RESIDENT History of Present Illness Ellen Benitez is a 24-year-old female with past medical history of anxiety, recurrent UTIs came to the hospital after a presyncopal event. she was at home walking when she felt dizziness, tunnel vision, ears popped closing. She reports of increased frequency in urination and left flank pain. She also complains of associated shortness of breath and chest pain. She complains of a low appetite, has not been eating well and lost 35 lb in the past 6 months. she reports history of D and C post retained products of conception in May requiring blood transfusion. she rates the chest pain 8 on 10 in intensity, stabbing, aggravating with respiration. PMHx:anxiety, recurrent UTIs PSHx: Tonsillectomy Family history: hypertension in mother and father Social history: current smoker, 3 pack year smoking history, marijuana use, last use yesterday. Lives with family in [place] Home medication: Hydroxyzine p.r.n. for anxiety Allergic history: [place] Review of Systems Review of Systems General: patient denies fever, fatigue, weaknes, sweating, any recent changes in appetite and weight HEENT: No headaches, visiual changes, hearing loss, tinnitus, nasal congestion and discharge, and sore throat. Cardiovascular: Complains of chest pain Respiratory: No cough, and wheezing. Gastrointestinal: complains of left flank pain Genitourinary: complains of increased frequency Endocrine: No heat or cold intolerance, polydipsia, polyuria, and polyphagia. Neurological: No dizziness, extremity weakness and numbness, tremors, gait di sturbance, seizures, and memory impairment. Psychiatric: Denies depression, anxiety,or insomnia. Musculoskeletal: Denies neck pain, stiffness and swelling, back pain, muscle weakness, joint pain, stiffness, swelling, or limited range of motion. Skin: No rashes, itching, skin lesion, changes in hair, nail, skin texture and breast. Hematologic/Lymphatic: Denies easy bruising, bleeding tendencies, or lymph node enlargement. Allergies: Coded Allergies: NO KNOWN ALLERGIES (Unverified , 09/14/20) Medications Current Medications Medications Dose Ordered Sig/Cornel Route Start Time Stop Time Status Last Admin Dose Admin Acetaminophen 650 mg Q6HP PRN PO 09/07/25 06:00 UNV Exam Vital Signs Vital Signs Date Time Temp Pulse Resp B/P (MAP) Pulse Ox O2 Delivery O2 Flow Rate FiO2 09/07/25 04:29 64 15 92/57 (69) 95 09/07/25 00:23 98.2 98.2 09/06/25 22:59 Room Air* 0 21 Exam General Appearance: Alert, Oriented X3, Cooperative, No acute distress HEENT: Atraumatic, PERRLA, EOMI, Mucous membrane moist/pink Respiratory: Clear to auscultation, Normal air movement Cardiovascular: Regular rate, Normal S1, Normal S2, No murmurs, chest wall tenderness present Abdominal: tenderness in the left flank Extremities: No clubbing, No cyanosis, No edema, Normal pulses, No tenderness/swelling Skin: No rashes, No breakdown, No significant lesion Neuro: Normal gait, Normal speech, Strength at 5/5 X4 ext, Normal tone, Sensation intact, Cranial nerves 3-12 NL, Reflexes 2+ Psych/Mental Status: Mental status NL, Mood NL Labs/Xrays Labs Test 09/07/25 02:16 09/07/25 01:55 09/07/25 00:56 09/06/25 23:56 Range/Units Influenza Type A Antigen Negative Negative Influenza Type B Antigen Negative Negative SARS-CoV-2 Antigen (Rapid) Negative NEGATIVE Urine Color Yellow Yellow Urine Clarity Clear Clear Urine pH 7.0 5.0-9.0 Urine Specific [place] 1.014 1.001-1.035 Urine Protein Negative Negative Urine Ketones Negative Negative Urine Blood Negative Negative /uL Urine Nitrite Negative Negative Urine Bilirubin Negative Negative Urine Urobilinogen Normal Negative mg/dL Urine Leukocyte Esterase 1+ Negative /uL Urine RBC None seen 0 - 4 /hpf Urine Microscopic WBC 14 H 0-5 /HPF Urine Squamous Epithelial Cells Few <5 /hpf Urine Bacteria None seen None Seen /hpf Urine Mucus Few None Seen Urine Glucose Normal Normal mg/dL Urine Test Negative Negative Magnesium Level 2.0 1.6-2.6 mg/dL Total Bilirubin 0.2 0.2-1.0 mg/dL Aspartate Amino Transferase (AST) 18 13-40 U/L Alanine Aminotransferase (ALT) 18 7-40 U/L Alkaline Phosphatase 55 46-116 U/L Troponin I High Sensitivity < 3 L </=34 ng/L White Blood Count 10.0 4.4-10.8 10^3/uL Red Blood Count 4.62 4.0-5.20 10^6/uL Hemoglobin 11.9 L 12.2-16.2 g/dL Hematocrit 37.1 36.0-46.0 % Mean Corpuscular Volume 80.3 80.0-100.0 fL Mean Corpuscular Hemoglobin 25.8 L 28.0-32.0 pg Mean Corpuscular Hemoglobin Concent 32.1 32.0-36.0 g/dL Red Cell Distribution Width 17.2 H 11.8-14.3 % Platelet Count 305 140-450 10^3/uL Mean Platelet Volume 8.1 6.9-10.8 fL Neutrophils (%) (Auto) 55.5 37.0-80.0 % Lymphocytes (%) (Auto) 35.7 10.0-50.0 % Monocytes (%) (Auto) 6.6 0.0-12.0 % Eosinophils (%) (Auto) 1.9 0.0-7.0 % Basophils (%) (Auto) 0.3 0.0-2.0 % Neutrophils # (Auto) 5.5 1.6-8.6 10 ^3/uL Lymphocytes # (Auto) 3.6 0.4-5.4 10 ^3/uL Monocytes # (Auto) 0.7 0-1.3 10 ^3/uL Eosinophils # (Auto) 0.2 0-0.8 10 ^3/uL Basophils # (Auto) 0 0-0.2 10 ^3/uL Nucleated Red Blood Cells 0.0 % Sodium Level 140 136-145 mmol/L Potassium Level 3.8 3.5-5.1 mmol/L Chloride Level 109 H 98-107 mmol/L Carbon Dioxide Level 23 20-31 mmol/L Anion Gap 8 5-15 Blood Urea Nitrogen < 5 L 9-23 mg/dL Creatinine 0.59 0.550-1.02 mg/dL Glomerular Filtration Rate Calc 127 >90 mL/min BUN/Creatinine Ratio 8.5 L 10.0-20.0 Serum Glucose 93 74-106 mg/dL Calcium Level 9.1 8.7-10.4 mg/dL SEPSIS Sepsis Screen Date sepsis recognized/suspect: Sep 07, 2025 Time Sepsis recognized/suspect: 042 Recent Procedure: No On Antibiotic Therapy: No Respiratory Rate >20: No Heart Rate >90: No Temp<36 C (96.8 F) or >38.3 C: No SBP <90 or MAP <65 mmHG: Yes New Acute Mental Status Change: No Is the patient on CPAP, BIPAP,: No Physician Orders Electrocardigram (09/06/25 23:33) Chest Xray 1 View (09/06/25 23:33) Electrocardigram (09/07/25 02:33) Admit (09/07/25 05:46) Allergies (09/07/25 05:46) Code Status (09/07/25 05:46) Complete Blood Count (09/07/25 05:46) Comprehensive Metabolic Panel (09/07/25 05:46) Condition: Fair (09/07/25 05:46) Albumin (09/07/25 05:48) Kidney (09/07/25 05:49) Drug Screen (09/07/25 05:49) Thyroid Stimulating Hormone (09/07/25 05:49) Ceftriaxone 1gm/50ml (Rocephin) (09/07/25 06:00) Blood Culture (09/07/25 05:49) Urine Bacterial Culture (09/07/25 05:49) Blood Alcohol (09/07/25 05:46) Magnesium (09/07/25 05:46) Orthostatic Vital Signs (09/07/25 ) Ferritin (09/07/25 06:09) Iron Panel (09/07/25 06:09) Sodium Chloride 0.9% (09/07/25 06:15) Acetaminophen Tablet (Tylenol Tablet) (09/07/25 09:00) Ketorolac Injection (Toradol Injection) (09/07/25 06:15) Regular Diet (09/07/25 Breakfast) Pantoprazole (Protonix) (09/07/25 10:00) Vital Signs Date Time Temp Pulse Resp B/P (MAP) Pulse Ox O2 Delivery O2 Flow Rate FiO2 09/07/25 04:29 64 15 92/57 (69) 95 09/07/25 02:34 63 14 97/55 (69) 09/07/25 00:44 59 09/07/25 00:23 98.2 75 16 118/73 (88) 99 98.2 09/06/25 23:00 98.6 86 18 102/71 98 98.6 09/06/25 22:59 Room Air* 0 21 Laboratory Tests Test 09/06/25 23:56 White Blood Count 10.0 10^3/uL (4.4-10.8) Medications Medications Dose Ordered Sig/Cornel Route Start Time Stop Time Status Last Admin Dose Admin Acetaminophen 1,000 mg ONCE ONCE PO 09/07/25 00:45 09/07/25 00:46 DC 09/07/25 01:06 1,000 MG Nitrofurantoin Macrocrystals 100 mg ONCE ONCE PO 09/07/25 04:15 09/07/25 04:16 DC 09/07/25 04:30 100 MG Sodium Chloride 1,000 ml @ 1,000 mls/hr Q1H ONCE IV 09/07/25 02:45 09/07/25 03:44 DC 09/07/25 02:47 1,000 MLS/HR Assessment/Plan Assessment/Plan Assessment and plan Acute complicated UTI Possible acute pyelonephritis Presyncope due to above Renal ultrasound IV Rocephin IV fluids Pain management with scheduled Tylenol, Toradol p.r.n. Orthostatic vital signs Urine, blood cultures Chest pain, likely musculoskeletal, ruled out ACS EKG Troponin negative Magnesium Anemia, likely iron-deficiency Ferritin, iron panel Anxiety continue hydroxyzine p.r.n. Current smoker Active marijuana abuse UDS, blood alcohol Counseled cessation for 13 minutes PUD prophylaxis: protonix 40mg DVT prophylaxis: Ambulatory Barriers to discharge: Medical diagnosis and management in progress. Patient lives with family. Independent for ADL. PCP: Dr. Segundo Specialist Relevent To Admission: None Case discussed with Dr. Rodas. Code Status: Full Code. Complex patient care discussion needed. Spend total 31 minutes for bedside assessment, case discussion and management. Plan discussed with: Patient My Orders Orders - TRE RYAN RESIDENT Procedure Category Date Status Time Admit ADMIT 09/07/25 Transmitted 05:46 Allergies MARLA 09/07/25 In Process 05:46 Code Status CODE 09/07/25 Transmitted 05:46 Complete Blood Count LAB 09/07/25 Logged 05:46 Comprehensive LAB 09/07/25 Logged Metabolic Panel 05:46 Condition: Fair MARLA 09/07/25 In Process 05:46 Kidney US 09/07/25 Logged 05:49 Drug Screen LAB 09/07/25 Logged 05:49 Thyroid Stimulating LAB 09/07/25 Logged Hormone 05:49 Ceftriaxone 1gm/50ml PHA 09/07/25 In Process (Rocephin) 06:00 Blood Culture [place] 09/07/25 Logged 05:49 Urine Bacterial [place] 09/07/25 Logged Culture 05:49 Blood Alcohol LAB 09/07/25 Logged 05:46 Magnesium LAB 09/07/25 Logged 05:46 Orthostatic Vital ED NURSING 09/07/25 Transmitted Signs Ferritin LAB 09/07/25 Logged 06:09 Iron Panel LAB 09/07/25 Logged 06:09 Sodium Chloride 0.9% PHA 09/07/25 In Process 06:15 Acetaminophen Tablet PHA 09/07/25 In Process (Tylenol Tablet) 09:00 Ketorolac Injection PHA 09/07/25 In Process (Toradol Injection) 06:15 Regular Diet DIET 09/07/25 Transmitted Breakfast Pantoprazole PHA 09/07/25 In Process (Protonix) 10:00 Visit Coding STANDARD RES Billing Provider: DAPHNIE RODAS MD Date of Service if different f: Sep 07, 2025 Common Visit Codes: 80443-[id number] INP/OBS CARE (HIGH) Secondary Visit Codes: [id number] CARE PLAN 30 MINUTES TRE RYAN Sep 07, 2025 06:22
[2025-09-07 07:08] LABS: Hemoglobin 12.5 g/dL (12.2-16.2)
[2025-09-07 07:11] LABS: Hematocrit 38.6 % (36.0-46.0); Mean Corpuscular Hemoglobin 25.9 pg (28.0-32.0); Mean Corpuscular Volume 80.1 fL (80.0-100.0); Nucleated Red Blood Cells % 0.1 %
[2025-09-07 07:20] LABS: Iron 100.0 ug/dL (50-170)
[2025-09-07 07:23] LABS: Total Iron Binding Capacity 407.0 ug/dL (250-425)
[2025-09-07 07:24] LABS: Alanine Aminotransferase 19 U/L (7-40); Albumin 4.6 g/dL (3.2-4.8); Alkaline Phosphatase 61 U/L (46-116); Anion Gap 9 (5-15); Calcium 9.4 mg/dL (8.7-10.4); Carbon Dioxide 24 mmol/L (20-31); Glucose 83 mg/dL (74-106); Magnesium 2.1 mg/dL (1.6-2.6); Potassium 3.9 mmol/L (3.5-5.1); Sodium 142 mmol/L (136-145); Total Protein 7.3 g/dL (5.7-8.2)
[2025-09-07 07:25] LABS: BUN/Creatinine Ratio 7.1 (10.0-20.0); Bilirubin, Total 0.4 mg/dL (0.2-1.0); Blood Urea Nitrogen < 5 mg/dL (9-23); Chloride 109 mmol/L (98-107)
[2025-09-07 07:30] VITALS: PULSE 70; RESP 11; O2SAT 100
--- NOTE | 2025-09-07 08:04 | DVH ---
CLINICAL INFORMATION: Pyelonephritis. TECHNIQUE: Grayscale sonographic imaging of the kidneys and bladder was performed, assisted by color Doppler technique. COMPARISON: US PELVIC on DOS: 05/18/25 FINDINGS: The right kidney measures 10.8 cm in length. No hydronephrosis. Unremarkable cortical thickness and echogenicity. There is increased vascular flow in the right kidney. The left kidney measures 11.1 cm in length. No hydronephrosis. Unremarkable cortical thickness and echogenicity. Increased vascular flow in the left kidney. Prevoid bladder volume measured 99 mL. No bladder wall thickening or mass visualized. IMPRESSION: 1. No hydronephrosis. 2. Increased vascular flow in both kidneys is nonspecific, may be due to nonspecific inflammation, including pyelonephritis, although correlation with clinical findings is needed to evaluate for pyelonephritis.
[2025-09-07 08:43] LABS: Amphetamine Screen, Urine Neg (NEGATIVE)
[2025-09-07 08:44] LABS: Opiate Scree,Urine Neg (NEGATIVE)
[2025-09-07 08:45] LABS: Barbiturate Scree,Urine Neg (NEGATIVE); Benzodiazephine Screen, Urine Pos (NEGATIVE); Cannabinoid Screen, Urine Pos (NEGATIVE); Cocaine Screen, Urine Neg (NEGATIVE); Phencyclidine Screen, Urine Neg (NEGATIVE)
[2025-09-07] MEDS: ACETAMINOPHEN 325 MG TAB PO SCH (09:00)
[2025-09-07] MEDS: HYDROcodone-ACET 5/325MG TAB PO ONE (09:29)
[2025-09-07] MEDS: SODIUM CHLORIDE 0.9% 500 ML IV ONE (09:29)
[2025-09-07] MEDS: PANTOPRAZOLE 40 MG/10 ML VIAL INJ IV SCH (09:35)
--- NOTE | 2025-09-07 09:41 | DVH ---
EXAM: XY LUMBAR SPINE 3 VIEW HISTORY: LBP COMPARISON: None TECHNIQUE: AP and lateral views of the lumbar spine and spot lateral of the lumbosacral junction were performed. FINDINGS/IMPRESSION: No acute displaced fracture. There is exaggeration of the lumbar lordosis. Intervertebral disc heights are maintained. If clinical symptoms persist, CT or MRI may be beneficial in further assessment.
[2025-09-07 10:46] VITALS: BP 117/77; PULSE 70; PULSE 76; RESP 16; TEMP 97.7; O2SAT 98
[2025-09-07 13:00] VITALS: BP 109/74; PULSE 84; RESP 18; TEMP 98.1; O2SAT 98
--- NOTE | 2025-09-07 15:46 | DVHPNRES ---
Progress Note Date Seen: Sep 07, 2025 Resident Creating Document: KRISTY MCKEON RESIDENT Medical Necessity Reason Pt with a Central, PICC or Fol: No Subjective Review of Systems Ellen Benitez is a 24-year-old female with past medical history of anxiety, recurrent UTIs came to the hospital after a presyncopal event. she was at home walking when she felt dizziness, tunnel vision, ears popped closing. She reports of increased frequency in urination and left flank pain. She also complains of associated shortness of breath and chest pain, palpitation She complains of a low appetite, has not been eating well and lost 35 lb in the past 6 months. she reports history of D and C post retained products of conception in May requiring blood transfusion. she rates the chest pain 8 on 10 in intensity, stabbing, aggravating with respiration. Urinalysis revealed leukocyte esterase 1+, WBC 14. UDS positive for cannabinoids and benzos. COVID and flu negative. CXR no acute abnormality. Ultrasound of the kidney revealed No hydronephrosis. Increased vascular flow in both kidneys is nonspecific, may be due to nonspecific inflammation, including pyelonephritis, although correlation with clinical findings is needed to evaluate for pyelonephritis. X-ray lumbar spine, no acute fracture or dislocation. PMHx:anxiety, recurrent UTIs PSHx: Tonsillectomy Family history: hypertension in mother and father Social history: current smoker, 3 pack year smoking history, marijuana use, last use yesterday. Lives with family in [place] Home medication: Hydroxyzine p.r.n. for anxiety Allergic history: [place] ROS Gastrointestinal- denies any rectal bleeding, nausea or vomiting Musculoskeletal-denies acute joint swelling or tenderness or redness Neurological- denies acute dysarthria, dysphagia, change in vision Psychiatry- denies depression or SI or HI Skin- denies acute rash or purpura Patient was seen today at bedside Labs and chart reviewed Patient complained of low back pain, Ordered x-ray lumbosacral spine, no fracture or spinal stenosis noted Patient reported feeling anxious, ordered Ativan PRN Patient on antibiotic ceftriaxone for UTI Objective vital signs Vital Sign Date Time Temp Pulse Resp B/P (MAP) Pulse Ox O2 Delivery O2 Flow Rate FiO2 09/07/25 13:00 98.1 84 18 109/74 (86) 98 98.1 09/07/25 10:46 Room Air* 0 21 medications Current Medications Medications Dose Ordered Sig/Cornel Route Start Time Stop Time Status Last Admin Dose Admin Ceftriaxone Sodium 50 ml @ 100 mls/hr DAILY@09 IV 09/07/25 06:00 09/07/25 06:15 100 MLS/HR Acetaminophen 650 mg Q6HR PO 09/07/25 09:00 Pantoprazole Sodium 40 mg DAILY IV 09/07/25 10:00 09/07/25 09:35 40 MG Lorazepam 0.5 mg Q12HP PRN PO 09/07/25 15:00 Examination General examination- awake, alert, HEENT- PEERLA, no acute nasal discharge Cardiovascular- S1-S2 audible, rate and rhythm regular, no murmur Respiratory- CTAB, no wheeze or rhonchi Gastrointestinal-nontender, bowel sound+. Nondistended Musculoskeletal-no acute joint swelling or tenderness or redness Lower extremity- no leg edema Neurological- cranial nerves intact, no acute dysarthria or dysphagia Psychiatry- denies depression or SI or HI Skin- no acute rash or purpura laboratory and microbiology Laboratory Tests 09/07/25 06:21 Test 09/07/25 06:21 Range/Units Serum Glucose 83 74-106 mg/dL Problem List/Assessment/Plan Problem List/Assessment/Plan Assessment and plan #Acute complicated UTI #Possible acute pyelonephritis # suspected Presyncope due to above Ultrasound of the kidney revealed No hydronephrosis. Increased vascular flow in both kidneys is nonspecific, may be due to nonspecific inflammation, including pyelonephritis, although correlation with clinical findings is needed to evaluate for pyelonephritis -continue ceftriaxone as prescribed -pending blood culture, Urine culture #Acute Chest pain, likely musculoskeletal, rule out ACS EKG no acute ST-T wave changes Troponin negative -monitor clinically #Anemia, likely iron-deficiency -monitor CBC #Anxiety Ativan PRN #Current smoker #Substance abuse, Active marijuana abuse Counseled cessation for 13 minutes # low back pain -x-ray lumbar spine no acute fracture or dislocation -Tylenol PRN Goals of care, Code status ; discussed with >15 minutes PUD prophylaxis: Pantoprazole DVT prophylaxis: Patient ambulating activity Plan discussed with Dr. Juarez, nursing staff, Total time spent on patient evaluation, chart review, assessment and plan, discussion discussion >35 minutes Plan discussed with: Patient, Other (RN) My Orders My Orders Orders - KRISTY MCKEON Procedure Category Date Status Time Urine ED NURSING 09/07/25 Transmitted Lumbar Spine 3 View XY 09/07/25 Resulted 09:07 Lorazepam Tablet PHA 09/07/25 In Process (Ativan Tablet) 15:00 Visit Coding STANDARD RES Billing Provider: DONTE HOOKS MD Date of Service if different f: Sep 07, 2025 Common Visit Codes: [id number] INP/OBS CARE(HIGH) KRISTY MCKEON Sep 07, 2025 15:46
[2025-09-07 17:00] VITALS: BP 127/83; PULSE 77; RESP 18; TEMP 97.5; O2SAT 99
[2025-09-07] MEDS: LORazepam 0.5 MG TAB PO PRN (18:09)
[2025-09-07 21:00] VITALS: BP 113/65; PULSE 64; RESP 18; TEMP 97.9; O2SAT 96
[2025-09-08 01:00] VITALS: BP 97/61; PULSE 60; RESP 18; TEMP 97.9; O2SAT 96
[2025-09-08 05:00] VITALS: BP 97/57; PULSE 75; RESP 18; TEMP 97.5; O2SAT 98
[2025-09-08 08:36] LABS: Anion Gap 11 (5-15); Carbon Dioxide 22 mmol/L (20-31); Potassium 3.8 mmol/L (3.5-5.1); Sodium 142 mmol/L (136-145)
[2025-09-08 08:37] LABS: Calcium 9.2 mg/dL (8.7-10.4)
[2025-09-08 08:41] LABS: Chloride 109 mmol/L (98-107)
[2025-09-08 08:42] LABS: BUN/Creatinine Ratio 9.8 (10.0-20.0); Glucose 77 mg/dL (74-106)
[2025-09-08 08:43] LABS: Magnesium 1.9 mg/dL (1.6-2.6)
[2025-09-08 08:44] LABS: Blood Urea Nitrogen 6 mg/dL (9-23)
[2025-09-08 09:00] VITALS: BP 94/57; PULSE 75; RESP 17; TEMP 98.2; O2SAT 98
--- NOTE | 2025-09-08 09:52 | DVHDSRES ---
Discharge Summary Date of Admission Resident Creating Document: KRISTY MCKEON RESIDENT Sep 07, 2025 at 05:46 Date of Discharge: Sep 08, 2025 Admitting Diagnosis Acute chest pain likely due to acute coronary syndrome Labs/Diagnostic Data: Laboratory Results Test 09/08/25 05:42 09/07/25 07:22 09/07/25 06:21 09/07/25 02:16 Sodium Level 142 mmol/L (136-145) Potassium Level 3.8 mmol/L (3.5-5.1) Chloride Level 109 mmol/L (98-107) Carbon Dioxide Level 22 mmol/L (20-31) Anion Gap 11 (5-15) Blood Urea Nitrogen 6 mg/dL (9-23) Creatinine 0.61 mg/dL (0.550-1.02) Glomerular Filtration Rate Calc 126 mL/min (>90) BUN/Creatinine Ratio 9.8 (10.0-20.0) Serum Glucose 77 mg/dL (74-106) Calcium Level 9.2 mg/dL (8.7-10.4) Magnesium Level 1.9 mg/dL (1.6-2.6) Lactic Acid Level 0.9 mmol/L (0.4-2.0) White Blood Count 7.9 10^3/uL (4.4-10.8) Red Blood Count 4.81 10^6/uL (4.0-5.20) Hemoglobin 12.5 g/dL (12.2-16.2) Hematocrit 38.6 % (36.0-46.0) Mean Corpuscular Volume 80.1 fL (80.0-100.0) Mean Corpuscular Hemoglobin 25.9 pg (28.0-32.0) Mean Corpuscular Hemoglobin Concent 32.4 g/dL (32.0-36.0) Red Cell Distribution Width 17.0 % (11.8-14.3) Platelet Count 356 10^3/uL (140-450) Mean Platelet Volume 8.6 fL (6.9-10.8) Neutrophils (%) (Auto) 44.8 % (37.0-80.0) Lymphocytes (%) (Auto) 45.5 % (10.0-50.0) Monocytes (%) (Auto) 6.7 % (0.0-12.0) Eosinophils (%) (Auto) 2.8 % (0.0-7.0) Basophils (%) (Auto) 0.2 % (0.0-2.0) Neutrophils # (Auto) 3.5 10 ^3/uL (1.6-8.6) Lymphocytes # (Auto) 3.6 10 ^3/uL (0.4-5.4) Monocytes # (Auto) 0.5 10 ^3/uL (0-1.3) Eosinophils # (Auto) 0.2 10 ^3/uL (0-0.8) Basophils # (Auto) 0 10 ^3/uL (0-0.2) Nucleated Red Blood Cells 0.1 % Hemoglobin A1c 5.3 % A1C (<5.7) Iron Level 100 ug/dL (50-170) Total Iron Binding Capacity 407 ug/dL (250-425) Percent Iron Saturation 24.6 % (15-50) Ferritin 7.6 ng/mL (10-291) Total Bilirubin 0.4 mg/dL (0.2-1.0) Aspartate Amino Transferase (AST) 18 U/L (13-40) Alanine Aminotransferase (ALT) 19 U/L (7-40) Alkaline Phosphatase 61 U/L (46-116) Total Protein 7.3 g/dL (5.7-8.2) Albumin 4.6 g/dL (3.2-4.8) Thyroid Stimulating Hormone (TSH) 2.90 uIU/mL (0.55-4.78) Plasma/Serum Blood Alcohol < 3.0 mg/dL (<10) Influenza Type A Antigen Negative (Negative) Influenza Type B Antigen Negative (Negative) SARS-CoV-2 Antigen (Rapid) Negative (NEGATIVE) Test 09/07/25 01:55 09/07/25 00:56 Urine Color Yellow (Yellow) Urine Clarity Clear (Clear) Urine pH 7.0 (5.0-9.0) Urine Specific [place] 1.014 (1.001-1.035) Urine Protein Negative (Negative) Urine Ketones Negative (Negative) Urine Blood Negative /uL (Negative) Urine Nitrite Negative (Negative) Urine Bilirubin Negative (Negative) Urine Urobilinogen Normal mg/dL (Negative) Urine Leukocyte Esterase 1+ /uL (Negative) Urine RBC None seen /hpf (0 - 4) Urine Microscopic WBC 14 /HPF (0-5) Urine Squamous Epithelial Cells Few /hpf (<5) Urine Bacteria None seen /hpf (None Seen) Urine Mucus Few (None Seen) Urine Glucose Normal mg/dL (Normal) Urine Test Negative (Negative) Urine Opiates Screen Neg (NEGATIVE) Urine Fentanyl Screen Neg (NEGATIVE) Urine Barbiturates Screen Neg (NEGATIVE) Urine Phencyclidine Screen Neg (NEGATIVE) Urine Amphetamines Screen Neg (NEGATIVE) Urine Benzodiazepines Screen Pos (NEGATIVE) Urine Cocaine Screen Neg (NEGATIVE) Urine Cannabinoids Screen Pos (NEGATIVE) Troponin I High Sensitivity < 3 ng/L (</=34) Other Laboratory Tests 09/08/25 05:42 09/07/25 06:21 Brief Hx & Hospital Course: Ellen Benitez is a 24-year-old female with past medical history of anxiety, recurrent UTIs came to the hospital after a presyncopal event. she was at home walking when she felt dizziness, tunnel vision, ears popped closing. She reports of increased frequency in urination and left flank pain. She also complains of associated shortness of breath and chest pain, palpitation She complains of a low appetite, has not been eating well and lost 35 lb in the past 6 months. she reports history of D and C post retained products of conception in May requiring blood transfusion. she rates the chest pain 8 on 10 in intensity, stabbing, aggravating with respiration. Urinalysis revealed leukocyte esterase 1+, WBC 14. UDS positive for cannabinoids and benzos. COVID and flu negative. CXR no acute abnormality. Ultrasound of the kidney revealed No hydronephrosis. Increased vascular flow in both kidneys is nonspecific, may be due to nonspecific inflammation, including pyelonephritis, although correlation with clinical findings is needed to evaluate for pyelonephritis. X-ray lumbar spine, no acute fracture or dislocation. Hospital course-patient was treated conservatively with the IV antibiotic for suspected UTI and pyelonephritis and pain medication for pain. X-ray lumbar spine no fracture noted. Patient was given Ativan for anxiety. Patient's symptoms improved. Blood culture and urine culture no growth. Patient is being discharged with Keflex 500 mg p.o. b.i.d. for 5 days and iron. Patient was advised to follow up at [place] [facility]. Patient was hemodynamically stable on discharge. All questions answered General examination- awake, alert, HEENT- PEERLA, no acute nasal discharge Cardiovascular- S1-S2 audible, rate and rhythm regular, no murmur Respiratory- CTAB, no wheeze or rhonchi Gastrointestinal-nontender, bowel sound+. Nondistended Musculoskeletal-no acute joint swelling or tenderness or redness Lower extremity- no leg edema Neurological- cranial nerves intact, no acute dysarthria or dysphagia Psychiatry- denies depression or SI or HI Skin- no acute rash or purpura Assessment #Acute complicated UTI #Possible acute pyelonephritis # suspected Presyncope due to above #Acute Chest pain, likely musculoskeletal, ruleed out ACS # panic attack #Anemia, likely iron-deficiency #Anxiety #Current smoker # low back pain Plan Keflex 500 mg p.o. b.i.d. for 5 days Ibuprofen 400 mg q.6h PRN for 5 days Pantoprazole 40 mg p.o. daily for 2 weeks Ferrous sulfate 325 mg p.o. every other day as prescribed Please resume other home medications Follow up at [place] [facility] Counseled about healthy lifestyle, effect of substance abuse on health Plan of care discussed with Dr. Juarez Operations or Procedures [place] [address] Ph: [phone] DIAGNOSTIC IMAGING Diagnostic Imaging Report : [id number] Signed PATIENT: ELLEN BENITEZ ACCT: [id number] UNIT: [id number] : 2000 LOC: OVERFLOW ROOM / BED: [address] [place] [address] / AGE / SEX: 24 / F ADM STATUS: ADM IN SERVICE 0549 ORDERING PHYSICIAN: TRE RYAN RESIDENT PROCEDURE(s): KIDUS - KIDNEY REASON: ? Pyelonephritis ORDER NUMBER(s): [id number], ACCESSION NUMBER(s): [id number] CLINICAL INFORMATION: Pyelonephritis. TECHNIQUE: Grayscale sonographic imaging of the kidneys and bladder was performed, assisted by color Doppler technique. COMPARISON: US PELVIC on DOS: 05/18/25 FINDINGS: The right kidney measures 10.8 cm in length. No hydronephrosis. Unremarkable cortical thickness and echogenicity. There is increased vascular flow in the right kidney. The left kidney measures 11.1 cm in length. No hydronephrosis. Unremarkable cortical thickness and echogenicity. Increased vascular flow in the left kidney. Prevoid bladder volume measured 99 mL. No bladder wall thickening or mass visualized. IMPRESSION: 1. No hydronephrosis. 2. Increased vascular flow in both kidneys is nonspecific, may be due to nonspecific inflammation, including pyelonephritis, although correlation with clinical findings is needed to evaluate for pyelonephritis. ATED BY: YOSEF JEAN BAPTISTE DO DICTATED DATE/TIME: 09/07/25801 SIGNED BY: YOSEF JEAN BAPTISTE DO SIGNED DATE/TIME: 09/07/25801 CC: [place] [address] Ph: [phone] DIAGNOSTIC IMAGING Diagnostic Imaging Report : [id number] Signed PATIENT: ELLEN BENITEZ ACCT: [id number] UNIT: [id number] : 2000 LOC: ER ROOM / BED: / AGE / SEX: 24 / F ADM STATUS: REG ER SERVICE 2333 ORDERING PHYSICIAN: ASHLEY MENDOZA MD PROCEDURE(s): CXR1 - CHEST XRAY 1 VIEW REASON: Chest pain ORDER NUMBER(s): [id number], ACCESSION NUMBER(s): [id number] CHEST RADIOGRAPH INDICATION: Chest pain TECHNIQUE: Single frontal view of the chest was obtained COMPARISON: None FINDINGS: Lungs and pleural spaces are clear. Cardiac silhouette and nehal are within normal limits. Bones and soft tissues demonstrate no significant abnormality. IMPRESSION: No acute disease. ATED BY: RAJAN RODRIGUEZ MD DICTATED DATE/TIME: 09/07/257 SIGNED BY: RAJAN RODRIGUEZ MD SIGNED DATE/TIME: 09/07/257 CC: [address] [address] Ph: [phone] DIAGNOSTIC IMAGING Diagnostic Imaging Report : [id number] Signed PATIENT: ELLEN BENITEZ ACCT: [id number] UNIT: [id number] : 2000 LOC: OVERFLOW ROOM / BED: 1010-ER / A AGE / SEX: 24 / F ADM STATUS: ADM IN SERVICE 6 ORDERING PHYSICIAN: KRISTY MCKEON RESIDENT PROCEDURE(s): LUMB2 - LUMBAR SPINE 3 VIEW REASON: LBP ORDER NUMBER(s): [id number], ACCESSION NUMBER(s): [id number] EXAM: XY LUMBAR SPINE 3 VIEW HISTORY: LBP COMPARISON: None TECHNIQUE: AP and lateral views of the lumbar spine and spot lateral of the lumbosacral junction were performed. FINDINGS/IMPRESSION: No acute displaced fracture. There is exaggeration of the lumbar lordosis. Intervertebral disc heights are maintained. If clinical symptoms persist, CT or MRI may be beneficial in further assessment. ATED BY: BENNETT BENNETT MD DICTATED DATE/TIME: 09/07/25938 SIGNED BY: BENNETT BENNETT MD SIGNED DATE/TIME: 09/07/25938 CC: Condition at Discharge: Stable Final Diagnosis/Problems List Acute chest pain likely due to costochondritis Panic attack Substance abuse marijuana Anxiety Discharge Disposition: Home Discharge Instruct/Medications Diet: Regular Activity: No Restrictions, As Tolerated Follow Up/Referral: [facility] clinic PCP Medications: As prescribed Scheduled Acetaminophen (Acetaminophen), 500 MG PO Q4HPRN Cephalexin (Keflex Capsule), 500 MG PO BID Cephalexin Monohydrate (Cephalexin), 500 MG PO BID Cephalexin Monohydrate (Cephalexin), 500 MG PO QID Ciprofloxacin Hcl (Cipro), 1 TAB PO BID Clindamycin Hcl (Cleocin), 1 CAP PO QID Diphenhydramine Hcl (Benadryl Capsule), 25 MG PO HS Ferrous Sulfate (Ferrous Sulfate), 325 MG PO every other day Ibuprofen (Ibuprofen), 1 TAB PO Q6HPRN Ibuprofen Micronized (Ibuprofen), 400 MG PO BID Lorazepam (Ativan), 1 TAB PO HS, (Reported) Lorazepam (Ativan), 0.5 MG PO HS, (Reported) Lorazepam (Ativan), 0.5 MG PO HS, (Reported) Misoprostol (Cytotec), 4 TAB VG ONCE Misoprostol (Cytotec), 4 TAB PO ONCE Nitrofurantoin Monohydrate Mac (Macrobid), 100 MG PO BID Nitrofurantoin Monohydrate Mac (Macrobid), 100 MG PO BID Pantoprazole Sodium Sesquihydr (Pantoprazole Sodium), 40 MG PO DAILY Vit W/ Ferrous Fumara ( One Daily), 1 TAB PO DAILY, (Reported) Sulfamethoxazole W/Trimethopri (Bactrim Ds Tablet), 1 TAB PO BID Scheduled PRN Acetaminophen (Acetaminophen Extra Stren), 500 MG PO QID PRN Hydrocodone-Acetaminophen (Hydrocodone Bitartrate/AC 5-325 mg), 1 TAB PO Q6HPRN PRN Ibuprofen (Ibuprofen), 800 MG PO TID PRN Oxycodone W/ Acetaminophen (Percocet 5/325MG), 1 TAB PO Q8HP PRN Discharge Statement: "Patient was advised to return to the ER or call 911 if any headaches, dizziness, shortness of breath, chest pain, abdominal pain, bleeding, fevers, or worsening of medical condition. Patient was counseled about treatment plan, medications, possible side effects, patientverbalized understanding. All questions were answered to the best of my ability. This discharge took greater then 30 minutes in planning, reviewing documentation, counseling the patient, and discussing with other team members." ASSESSMENT ASSESSMENT Assessment Acute chest pain likely due to costochondritis Panic attack Substance abuse marijuana Anxiety Visit Coding STANDARD RES Billing Provider: DONTE HOOKS MD Date of Service if different f: Sep 08, 2025 Common Visit Codes: [id number] DISCH DAY >30min KRISTY MCKEON RESIDENT Sep 08, 2025 09:52
[2025-09-08] MEDS ORDERED: CEPH250C PO (09:54)
[2025-09-08] MEDS ORDERED: PANT40T PO (09:54)
[2025-09-08] MEDS ORDERED: IBUP-1453 PO (09:54)
[2025-09-08 11:36] VITALS: TEMP 36.8
[2025-09-08] MEDS ORDERED: FER325T PO (12:34)
== END 2025-09-08 15:15 | disposition home or self-care (01) | DRG 463 ==
LOC: ER 22:55 → EDBD 22:55 → OVERFLOW 09-07 05:46 → WEST WING 09-07 10:39
PROVIDERS: ADMIT Student in an Organized Health Care Education/Training Program; ATTEND Student in an Organized Health Care Education/Training Program
DX: N10 Acute pyelonephritis (principal); D50.9 Iron deficiency anemia, unspecified; F41.0 Panic disorder [episodic paroxysmal anxiety]; F17.210 Nicotine dependence, cigarettes, uncomplicated; F12.10 Cannabis abuse, uncomplicated; M94.0 Chondrocostal junction syndrome [Tietze]; Z20.822 Contact with and (suspected) exposure to COVID-19; Z82.49 Family history of ischemic heart disease and other diseases of the circulatory system
CPT/HCPCS: 36415; 71045; 72100; 76775; 80048; 80053; 80307; 80320; 81001; 81025; 82040; 82247; 82728; 83036; 83540; 83550; 83605; 83735; 84075; 84443; 84450; 84460; 84484; 85025; 87040; 87086; 87426; 87804; 93005; 96360; G0378; J2470

== ENCOUNTER 2025-09-18 12:08 | Emergency (ER) | payer MEDICAID ==
[~2025-09-18] VITALS: Ht 157.5 cm; Wt 62.7 kg
[~2025-09-18 12:08] MED LIST changes: +CEPH250C PO; +FER325T PO; +IBUP-1453 PO; +PANT40T PO
[2025-09-18 12:15] VITALS: BP 117/74; PULSE 99; RESP 14; TEMP 98.3; O2SAT 98
--- NOTE | 2025-09-18 13:57 | ED.PDOC ---
Back pain HPI HPI Comments 24-year-old female that presents to the ED for chief complaint of localized breast pain. Patient states she is having severe burning and ripping type pain localized to the left breast. Patient reports pain is at the upper portion of the left breast, with visible redness/bruising like discoloration noted around the lower breast and periareolar region. Patient states symptoms began yesterday, initially mild, but have progressed to constant and severe as of today. Patient denies any pain, tenderness, or changes to the right breast. Chief Complaint: Breast pain Time Seen by MD: 13:53 Primary Care Provider: UNKNOWN Reviewed Notes: Medications, Allergies Allergies: Coded Allergies: NO KNOWN ALLERGIES (Unverified , 09/14/20) Home Meds Active Scripts Gabapentin (Once-Daily) (Gabapentin) 300 Mg Tab, 300 MG PO Q6HP PRN, #60 TAB Prov:KAILASH CORTES MD 09/18/25 Azithromycin (Azithromycin) 500 Mg Tab, 1 TAB PO DAILY for 5 Days, #5 TAB Prov:KAILASH CORTES MD 09/18/25 Acetaminophen (Acetaminophen) 500 Mg Tab, 500 MG PO Q6HP PRN for 10 Days, #40 TAB 0 Refills Prov:ROGERIO MOSES NP 09/18/25 Ibuprofen Micronized (Ibuprofen) 600 Mg Tab, 600 MG PO Q8HP PRN for 10 Days, #30 TAB 0 Refills Prov:ROGERIO MOSES TRAVERTINE INSTALLER 09/18/25 Ferrous Sulfate (Ferrous Sulfate) 325 Mg Tab, 325 MG PO every other day for 90 Days, #45 TAB Prov:KRISTY MCKEON 09/08/25 Pantoprazole Sodium Sesquihydr (Pantoprazole Sodium) 40 Mg Tab, 40 MG PO DAILY for 14 Days, #14 TAB Prov:KRISTY MCKEON 09/08/25 Ibuprofen (Ibuprofen) 400 Mg Tab, 1 TAB PO Q6HPRN for 5 Days, #20 TAB Prov:KRISTY MCKEON 09/08/25 Cephalexin (KEFLEX CAPSULE) 250 Mg Cp, 500 MG PO BID for 5 Days, #10 CAP Prov:KRISTY MCKEON 09/08/25 Oxycodone W/ Acetaminophen (Percocet 5/325MG) 1 Tab Tb, 1 TAB PO Q8HP PRN, #15 T AB Prov:DENILSON HUGHES MD 06/08/25 Ciprofloxacin Hcl (Cipro) 500 Mg Tab, 1 TAB PO BID for 7 Days, #14 TAB Prov:MAYUR SMART 06/02/25 Ibuprofen (Ibuprofen) 800 Mg Tab, 800 MG PO TID PRN for 4 Days, #21 TAB Prov:JOSUE SR DO 05/31/25 Hydrocodone-Acetaminophen (Hydrocodone Bitartrate/AC 5-325 mg) 1 Tab Tab, 1 TAB PO Q6HPRN PRN for 3 Days, #12 TAB Prov:JOSUE SR DO 05/31/25 Cephalexin Monohydrate (Cephalexin) 500 Mg Cap, 500 MG PO QID for 7 Days, CAP Prov:JOSUE SR 05/31/25 Acetaminophen (Acetaminophen Extra Stren) 500 Mg Tab, 500 MG PO QID PRN for 10 Days, #40 TAB Prov:JACKY GODOY MD 05/30/25 Sulfamethoxazole W/Trimethopri (Bactrim Ds Tablet) 1 Tab Tb, 1 TAB PO BID for 7 Days, #14 TAB Prov:JACKY GODOY MD 05/30/25 Clindamycin Hcl (CLEOCIN) 150 Mg Cap, 1 CAP PO QID for 10 Days, #40 CAP Prov:JACKY GODOY MD 05/30/25 Misoprostol (Cytotec) 200 Mcg Tab, 4 TAB PO ONCE for 1 Day, #4 TAB Prov:JACKY GODOY MD 05/30/25 Diphenhydramine Hcl (BENADRYL CAPSULE) 25 Mg Cp, 25 MG PO HS for 5 Days, #10 CAP Prov:AIDA CASTILLO RESDIENT 05/18/25 Misoprostol (Cytotec) 200 Mcg Tab, 4 TAB VG ONCE, #4 TAB Prov:AIDA CASTILLO RESDIENT 05/18/25 Cephalexin Monohydrate (Cephalexin) 500 Mg Tab, 500 MG PO BID for 5 Days, #10 TAB Prov:AIDA CASTILLO RESDIENT 05/18/25 Ibuprofen Micronized (Ibuprofen) 400 Mg Tab, 400 MG PO BID for 5 Days, #10 TAB Prov:AIDA CASTILLO RESDIENT 05/18/25 Acetaminophen (Acetaminophen) 500 Mg Tab, 500 MG PO Q4HPRN, #30 TAB 0 Refills Prov:LEXI NOLASCO 05/10/25 Nitrofurantoin Monohydrate Mac (Macrobid) 100 Mg Cap, 100 MG PO BID for 7 Days, #14 CAP 0 Refills Prov:LEXI NOLASCO 05/10/25 Nitrofurantoin Monohydrate Mac (Macrobid) 100 Mg Cap, 100 MG PO BID for 5 Days, #10 CAP Prov:DENILSON HUGHES MD 03/27/25 Reported Medications Lorazepam (Ativan) 0.5 Mg Tab, 0.5 MG PO HS for 5 Days, #5 TAB 05/18/25 Lorazepam (Ativan) 0.5 Mg Tab, 0.5 MG PO HS for 5 Days, #5 TAB 05/18/25 Lorazepam (Ativan) 0.5 Mg Tab, 1 TAB PO HS for 5 Days, #5 TAB 05/18/25 Vit W/ Ferrous Fumara ( One Daily) Daily Tab, 1 TAB PO DAILY, #90 TAB 3 Refills 02/21/21 Information Source: Patient Mode of Arrival: Ambulatory Brought in by: self Past Medical History PAST MEDICAL HISTORY: Anxiety Surgical History: Tonsillectomy 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 OPERATOR Hx, Other Family History Family History: Reviewed,noncontributory to illness Social History Smoker: Cigarettes, Less Than 1 Pack/Day Alcohol: Denies ETOH Use Drugs: Marijuana Lives In: Home Constitutional: denies: chills, diaphoresis, fatigue, fever, malaise, sweats, weakness, others EENTM: denies: blurred vision, double vision, ear bleeding, ear discharge, ear drainage, ear pain, ear ringing, eye pain, eye redness, hearing loss, mouth pain, mouth swelling, nasal discharge, nose bleeding, nose congestion, nose pain, photophobia, tearing, throat pain, throat swelling, voice changes, others Respiratory: denies: cough, hemoptysis, orthopnea, SOB at rest, shortness of breath, SOB with excertion, stridor, wheezing, others Cardiovascular: denies: chest pain, dizzy spells, diaphoresis, Dyspnea on exertion, edema, irregular heart beat, left arm pain, lightheadedness, palpitations, PND, syncope, others Gastrointestinal: denies: abdomen distended, abdominal pain, blood streaked bowels, constipated, diarrhea, dysphagia, difficulty swallowing, hematemesis, melena, nausea, poor appetite, poor fluid intake, rectal bleeding, rectal pain, vomiting, others Genitourinary: denies: abnormal vagina bleeding, burning, dyspareunia, dysuria, flank pain, frequency, hematuria, incontinence, pain, , vagina discharge, urgency, others Neurological: denies: dizziness, fainting, headache, left sided numbness, left sided weakness, numbness, paresthesia, pre-existing deficit, right sided numbness, right sided weakness, seizure, speech problems, tingling, tremors, weakness, others Musculoskeletal: reports: others (Breast pain); denies: back pain, gout, joint pain, joint swelling, muscle pain, muscle stiffness, neck pain Integumetry: denies: bruises, change in color, change in hair/nails, dryness, laceration, lesions, lumps, rash, wounds, others Allergic/Immunocompromised: denies: Difficulty Healing, Frequent Infections, Hives, Itching, others Hematologic/Lymphatic: denies: anemia, blood clots, easy bleeding, easy bruising, swollen glands, others Endocrine: denies: excessive hunger, excessive sweating, excessive thirst, excessive urination, flushing, intolerance to cold, intolerance to heat, unexplained weight gain, unexplained weight loss, others Psychiatric: denies: anxiety, bipolar disorder, depression, hopeless, panic disorder, schizophrenia, sleepless, suicidal, others All Other Systems: Reviewed and Negative Physical Exam General Appearance: No Apparent Distress, Normal HEENT: Normal ENT Inspection, Pharynx Normal, TMs Normal Neck: Full Range of Motion, Non-Tender, Normal, Normal Inspection Respiratory: Chest Non-Tender, Lungs Clear, No Accessory Muscle Use, No Respiratory Distress, Normal Breath Sounds Cardiovascular: No Edema, No JVD, No Murmur, No Gallop, Normal Peripheral Pulses, Regular Rate/Rhythm Breast Exam: Deferred Gastrointestinal: No Organomegaly, Non Tender, No Pulsatile Mass, Normal Bowel Sounds, Soft Genitalia: Deferred Pelvic: Deferred Rectal: Deferred Extremities: No calf tenderness, Normal capillary refill, Normal inspection, Normal range of motion, Non-tender, No pedal edema Musculoskeletal : Apperance: Normal Neurologic: Alert, concrete puddler II-XII nml as Tested, No Motor Deficits, Normal Affect, Normal Mood, No Sensory Deficits Cerebellar Function: Normal Reflexes: Normal Skin: Other (No noted left breast redness exudates discharge nipple inversion noted) Lymphatic: No Adenopathy Was a procedure done? Was a procedure done?: No Back Pain Differential Dx Differential Diagnosis: Musculoskeletal Pain Other Differential Diagnosis Breast pain, mastitis, cellulitis X-Ray, Labs, Meds, VS Vital Signs Date Time Temp Pulse Resp B/P (MAP) Pulse Ox O2 Delivery O2 Flow Rate FiO2 09/18/25 12:15 98.3 99 14 117/74 98 98.3 X-Ray, Labs, Meds, VS Comment The patient with hypertension presents with acute onset of localized left breast pain without reported fever, nipple inversion, or significant family history of breast cancer. Differential includes mastitis, local skin infection, or other inflammatory breast process. 1. BREAST PAIN No fever or systemic symptoms, no nipple inversion, and no personal or family history of breast cancer. -Monitor for progression of symptoms -Consider antibiotics -Provide education on warning signs (worsening redness, fever, systemic symptoms) Follow-up/Disposition: Follow up as needed based on ultrasound findings or if symptoms worsen. Return for evaluation if fever develops or redness/pain increases. Additional MDM Review of External, Non-ED records: External records reviewed. Discussion with independent historian (EMS, family) history obtained from the patient/parents (if applicable) at bedside Chronic conditions affecting care: None Social determinants of health affecting care: None Consideration of admission (observation or admission): I considered escalation of care to admission for this patient, however given the reassuring workup, the patient is safe for outpatient management. Discussion with the Radiology: No Tests considered but not performed: Prescription medication considered but not given: Time of 1ST Reevaluation: 14:30 Reevaluation 1ST: Unchanged Patient Education/Counseling: Diagnosis, Treatment Family Education/Counseling: No Family Present SEPSIS Sepsis Screen Date sepsis recognized/suspect: Sep 18, 2025 Time Sepsis recognized/suspect: 1214 Recent Procedure: No On Antibiotic Therapy: No Respiratory Rate >20: No Heart Rate >90: No Temp<36 C (96.8 F) or >38.3 C: No SBP <90 or MAP <65 mmHG: No New Acute Mental Status Change: No Is the patient on CPAP, BIPAP,: No Vital Signs Date Time Temp Pulse Resp B/P (MAP) Pulse Ox O2 Delivery O2 Flow Rate FiO2 09/18/25 12:15 98.3 99 14 117/74 98 98.3 Departure 1 Departure Time of Disposition: 14:00 Impression: Primary Impression: Breast pain, left Disposition: 01 HOME / SELF CARE / HOMELESS Condition: Stable e-Prescriptions Acetaminophen (Acetaminophen) 500 Mg Tab 500 MG PO Q6HP PRN for 10 Days, #40 TAB 0 Refills Prov: ROGERIO MOSES TRAVERTINE INSTALLER 09/18/25 Ibuprofen Micronized (Ibuprofen) 600 Mg Tab 600 MG PO Q8HP PRN for 10 Days, #30 TAB 0 Refills Prov: ROGERIO MOSES TRAVERTINE INSTALLER 09/18/25 Discharged With: Self Critical Care Note Critical Care Time?: No Stability Stability form required: No Heart Score Heart Score: Heart Score Response (Comments) Value History N/A 0 EKG N/A 0 Age N/A 0 Risk Factors N/A 0 Troponin N/A 0 Total 0 I personally scribed for ROGERIO MOSES TRAVERTINE INSTALLER ([email or web address]) on 09/18/25 at 13:57. Electronically submitted by Osiris Owens ([employer]). I personally scribed for ROGERIO MOSES TRAVERTINE INSTALLER ([email or web address]) on 09/18/25 at 14:00. Electronically submitted by Osiris Owens ([employer]). I personally scribed for ROGERIO MOSES TRAVERTINE INSTALLER ([email or web address]) on 09/18/25 at 14:04. Electronically submitted by Osiris Owens ([employer]). I personally scribed for ROGERIO MOSES TRAVERTINE INSTALLER ([email or web address]) on 09/18/25 at 14:05. Electronically submitted by Osiris Owens ([employer]). ROGERIO MOSES TRAVERTINE INSTALLER Sep 18, 2025 13:57
[2025-09-18] MEDS ORDERED: IBUP1TAB5 PO (14:00)
[2025-09-18] MEDS ORDERED: ACET500T58 PO (14:00)
[2025-09-18] MEDS ORDERED: AZIT500T66 PO (21:50)
[2025-09-18] MEDS ORDERED: GABA300T4 PO (21:50)
== END 2025-09-18 15:44 | disposition home or self-care (01) ==
LOC: ER 12:14
DX: N64.4 Mastodynia (principal); F41.9 Anxiety disorder, unspecified; F17.210 Nicotine dependence, cigarettes, uncomplicated; Z79.899 Other long term (current) drug therapy; Z90.89 Acquired absence of other organs

== ENCOUNTER 2025-09-18 19:06 | Emergency (ER) | payer MEDICAID ==
[~2025-09-18] VITALS: Ht 157.5 cm; Wt 61.3 kg
[~2025-09-18 19:06] MED LIST changes: +IBUP1TAB5 PO
--- NOTE | 2025-09-18 20:01 | ED.PDOC ---
AIRWAY TRAFFIC CONTROLLER HPI Comments 24 year old female with PMX of tonsilectomy presents to the emergency department for chief complaint of left breast pain onset 1 week ago. Pt reports they were admitted to [facility] on 09/07/2025 and discharged with dx of costochondritis and fibrotic breast tissue but did not receive any medications. Pt returns with same, persistent symptoms of pain that is localized to the left side of the throat and extends to the breast. Pt states that she feels pain in her throat that is "stiff", causes pain while swallowing, as well as a ripping pain in the left side of her chest that she suspects is extending to the throat. Pt denies associated symptoms of dizziness, headache, D/V/N at this time. No other associated symptoms, modifiers, recent injuries or sick contacts present at this time. Chief Complaint: Breast pain Time Seen by MD: 19:59 Reviewed Notes: Nurses Notes, Medications, Allergies Allergies: Coded Allergies: NO KNOWN ALLERGIES (Unverified , 09/14/20) Home Meds Active Scripts Gabapentin (Once-Daily) (Gabapentin) 300 Mg Tab, 300 MG PO Q6HP PRN, #60 TAB Prov:KAILASH CORTES MD 09/18/25 Azithromycin (Azithromycin) 500 Mg Tab, 1 TAB PO DAILY for 5 Days, #5 TAB Prov:KAILASH CORTES MD 09/18/25 Acetaminophen (Acetaminophen) 500 Mg Tab, 500 MG PO Q6HP PRN for 10 Days, #40 TAB 0 Refills Prov:ROGERIO MOSES NP 09/18/25 Ibuprofen Micronized (Ibuprofen) 600 Mg Tab, 600 MG PO Q8HP PRN for 10 Days, #30 TAB 0 Refills Prov:ROGERIO MOSES NP 09/18/25 Ferrous Sulfate (Ferrous Sulfate) 325 Mg Tab, 325 MG PO every other day for 90 Days, #45 TAB Prov:KRISTY MCKEON 09/08/25 Pantoprazole Sodium Sesquihydr (Pantoprazole Sodium) 40 Mg Tab, 40 MG PO DAILY for 14 Days, #14 TAB Prov:KRISTY MCKEON 09/08/25 Ibuprofen (Ibuprofen) 400 Mg Tab, 1 TAB PO Q6HPRN for 5 Days, #20 TAB Prov:KRISTY MCKEON 09/08/25 Cephalexin (KEFLEX CAPSULE) 250 Mg Cp, 500 MG PO BID for 5 Days, #10 CAP Prov:KRISTY MCKEON RESIDENT 09/08/25 Oxycodone W/ Acetaminophen (Percocet 5/325MG) 1 Tab Tb, 1 TAB PO Q8HP PRN, #15 TAB Prov:DENILSON HGUHES MD 06/08/25 Ciprofloxacin Hcl (Cipro) 500 Mg Tab, 1 TAB PO BID for 7 Days, #14 TAB Prov:MAYUR SMART PAC 06/02/25 Ibuprofen (Ibuprofen) 800 Mg Tab, 800 MG PO TID PRN for 4 Days, #21 TAB Prov:[facility] 05/31/25 Hydrocodone-Acetaminophen (Hydrocodone Bitartrate/AC 5-325 mg) 1 Tab Tab, 1 TAB PO Q6HPRN PRN for 3 Days, #12 TAB Prov[facility] 05/31/25 Cephalexin Monohydrate (Cephalexin) 500 Mg Cap, 500 MG PO QID for 7 Days, CAP Prov:[facility] 05/31/25 Acetaminophen (Acetaminophen Extra Stren) 500 Mg Tab, 500 MG PO QID PRN for 10 Days, #40 TAB Prov:JACKY GODOY MD 05/30/25 Sulfamethoxazole W/Trimethopri (Bactrim Ds Tablet) 1 Tab Tb, 1 TAB PO BID for 7 Days, #14 TAB Prov:JACKY GODOY MD 05/30/25 Clindamycin Hcl (CLEOCIN) 150 Mg Cap, 1 CAP PO QID for 10 Days, #40 CAP Prov:JACKY GODOY MD 05/30/25 Misoprostol (Cytotec) 200 Mcg Tab, 4 TAB PO ONCE for 1 Day, #4 TAB Prov:JACKY GODOY MD 05/30/25 Diphenhydramine Hcl (BENADRYL CAPSULE) 25 Mg Cp, 25 MG PO HS for 5 Days, #10 CAP Prov:AIDA CASTILLO RESDIENT 05/18/25 Misoprostol (Cytotec) 200 Mcg Tab, 4 TAB VG ONCE, #4 TAB Prov:AIDA CASTILLO RESDIENT 05/18/25 Cephalexin Monohydrate (Cephalexin) 500 Mg Tab, 500 MG PO BID for 5 Days, #10 TAB Prov:AIDA CASTILLO RESDIENT 05/18/25 Ibuprofen Micronized (Ibuprofen) 400 Mg Tab, 400 MG PO BID for 5 Days, #10 TAB Prov:AIDA CASTILLO RESDIENT 05/18/25 Acetaminophen (Acetaminophen) 500 Mg Tab, 500 MG PO Q4HPRN, #30 TAB 0 Refills Prov:LEXI NOLASCO 05/10/25 Nitrofurantoin Monohydrate Mac (Macrobid) 100 Mg Cap, 100 MG PO BID for 7 Days, #14 CAP 0 Refills Prov:LEXI NOLASCO 05/10/25 Nitrofurantoin Monohydrate Mac (Macrobid) 100 Mg Cap, 100 MG PO BID for 5 Days, #10 CAP Prov:DENILSON HUGHES MD 03/27/25 Reported Medications Lorazepam (Ativan) 0.5 Mg Tab, 0.5 MG PO HS for 5 Days, #5 TAB 05/18/25 Lorazepam (Ativan) 0.5 Mg Tab, 0.5 MG PO HS for 5 Days, #5 TAB 05/18/25 Lorazepam (Ativan) 0.5 Mg Tab, 1 TAB PO HS for 5 Days, #5 TAB 05/18/25 Vit W/ Ferrous Fumara ( One Daily) Daily Tab, 1 TAB PO DAILY, #90 TAB 3 Refills 02/21/21 Information Source: Patient Mode of Arrival: Ambulatory Timing: Days Severity: Moderate Associated Signs and Symptoms: Breast Tenderness Past Medical History PAST MEDICAL HISTORY: Anxiety Surgical History: Tonsillectomy 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 ECONOMICS TEACHER Hx, Other Family History Family History: Reviewed,noncontributory to illness Social History Smoker: Cigarettes, Less Than 1 Pack/Day Alcohol: Denies ETOH Use Drugs: Marijuana Lives In: Home Constitutional: denies: chills, diaphoresis, fatigue, fever, malaise, sweats, weakness, others EENTM: reports: throat pain, throat swelling; denies: blurred vision, double vision, ear bleeding, ear discharge, ear drainage, ear pain, ear ringing, eye pain, eye redness, hearing loss, mouth pain, mouth swelling, nasal discharge, nose bleeding, nose congestion, nose pain, photophobia, tearing, voice changes, others Respiratory: denies: cough, hemoptysis, orthopnea, SOB at rest, shortness of breath, SOB with excertion, stridor, wheezing, others Cardiovascular: reports: chest pain; denies: dizzy spells, diaphoresis, Dyspnea on exertion, edema, irregular heart beat, left arm pain, lightheadedness, palpitations, PND, syncope, others Gastrointestinal: denies: abdomen distended, abdominal pain, blood streaked bowels, constipated, diarrhea, dysphagia, difficulty swallowing, hematemesis, melena, nausea, poor appetite, poor fluid intake, rectal bleeding, rectal pain, vomiting, others Genitourinary: denies: abnormal vagina bleeding, burning, dyspareunia, dysuria, flank pain, frequency, hematuria, incontinence, pain, , vagina discharge, urgency, others Neurological: denies: dizziness, fainting, headache, left sided numbness, left sided weakness, numbness, paresthesia, pre-existing deficit, right sided numbness, right sided weakness, seizure, speech problems, tingling, tremors, weakness, others Musculoskeletal: denies: back pain, gout, joint pain, joint swelling, muscle pain, muscle stiffness, neck pain, others Integumetry: denies: bruises, change in color, change in hair/nails, dryness, laceration, lesions, lumps, rash, wounds, others Allergic/Immunocompromised: denies: Difficulty Healing, Frequent Infections, Hives, Itching, others Hematologic/Lymphatic: denies: anemia, blood clots, easy bleeding, easy bruising, swollen glands, others Endocrine: denies: excessive hunger, excessive sweating, excessive thirst, excessive urination, flushing, intolerance to cold, intolerance to heat, unexplained weight gain, unexplained weight loss, others Psychiatric: denies: anxiety, bipolar disorder, depression, hopeless, panic disorder, schizophrenia, sleepless, suicidal, others All Other Systems: Reviewed and Negative Physical Exam General Appearance: No Apparent Distress, Normal HEENT: Normal ENT Inspection, Pharynx Normal, TMs Normal Neck: Full Range of Motion, Non-Tender, Normal, Normal Inspection Respiratory: Chest Non-Tender, Lungs Clear, No Accessory Muscle Use, No Respiratory Distress, Normal Breath Sounds Cardiovascular: No Edema, No JVD, No Murmur, No Gallop, Normal Peripheral Pulses, Regular Rate/Rhythm Breast Exam: Deferred Gastrointestinal: No Organomegaly, Non Tender, No Pulsatile Mass, Normal Bowel Sounds, Soft Genitalia: Deferred Pelvic: Deferred Rectal: Deferred Extremities: No calf tenderness, Normal capillary refill, Normal inspection, Normal range of motion, Non-tender, No pedal edema Musculoskeletal : Apperance: Normal Neurologic: Alert, nocturnist physician II-XII 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 Was a procedure done?: No X-Ray, Labs, Meds, VS Vital Signs Date Time Temp Pulse Resp B/P (MAP) Pulse Ox O2 Delivery O2 Flow Rate FiO2 09/18/25 22:02 99.0 80 16 132/82 (99) 100 99.0 09/18/25 22:02 80 16 09/18/25 19:29 99.4 83 16 133/83 100 99.4 Lab Test 09/18/25 20:18 Range/Units White Blood Count 7.8 4.4-10.8 10^3/uL Red Blood Count 4.59 4.0-5.20 10^6/uL Hemoglobin 11.7 L 12.2-16.2 g/dL Hematocrit 36.6 36.0-46.0 % Mean Corpuscular Volume 79.9 L 80.0-100.0 fL Mean Corpuscular Hemoglobin 25.5 L 28.0-32.0 pg Mean Corpuscular Hemoglobin Concent 32.0 32.0-36.0 g/dL Red Cell Distribution Width 18.8 H 11.8-14.3 % Platelet Count 374 140-450 10^3/uL Mean Platelet Volume 8.2 6.9-10.8 fL Neutrophils (%) (Auto) 62.2 37.0-80.0 % Lymphocytes (%) (Auto) 30.5 10.0-50.0 % Monocytes (%) (Auto) 5.9 0.0-12.0 % Eosinophils (%) (Auto) 1.1 0.0-7.0 % Basophils (%) (Auto) 0.3 0.0-2.0 % Neutrophils # (Auto) 4.9 1.6-8.6 10 ^3/uL Lymphocytes # (Auto) 2.4 0.4-5.4 10 ^3/uL Monocytes # (Auto) 0.5 0-1.3 10 ^3/uL Eosinophils # (Auto) 0.1 0-0.8 10 ^3/uL Basophils # (Auto) 0 0-0.2 10 ^3/uL Nucleated Red Blood Cells 0.1 % Sodium Level 145 136-145 mmol/L Potassium Level 3.8 3.5-5.1 mmol/L Chloride Level 109 H 98-107 mmol/L Carbon Dioxide Level 28 20-31 mmol/L Anion Gap 8 5-15 Blood Urea Nitrogen 5 L 9-23 mg/dL Creatinine 0.84 0.550-1.02 mg/dL Glomerular Filtration Rate Calc 98 >90 mL/min BUN/Creatinine Ratio 6.0 L 10.0-20.0 Serum Glucose 84 74-106 mg/dL Calcium Level 9.6 8.7-10.4 mg/dL Troponin I High Sensitivity < 3 L </=34 ng/L Current Medications Medications (Trade) Dose Ordered Sig/Cornel Route Start Time Stop Time Status Last Admin Acetaminophen/ Hydrocodone Bitart ([place] 10/325MG Tab) 1 tab ONCE ONCE PO 09/18/25 20:45 09/18/25 20:46 DC 09/18/25 20:47 X-Ray, Labs, Meds, VS Comment [place] [id number] Ph: [phone] DIAGNOSTIC IMAGING Diagnostic Imaging Report : [id number] Signed PATIENT: DONALD CANTU ACCT: [id number] UNIT: [id number] : 2000 LOC: ER ROOM / BED: / AGE / SEX: 24 / F ADM STATUS: REG ER SERVICE 48 ORDERING PHYSICIAN: KAILASH CORTES MD PROCEDURE(s): CXR1 - CHEST XRAY 1 VIEW REASON: left chest pain ORDER NUMBER(s): [id number], ACCESSION NUMBER(s): [id number] CHEST RADIOGRAPH INDICATION: left chest pain TECHNIQUE: Single frontal view of the chest was obtained COMPARISON: XY CHEST XRAY 1 VIEW on DOS: 09/06/25 FINDINGS: Lines and Tubes: None. Lungs: Clear. Pleura: No pleural effusion or pneumothorax. Cardiomediastinal contours: Unremarkable IMPRESSION: No abnormality demonstrated. ATED BY: STEVE MCLEOD MD DICTATED DATE/TIME: 09/18/252016 SIGNED BY: STEVE MCLEOD MD SIGNED DATE/TIME: 09/18/252016 CC: Time of 1ST Reevaluation: 20:29 Reevaluation 1ST: Unchanged Patient Education/Counseling: Diagnosis, Treatment, Need For Follow Up Family Education/Counseling: No Family Present Departure 1 Departure Time of Disposition: 22:00 Impression: Primary Impression: Atypical chest pain Disposition: HOME / SELF CARE / HOMELESS Admit to: Tele Condition: Stable e-Prescriptions Gabapentin (Once-Daily) (Gabapentin) 300 Mg Tab 300 MG PO Q6HP PRN, #60 TAB Prov: KAILASH CORTES MD 09/18/25 Azithromycin (Azithromycin) 500 Mg Tab 1 TAB PO DAILY for 5 Days, #5 TAB Prov: KAILASH CORTES MD 09/18/25 Discharged With: Self Critical Care Note Critical Care Time?: No Stability Stability form required: No Heart Score Heart Score: Heart Score Response (Comments) Value History N/A 0 EKG N/A 0 Age N/A 0 Risk Factors N/A 0 Troponin N/A 0 Total 0 I personally scribed for KAILASH CORTES MD ([email or web address]) on 09/18/25 at 20:01. Electronically submitted by Celeste Romano ([employer]). I personally scribed for KAILASH CORTES MD ([email or web address]) on 09/18/25 at 21:08. Electronically submitted by Celeste Romano ([employer]). KAILASH CORTES MD Sep 18, 2025 20:01
--- NOTE | 2025-09-18 20:19 | DVH ---
CHEST RADIOGRAPH INDICATION: left chest pain TECHNIQUE: Single frontal view of the chest was obtained COMPARISON: XY CHEST XRAY 1 VIEW on DOS: 09/06/25 FINDINGS: Lines and Tubes: None. Lungs: Clear. Pleura: No pleural effusion or pneumothorax. Cardiomediastinal contours: Unremarkable IMPRESSION: No abnormality demonstrated.
[2025-09-18 20:37] LABS: Hemoglobin 11.7 g/dL (12.2-16.2)
[2025-09-18 20:38] LABS: Hematocrit 36.6 % (36.0-46.0); Mean Corpuscular Hemoglobin 25.5 pg (28.0-32.0); Mean Corpuscular Volume 79.9 fL (80.0-100.0); Nucleated Red Blood Cells % 0.1 %
[2025-09-18 20:41] LABS: Anion Gap 8 (5-15); Carbon Dioxide 28 mmol/L (20-31); Potassium 3.8 mmol/L (3.5-5.1); Sodium 145 mmol/L (136-145)
[2025-09-18 20:42] LABS: Calcium 9.6 mg/dL (8.7-10.4)
[2025-09-18 20:47] LABS: BUN/Creatinine Ratio 6.0 (10.0-20.0); Glucose 84 mg/dL (74-106)
[2025-09-18] MEDS: HYDROcodone-ACET 10/325MG TAB PO ONE (20:47)
[2025-09-18 20:53] LABS: Blood Urea Nitrogen 5 mg/dL (9-23); Chloride 109 mmol/L (98-107)
[2025-09-18] MEDS ORDERED: GABA300T4 PO (21:50)
[2025-09-18] MEDS ORDERED: AZIT500T66 PO (21:50)
[2025-09-18 22:02] VITALS: BP 132/82; PULSE 80; RESP 16; TEMP 99; O2SAT 100
== END 2025-09-18 22:01 | disposition home or self-care (01) ==
LOC: EDBD 19:06 → ER 19:06
DX: R07.89 Other chest pain (principal); N64.4 Mastodynia; F41.9 Anxiety disorder, unspecified; F17.210 Nicotine dependence, cigarettes, uncomplicated; F12.90 Cannabis use, unspecified, uncomplicated; Z90.89 Acquired absence of other organs
CPT/HCPCS: 36415; 71045; 80048; 84484; 85025